=== PATIENT | female | born 1990 | race Caucasian/White ===

== ENCOUNTER 2023-06-02 19:05 | Emergency (ER) | payer OTHER, SELFPAY ==
[2023-06-02 19:12] VITALS: BP 122/80; PULSE 86; RESP 20; TEMP 36.7; O2SAT 100; BMI 21.4
[2023-06-02 19:18] VITALS: PULSE 88
--- NOTE | 2023-06-02 19:23 | ED.CHESTPAI1 ---
HPI - Chest Pain General Chief Complaint: Chest Pain Stated Complaint: Shortness of Breath, Chest Pain Time Seen by Provider: 06/02/23 19:16 Source: patient and family Mode of arrival: walk-in Limitations: no limitations History of Present Illness HPI narrative: history of asthma. 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 left chest pressure present all day and feels short of breath. transient episode of nausea without recurrence. No fever or abdominal pain MD complaint: Reports chest pain Related Data Home Medications Medication Instructions Recorded Confirmed albuterol sulfate 90 mcg/actuation inhalation 06/02/23 aerosol inhaler (Ventolin HFA) buspirone 15 mg tablet mg 06/02/23 escitalopram oxalate 5 mg tablet mg 06/02/23 hydroxyzine pamoate 50 mg capsule mg 06/02/23 valacyclovir 500 mg tablet mg 06/02/23 Allergies Allergy/AdvReac Type Severity Reaction Status Date / Time No Known Drug Allergies Allergy Verified 06/02/23 19:15 Review of Systems ROS Status of ROS 10 or more systems reviewed and unremarkable except as noted in history and below [facility] Social History Smoking status: Current every day smoker Exam Constitutional Vital Signs, click to edit/add: Last Vital Signs Temp 98.1 F 06/02/23 19:12 Pulse 71 06/02/23 19:41 Resp 22 06/02/23 19:41 BP 122/80 06/02/23 19:12 Pulse Ox 100 06/02/23 19:41 O2 Del Method Room Air 06/02/23 19:41 Common normals: no apparent distress, average body habitus, oriented x3, no limitations, healthy appearing, alert and well nourished Eye Common normals: PERRL and EOMs intact bilaterally Respiratory Common normals: normal respiratory effort, no retractions, no use of accessory muscles and clear to auscultation bilaterally Cardio Common normals: regular rate, regular rhythm, S1 normal heart sound and S2 normal heart sound GI Common normals: Normal to inspection, nondistended, normoactive bowel sounds present, soft to palpation and non-tender Extremity Common normals: normal to inspection Neuro Common normals: oriented x3, CN's II-XII intact bilaterally, moves all extremities and no focal motor deficits Psych Appearance: grossly normal Course Vital Signs Vital signs: Vital Signs Temperature 98.1 F 06/02/23 19:12 Pulse Rate 86 06/02/23 19:12 Respiratory Rate 20 06/02/23 19:12 Blood Pressure 122/80 06/02/23 19:12 Pulse Oximetry 100 06/02/23 19:12 Oxygen Delivery Method Room Air 06/02/23 19:12 Temperature 98.1 F 06/02/23 19:12 Pulse Rate 71 06/02/23 19:41 Respiratory Rate 22 06/02/23 19:41 Blood Pressure 122/80 06/02/23 19:12 Pulse Oximetry 100 06/02/23 19:41 Oxygen Delivery Method Room Air 06/02/23 19:41 MDM - Chest Pain MDM Narrative Medical decision making narrative: asthmatic. Seen at urgent care and swabs for COVID19 neg. complains of constant chest pressure left sided. no fever. exam neg. found to have low potassium ? etiology. cxray and cardiac enzymes neg. Patient chest tightness resolved after solumedrol and duoneb. Discharged home to followup with her doctor Lab Data Labs: Lab Results 06/02/23 Range/Units 19:26 WBC 7.3 (4.0-11.0) 10^3/uL RBC 4.47 (4.20-5.40) 10^6/uL Hgb 13.6 (12.0-16.0) g/dL Hct 39.8 (36.0-48.0) % MCV 89.0 (81.0-99.0) fL MCH 30.4 (26.7-34.0) pg MCHC 34.2 (29.9-35.2) g/dL RDW 12.7 (11.0-15.0) % Plt Count 325 (150-450) 10^3/uL MPV 11.0 (9.5-13.5) fL Neut % (Auto) 44.8 (43.0-75.0) % Lymph % (Auto) 43.1 (20.5-60.0) % [place] % (Auto) 6.3 (1.7-12.0) % Eos % (Auto) 3.6 (0.9-7.0) % Baso % (Auto) 1.1 (0.2-2.0) % Neut # (Auto) 3.3 (1.4-6.5) 10^3/uL Lymph # (Auto) 3.1 (1.2-3.8) 10^3/uL [place] # (Auto) 0.5 (0.3-0.8) 10^3/uL Eos # (Auto) 0.3 (0.0-0.7) 10^3/uL Baso # (Auto) 0.1 (0.0-0.1) 10^3/uL Abs Immat Gran (auto) 0.08 H (0.00-0.03) 10^3/uL Imm/Tot Granulo (auto) 1.1 H (0.0-0.5) % D-Dimer <0.19 (<=0.59) mg/L FEU Sodium 138 (136-145) mmol/L Potassium 2.8 L* (3.5-5.1) mmol/L Chloride 102 (98-107) mmol/L Carbon Dioxide 26.2 (21.0-32.0) mmol/L Anion Gap 12.6 BUN 6.0 L (7.0-18.0) mg/dL Creatinine 0.64 (0.55-1.02) mg/dL Est GFR ( Amer) >60 (>=60) Est GFR (Non-Af Amer) >60 (>=60) BUN/Creatinine Ratio 9.4 Glucose 90 (74-106) mg/dL Calcium 9.4 (8.5-10.1) mg/dL Troponin I High Sens <4.0 L (4.0-51.3) pg/mL Imaging Data Chest x-ray: Radiologist's impression: ITS Impressions Chest X-Ray 06/02/23 19:26 IMPRESSION: No acute cardiopulmonary process. Electronically authenticated by: LEO AGUILLON Date: 06/02/2023 20:29 Discharge Plan Discharge Chief Complaint: Chest Pain Clinical Impression: Atypical chest pain, Hypokalemia Prescriptions / Home Meds: No Action hydroxyzine pamoate 50 mg capsule valacyclovir 500 mg tablet albuterol sulfate [Ventolin HFA] 90 mcg/actuation HFA aerosol inhaler INHALATION buspirone 15 mg tablet escitalopram oxalate 5 mg tablet Instructions: Noncardiac Chest Pain (ED) Referrals: [facility] [Primary Care Provider] - 1 week
--- NOTE | 2023-06-02 19:26 | XR_ITS ---
[address] [address] Patient Name: DALIA AKHTAR MRN: [id number] date: 1990 Sex: F Assigned Patient Location: ER Current Patient Location: ER Accession/Order Number: [id number] Exam Date: 06/02/2023 19:44 Report Date: 06/02/2023 20:29 At the request of: DANIELLE SANCHEZ Procedure: XR chest 1V EXAM: XR chest 1V CLINICAL INDICATION: chest pain TECHNIQUE: Portable frontal semi-erect view of the chest. COMPARISON: None. FINDINGS: Lines and tubes: None. Lungs: No convincing focal infiltrates. No pleural effusion or pneumothorax. Heart: Cardiac and mediastinal contours are unremarkable. No overt pulmonary vascular congestion. Osseous structures: No acute abnormalities. XR/XR chest 1V IMPRESSION: No acute cardiopulmonary process. Electronically authenticated by: LEO AGUILLON Date: 06/02/2023 20:29
--- NOTE | 2023-06-02 19:26 | ECG_ITS ---
[facility] Test Date: 2023-06-02 Pat Name: DALIA AKHTAR Department: Room: - Gender: Female [employer]: : 1990 Requested By: [id number] Order Number: [id number] Reading MD: WILLOW CARO Measurements Intervals [place] Rate: 88 P: 74 MI: 130 QRS: 80 QRSD: 80 T: 75 QT: 368 QTc: 414 Interpretive Statements 1100 Sinus rhythm 1102 Sinus arrhythmia 9110 normal ECG No previous ECG available for comparison Electronically Signed On 06-03-2023 6:54:49 EST by WILLOW CARO
[2023-06-02] MEDS: METHYLPREDNISOLONE SOD SUCC PF 125 MG/2 ML VIAL IVP (19:38)
[2023-06-02 19:41] VITALS: PULSE 71; RESP 22; O2SAT 100
[2023-06-02] MEDS: IPRATROPIUM/ALBUTEROL SULFATE 3 ML AMPUL.NEB IH (19:41)
--- NOTE | 2023-06-02 19:44 | PC.NURSE ---
Feels like she cant get a full breath
[2023-06-02 20:08] LABS: Basophils Absolute Auto 0.1 10^3/uL (0.0-0.1); Basophils Percent Auto 1.1 % (0.2-2.0); Eosinophils Absolute Auto 0.3 10^3/uL (0.0-0.7); Eosinophils Percent Auto 3.6 % (0.9-7.0); Hematocrit 39.8 % (36.0-48.0); Hemoglobin 13.6 g/dL (12.0-16.0); Immature Granulocytes Abs Auto 0.08 10^3/uL (0.00-0.03); Immature Granulocytes Pct Auto 1.1 % (0.0-0.5); Lymphocytes Absolute Auto 3.1 10^3/uL (1.2-3.8); Lymphocytes Percent Auto 43.1 % (20.5-60.0); Mean Corpuscular HGB Conc 34.2 g/dL (29.9-35.2); Mean Corpuscular Hemoglobin 30.4 pg (26.7-34.0); Monocytes Absolute Auto 0.5 10^3/uL (0.3-0.8); Monocytes Percent Auto 6.3 % (1.7-12.0); Neutrophils Absolute Auto 3.3 10^3/uL (1.4-6.5); Neutrophils Percent Auto 44.8 % (43.0-75.0); Platelet Count 325 10^3/uL (150-450); Red Blood Count 4.47 10^6/uL (4.20-5.40); Red Cell Distribution Width 12.7 % (11.0-15.0); White Blood Count 7.3 10^3/uL (4.0-11.0)
[2023-06-02 20:17] LABS: D Dimer <0.19 mg/L FEU (<=0.59)
[2023-06-02 20:23] LABS: Anion Gap 12.6; BUN Creatinine Ratio 9.4; Calcium 9.4 mg/dL (8.5-10.1); Carbon Dioxide 26.2 mmol/L (21.0-32.0); Chloride 102 mmol/L (98-107); Estimated GFR (African America >60 (>=60); Estimated GFR (Non-African Ame >60 (>=60); Glucose 90 mg/dL (74-106); Sodium 138 mmol/L (136-145); Troponin I High Sensitivity <4.0 pg/mL (4.0-51.3)
[2023-06-02 20:25] LABS: Potassium 2.8 mmol/L (3.5-5.1)
[2023-06-02] MEDS: POTASSIUM CHLORIDE 10 MEQ ER TABLET 40 MEQ PO (20:49)
[2023-06-02 21:37] VITALS: BP 92/52; PULSE 74; RESP 20; O2SAT 99
== END 2023-06-02 21:39 | disposition home or self-care (01) ==
PROVIDERS: Emergency Provider Internal Medicine
DX: R07.89 Other chest pain (principal); E87.6 Hypokalemia; J45.909 Unspecified asthma, uncomplicated; Z79.899 Other long term (current) drug therapy; F17.210 Nicotine dependence, cigarettes, uncomplicated
CPT/HCPCS: 36415; 71045; 80048; 84484; 85025; 85378; 87804; 87811; 93005; 94640; 96374; 99285; J2930

== ENCOUNTER 2024-08-30 17:10 | Emergency (ER) | payer OTHER, SELFPAY ==
[2024-08-30] VITALS (15 sets, daily range): BP systolic 97–124; BP diastolic 59–71; PULSE 59–87; TEMP 37.1; O2SAT 96–100; BMI 19.8
--- OUTSIDE RECORDS SUMMARY | 2024-08-30 17:17 | XMS_ITS | CCD ---
Author Organization [facility] CliniSynv Care Team Providers Care Agricultural Aircraft Pilot Name Role Phone Ofelia Magana Unavailable Unavailable Primary Care Provider Unavailcarlyn MckoyMateo tran Unavailable China Truong Unavailable OFELIA MAGANA Primary Care Unavailable DANIELLE SANCHEZ Admitting Unavailable DANIELLE SANCHEZ Attending Unavailable DANIELLE SANCHEZ Consulting Unavailable RANDY CALVO Consulting Unavailable Natalie Prieto Unavailable Kristie Posada Unavailable QUIN RICE Referring Unavailable OFELIA MAGANA Primary Care Unavailable OFELIA MAGANA Referring Unavailable OFELIA MAGANA Primary Care Unavailable OFELIA MAGANA Referring Unavailable OFELIA MAGANA Primary Care Unavailable OFELIA MAGANA Referring Unavailable OFELIA MAGANA Primary Care Unavailable Estela NUCLEAR PHYSICIST-ANTHROPOLOGIST, Ofelia Primary Care Provide r Allergies Allergy Classification Reported Allergen(s) Allergy Type Date of Onset Reaction(s) Facility (5 sources) Shellfish; Translations: [SHELLFISH DERIVED] Propensity to adverse reactions to food (disorder) 1 Hives, Rash [facility] Repository Medications Current Medications Medication Drug Class(es) Dates Sig (Normalized) Sig (Original) [id number] 200 actuat albuterol 0.09 mg/actuat metered dose inhaler (20 sources) beta2-Adrenergic Agonist Start: 06-26-2024 take 1 puff(s) by inhalation every four to six hours as needed for wheezing Albuterol Sulfate 90 mcg/actuation HFA aerosol inhaler Active 2 PUFF INHALATION EVERY 4-6 HOURS as needed for shortness of breath or wheezing 8.5 June 26, 2024 12:00am Start: 03-14-2022 take 2 puff(s) by in halation every four hours as needed Albuterol Sulfate HFA 108 (90 Base) MCG/ACT 2 puffs as needed Inhalation every 4 hrs Mar, Active Start: 03-14-2022 take 2 puff(s) by in halation every four hours as needed Albuterol Sulfate HFA 108 (90 Base) MCG/ACT 2 puffs as needed Inhalation every 4 hrs for 30 days Mar, Not-Taking/PRN Start: 03-14-2022 take 2 puff(s) by in halation every four hours as needed Albuterol Sulfate HFA 108 (90 Base) MCG/ACT 2 puffs as needed Inhalation every 4 hrs for 30 days Mar, Not-Taking Start: 05-21-2021 take 2 puff(s) by in halation every four hours as needed Albuterol Sulfate HFA 108 (90 Base) MCG/ACT 2 puffs as needed Inhalation every 4 hrs May, Active Start: 05-21-2021 take 2 puff(s) by in halation every four hours as needed Albuterol Sulfate HFA 108 (90 Base) MCG/ACT 2 puffs as needed Inhalation every 4 hrs May, Active Start: 11-30-2020 take 1 puff(s) by in halation every four hours as needed ProAir HFA 108 (90 Base) MCG/ACT 1 puff as needed Inhalation every 4 hrs for 30 days Nov, Not-Taking Start: 10-18-2020 take 2 puff(s) by in halation every four hours as needed Albuterol Sulfate HFA 108 (90 Base) MCG/ACT 2 puffs as needed Inhalation every 4 hrs Nov, Active amoxicillin 875 mg / clavulanate 125 mg oral tablet (4 sources) Penicillin-class Antibacterial Start: 08-06-2021 take 1 tablet by mouth every twelve hours Amoxicillin-Pot Clavulanate 875-125 MG 1 tablet Orally every 12 hrs for 7 day(s) Jul, Active Start: 08-07-2020 take 1 tablet by shahbaz th every twelve hours Amoxicillin-Pot Clavulanate 875-125 MG 1 tablet Orally every 12 hrs for 7 days Jul, Not-Taking ARIPiprazole (3 sources) Atypical Antipsychotic Abilify Active azithromycin 250 mg oral tablet (3 sources) Macrolide Antimicrobial Start: 2021 Azithromycin 250 MG 2 tablets on the first day, then 1 tablet daily for 4 days Orally Once a day for 5 day(s) May, Active cariprazine 1.5 mg oral capsule (7 sources) Atypical Antipsychotic take 1 capsule by mouth every twenty-four hours Vraylar 1.5 MG 1 capsule Orally Once a day Active clotrimazole 0.01 mg/mg topical ointment (3 sources) Azole Antifungal Start: 2020 Alevazol 1 % 1 application Externally Twice a day for 28 day(s) Jan, Active 12 hr dextromethorphan hydrobromide 30 mg / guaiFENesin 600 mg extended release oral tablet (2 sources) Uncompetitive C-waogdp-A-aspartate Receptor Antagonist, Sigma-1 Agonist Start: 2021 take 1 tablet by mouth every twelve hours Mucinex DM 30-600 MG 1 tablet as needed Orally every 12 hrs May, Active doxycycline monohydrate 100 mg oral capsule (3 sources) Tetracycline-class Drug Start: 2020 take 1 capsule by mouth every twelve hours Doxycycline Monohydrate 100 MG 1 capsule Orally every 12 hrs for 7 days Jan, Active Fish Oils (7 sources) take 1 capsule by mouth once daily Fish Oil 1000 MG 1 capsule Orally Once a day Active fluconazole 150 mg oral tablet (2 sources) Azole Antifungal Start: 2021 Diflucan 150 MG 1 tablet Orally take 1 tablet now then 1 tablet in 7 days for 2 days May, Active methylPREDNISolone 4 mg oral tablet (14 sources) Corticosteroid Start: 2024 take 1 tablet by mouth once Methylprednisolone (Medrol (Chaka)) 4 mg tablets,dose pack Active 0 PO per package directions June 26, 2024 12:00am PO PER PKG DIR for 6 days Start: 03-14-2022 methylPREDNISo lone 4 MG as directed Orally Once a day for 6 days Mar, Not-Taking/PRN Start: 11-27-2021 methylPREDNISo lone 4 MG as directed Orally Once a day for 6 days Nov, Active Start: 05-21-2021 methylPREDNISo lone 4 MG as directed Orally Once a day for 6 days May, Active Start: 11-30-2020 Medrol (Chaka) 4 MG as directed Orally for daily dose take half with breakfast half with dinner for 6 days Nov, Not-Taking mupirocin 0.02 mg/mg topical ointment (4 sources) RNA Synthetase Inhibitor Antibacterial Start: 04-01-2021 Mupirocin 2 % 1 application to affected area Externally once per day for 7 days Mar, Active Start: 01-25-2021 Mupirocin 2 % 1 application with Qtip to affected area Externally 2 times a day for 7 days Jan, Active norethindrone 0.35 mg oral tablet (1 source) Start: 12-17-2023 take 1 tablet by mouth in the morning norethindrone (MICRONOR) 0.35 mg tablet Indications: Encounter for initial prescription of contraceptive pills Take 1 tablet (0.35 mg total) by mouth in the morning. 84 tablet 3 12/17/2023 Active omega 7-sgt-syl-fish oil (Fish OiL) 300-1,000 mg capsule (3 sources) omega 9-ctg-moj-fish oil (Fish OiL) 300-1,000 mg capsule Take by mouth. Active ondansetron 4 mg disintegrating oral tablet (9 sources) Serotonin-3 Receptor Antagonist Start: 08-04-2021 take 1 tablet by mouth every eight hours Ondansetron 4 MG 1 tablet on the tongue and allow to dissolve Orally tid for 5 day(s) Jul, Active Start: 04-01-2021 take 1 tablet by shahbaz th every eight hours as needed Zofran ODT 4 MG 1 tablet on the tongue and allow to dissolve Orally every 8 hrs as needed for 10 day(s) Mar, Active Start: 08-04-2020 take 1 tablet by shahbaz th every eight hours oseltamivir 75 mg oral capsule (1 source) Neuraminidase Inhibitor Start: 06-26-2024 take 1 capsule by mouth twice daily Oseltamivir 75 mg capsule Active 75 MG PO Twice daily 02 13June 26, 2024 12:00am Completed/Discontinued Medications Medication Drug Class(es) Dates Sig (Normalized) Sig (Original) amitriptyline hydrochloride 50 mg oral tablet (8 sources) Tricyclic Antidepressant Start: 02-02-2022 take 1 tablet by mouth every twenty-four hours Amitriptyline HCl 25 MG 1 tablet at bedtime Orally Once a day for 30 day(s) Jan, Active Start: 02-02-2022 take 1 tablet by shahbaz th every twenty-four hours Amitriptyline HCl 50 MG 1 tablet at bedtime Orally Once a day for 30 day(s) Jan, Not-Taking/PRN amoxicillin 500 mg oral capsule (7 sources) Penicillin-class Antibacterial Start: 09-30-2023 End: 06-26-2024 take 1 capsule by mouth every twelve hours Amoxicillin 500 mg capsule Discontinued 500 MG PO Every 12 hours 28 02September 29, 2023 11:00pm June 26, 2024 10:37am Start: 04-21-2023 take 1 tablet by shahbaz th every twelve hours Amoxicillin 500 MG 1 tablet Orally Twice a day for 10 Apr, Not-Taking/PRN Start: 02-13-2021 take 1 tablet by shahbaz th every eight hours Amoxicillin 875 MG 1 tablet Orally every 8 hrs for 10 day(s) Feb, Not-Taking benzonatate 100 mg oral capsule (3 sources) Non-narcotic Antitussive Start: 11-04-2019 take 1 capsule by mouth three times daily as needed Tessalon Perles 100 MG 1 capsule as needed Orally Three times a day for 5 days Oct, Not-Taking brompheniramine maleate 0.4 mg/ml / dextromethorphan hydrobromide 2 mg/ml / pseudoephedrine hydrochloride 6 mg/ml oral solution (5 sources) alpha-Adrenergic Agonist, Uncompetitive P-xnjeuh-O-asparta te Receptor Antagonist, Sigma-1 Agonist Start: 03-28-2022 take 10 mL by mouth every six hours as needed Pseudoeph-Bromp hen-DM 30-2-10 MG/5ML 10 mL Orally every 6 hours for 5 days Mar, Not-Taking/PRN 60 actuat budesonide 0.08 mg/actuat / formoterol fumarate 0.0045 mg/actuat metered dose inhaler (9 sources) Corticosteroid, beta2-Adrenergic Agonist Start: 12-04-2020 take 2 puff(s) by inhalation twice daily Symbicort 80-4.5 MCG/ACT 2 puffs Inhalation Twice a day for 30 day(s) Nov, Active Start: 12-04-2020 take 2 puff(s) by in halation twice daily as needed Symbicort 80-4.5 MCG/ACT 2 puffs Inhalation Twice a day for 30 day(s) Nov, Not-Taking/PRN busPIRone hydrochloride 15 m g oral tablet (18 sources) Start: 09-30-2023 End: 06-26-2024 Buspirone 15 mg tablet Discontinued MG PO September 29, 2023 11:00pm June 26, 2024 10:37am Start: 09-30-2023 Buspirone Acti ve MG PO September 30, 2023 12:00am take 1 tablet by shahbaz th in the morning busPIRone (BUSPAR) 5 mg tablet Take 1 tablet (5 mg total) by mouth in the morning. Active take 1 tablet by shahbaz th every twelve hours busPIRone HCl 15 MG 1 tablet Orally Twice a day Active BuSpar Active cetirizine hydrochloride 10 mg oral tablet (3 sources) Histamine-1 Receptor Antagonist Start: 11-04-2019 take 1 tablet by mouth every twenty-four hours Cetirizine HCl 10 MG 1 tablet Orally Once a day for 30 day(s) Oct, Not-Taking clindamycin 300 mg oral capsule (3 sources) Lincosamide Antibacterial Start: 12-04-2022 take 1 capsule by mouth every eight hours Clindamycin HCl 300 MG 1 cap(s) Orally tid for 10 days Nov, Not-Taking/PRN cyclobenzaprine hydrochloride 10 mg oral tablet (4 sources) Muscle Relaxant take 1 tablet by mouth every eight hours Cyclobenzaprine HCl 10 MG 1 tab(s) Orally 3 times a day Not-Taking/PRN dextromethorphan hydrobromide 1.5 mg/ml / pyrilamine maleate 1.5 mg/ml oral solution (10 sources) Uncompetitive V-oasesm-T-aspart ate Receptor Antagonist, Sigma-1 Agonist Start: 03-14-2022 [place] DM 7.5-7.5 MG/5ML 10 ml Orally every 6-8 hours as needed for 8 days Mar, Not-Taking/PRN Start: 11-30-2020 [place] DMT 30- 30 MG 1 tablet Orally every 6-8 hours for 7 days Nov, Not-Taking escitalopram 5 mg oral tablet (13 sources) Serotonin Reuptake Inhibitor Start: 09-30-2023 End: 06-26-2024 Escitalopram Oxalate 5 mg tablet Discontinued MG PO September 29, 2023 11:00pm June 26, 2024 10:37am Start: 09-30-2023 Escitalopram O xalate Active MG PO September 30, 2023 12:00am End: 10-01-2023 take 1 tablet by mouth once daily escitalopram (LEXAPRO) 20 mg tablet Take 20 mg by mouth daily. 10/01/2023 Discontinued (Therapy completed) Lexapro Active fluticasone propionate 0.05 mg/actuat metered dose nasal spray (11 sources) Corticosteroid Start: 03-28-2022 take 1 spray(s) nasal route once daily as needed Flonase Allergy Relief 50 MCG/ACT 1 spray in each nostril Nasally Once a day for 14 day(s) Mar, Not-Taking/PRN Start: 03-28-2022 take 1 spray(s) nasa l route once daily Flonase Allergy Relief 50 MCG/ACT 1 spray in each nostril Nasally Once a day for 14 day(s) Mar, Not-Taking Start: 11-04-2019 take 1 spray(s) nasa l route once daily Fluticasone Propionate 50 MCG/ACT 1 spray in each nostril Nasally Once a day for 14 day(s) Nov, Not-Taking hydrOXYzine pamoate 50 mg oral capsule (19 sources) Antihistamine Start: 09-30-2023 End: 06-26-2024 Hydroxyzine Pamoate 50 mg capsule Discontinued MG PO September 29, 2023 11:00pm June 26, 2024 10:37am Start: 09-30-2023 Hydroxyzine Pa moate Active MG PO September 30, 2023 12:00am take 1 tablet by shahbaz th in the morning, then take 1 tablet by mouth at bedtime hydrOXYzine (ATARAX) 10 mg tablet Take 1 tablet (10 mg total) by mouth in the morning and 1 tablet (10 mg total) before bedtime. Active take 1 tablet by shahbaz th every twenty-four hours hydrOXYzine HCl 50 MG 1 tablet at bedtime as needed Orally Once a day Active hydrOXYzine HCl Active ibuprofen 600 mg oral tablet (6 sources) Nonsteroidal Anti-inflammatory Drug Start: 12-04-2022 take 1 tablet by mouth three times daily at mealtime as needed Ibuprofen 600 MG 1 tablet with food or milk as needed Orally tid prn for 10 days Nov, Not-Taking/PRN Start: 02-13-2021 take 1 tablet by shahbaz th three times daily at mealtime as needed Ibuprofen 800 MG 1 tablet with food or milk as needed Orally Three times a day for 10 day(s) Feb, Active 1 ml medroxyPROGESTERone acetate 150 mg/ml injection (14 sources) Progestin Start: 10-01-2023 End: 10-01-2023 medroxyPROGESTERone (DEPO-PROVERA) injection 150 mg Start: 10-01-2023 End: 10-01-2023 inject 150 mg by intramuscular injection once 150 mg, intramuscular, Once, On Fri10/01/23 at 1200, For 1 dose, Look-alike/sound-alike medication - verify indication for use. Start: 11-27-2021 Depo-Provera 1 50 MG/ML 1 ml Intramuscular for 30 day(s) Nov, Active End: 12-17-2023 medroxyPROGESTERone (DEPO-UT OVERA) 150 mg/mL injection Inject 1 mL (150 mg total) into the appropriate muscle every 3 (three) months. 12/17/2023 Discontinued (Alternate therapy) metroNIDAZOLE 500 mg oral tablet (3 sources) Nitroimidazole Antimicrobial Start: 08-07-2020 take 1 tablet by mouth twice daily Flagyl 500 MG 1 tablet Orally twice daily for 7 days Jul, Not-Taking NON FORMULARY (1 source) End: 10-01-2023 OLANZapine (7 sources) Atypical Antipsychotic OLANZapine Not-Taking OLANZapine Activ e predniSONE 20 mg oral tablet (4 sources) Start: 06-24-2022 take 1 tablet by mouth every twelve hours predniSONE 20 MG 1 tablet Orally 2 times a day for 5 day(s) Jun, Not-Taking/PRN Sulfamethoxazole / Trimethoprim (3 sources) Dihydrofolate Reductase Inhibitor Antibacterial, Sulfonamide Antimicrobial Bactrim Not-Taking Bactrim Active Toradol 30 mg/ml (14 sources) Start: 06-24-2022 Toradol 30 mg/ ml Jun, 30 mg Start: 02-13-2021 Toradol 30 mg/ ml Feb, 60 mg triamcinolone acetonide 40 mg/ml injectable suspension (5 sources) Corticosteroid Start: 06-24-2022 Kenalog-40 Jun, 40 mg Start: 04-01-2021 Triamcinolone Acetonide 0.5 % 1 application to affected area Externally Twice a day for 7 days Mar, Active valACYclovir 500 mg oral tablet (2 sources) Herpesvirus Nucleoside Analog DNA Polymerase Inhibitor, Herpes Simplex Virus Nucleoside Analog DNA Polymerase Inhibitor, Herpes Zoster Virus Nucleoside Analog DNA Polymerase Inhibitor Start: 08-21-2022 End: 10-29-2023 take 1 tablet by mouth in the morning, then take 1 tablet by mouth at bedtime valACYclovir (VALTREX) 500 mg tablet Indications: Vulvar lesion Take 1 tablet (500 mg total) by mouth in the morning and 1 tablet (500 mg total) before bedtime. 10 tablet 08/21/2022 10/29/2023 Discontinued (Therapy completed) Problems Active Problems Problem Classification Problem Date Documented Da te Episodic/Chronic Abdominal pain (3 sources) Unspecified abdominal pain; Translations: [UNSPECIFIED ABDOMINAL PAIN] Onset: 06-28-2022 Episodic Anxiety disorders (15 sources) Generalized anxiety disorder; Translations: [Generalized anxiety disorder] 12-17-2023 Chronic Asthma (20 sources) Acute exacerbation of mild persistent asthma; Translations: [Mild persistent asthma with (acute) exacerbation] Onset: 11-27-2021 Resolved: 11-27-2021 Chronic Bacterial infection; unspecified site (1 source) Other specified bacterial agents as the cause of diseases classified elsewhere Episodic Contraceptive and procreative management (7 sources) Encounter for other general counseling and advice on contraception; Translations: [Contraception ] Onset: 11-27-2021 Resolved: 11-27-2021 Episodic Delirium, dementia, and amnestic and other cognitive disorders (9 sources) Postconcussion syndrome; Translations: [Postconcussional syndrome] Chronic Diabetes mellitus without complication (1 source) Other abnormal glucose Episodic Disorders of teeth and jaw (3 sources) Periapical abscess without sinus; Translations: [Dental caries, unspecified] Onset: 02-13-2021 Resolved: 02-13-2021 Episodic Headache; including migraine (3 sources) Migraine; Translations: [Migraine, unspecified, not intractable, without status migrainosus] Onset: 12-15-2018 12-15-2018 Chronic Immunizations and screening for infectious disease (4 sources) Contact with and (suspected) exposure to other viral communicable diseases; Translations: [Suspected clinical finding] Onset: 03-27-2021 Resolved: 03-27-2021 Episodic Influenza (2 sources) Influenza due to Influenza A virus; Translations: [Influenza due to other identified influenza virus with other respiratory manifestations] 06-26-2024 Episodic Intracranial injury (1 source) Concussion without loss of consciousness, subsequent encounter Episodic Mood disorders (1 source) Bipolar I disorder; Translations: [Bipolar disorder, unspecified] 12-17-2023 Chronic Other aftercare (1 source) Other fdc (current) drug therapy; Translations: [OTH MCC CURRENT DRUG THERAPY] Onset: 07-01-2022 Episodic Other female genital disorders (2 sources) Personal history of other diseases of the female genital tract; Translations: [Personal history of other diseases of the female genital tract] Onset: 10-29-2023 Episodic Other gastrointestinal disorders (1 source) Constipation, unspecified; Translations: [CONSTIPATION UNSPECIFIED] Onset: 07-01-2022 Episodic Other nervous system disorders (3 sources) Carpal tunnel syndrome of left wrist; Translations: [Carpal tunnel syndrome, left upper limb] Onset: 12-17-2023 09-30-2023 Chronic Other nervous system disorders (1 source) Carpal tunnel syndrome, left upper limb; Translations: [Carpal tunnel syndrome] 09-30-2023 Chronic Other upper respiratory disease (14 sources) Seasonal allergy; Translations: [Other seasonal allergic rhinitis] Chronic Other upper respiratory infections (7 sources) Acute pharyngitis, unspecified; Translations: [Acute upper respiratory infection, unspecified] Episodic Ovarian cyst (1 source) Unspecified ovarian cyst, right side; Translations: [UNSPECIFIED OVARIAN CYST RIGHT SIDE] Onset: 07-01-2022 Episodic Screening and history of mental health and substance abuse codes (2 sources) Encounter for screening for depression; Translations: [Standardized adult depression screening tool completed ] Onset: 10-29-2023 4 Episodic Sprains and strains (1 source) Strain of muscle, fascia and tendon at neck level, initial encounter Episodic Substance-related disorders (1 source) Nicotine dependence, cigarettes, uncomplicated; Translations: [NICOTINE DEPEND CIGARETTES UNCOMP] Onset: 07-01-2022 Chronic Unclassified (1 source) Gynecologic Exam Onset: 10-29-2023 Past or Other Problems Problem Classification Problem Date Documented Da te Episodic/Chronic Allergic reactions (1 source) Allergic contact dermatitis, unspecified cause Onset: 04-01-2021 Resolved: 04-01-2021 Episodic Mood disorders (2 sources) Mood disorders Onset: 10-29-2023 10-29-2023 Nausea and vomiting (1 source) Nausea Onset: 04-01-2021 Resolved: 04-01-2021 Episodic Other female genital disorders (1 source) History of abnormal cervical Papanicolaou smear ; Translations: [Personal history of other diseases of the female genital tract] 10-29-2023 Episodic Other nutritional; endocrine; and metabolic disorders (1 source) Abnormal weight loss Onset: 04-01-2021 Resolved: 04-01-2021 Episodic Pneumonia (except that caused by tuberculosis or sexually transmitted disease) (1 source) Pneumonia, unspecified organism Onset: 05-21-2021 Resolved: 05-21-2021 Episodic Residual codes; unclassified (1 source) Nicotine-filled electronic cigarette user; Translations: [Tobacco use] Onset: 12-17-2023 12-17-2023 Episodic Unclassified (1 source) Contact with and (suspected) exposure to covid-19 Z20.822 Results Test Name Value Interpretation Reference Range Facility CHLAMYDIA/GC PCR, FLon 10-28 CHLAMYDIA/GC PCR, FL SPECIMEN SOURCE ThinPrep CHLAMYDIA DNA(PCR) Negative (qualifier value) Chlamydia trachomatis not detected by nucleic acid amplification. This does not exclude the possibility of infection because results are dependent on adequate specimen collection. GONORRHOEAE DNA(PCR) Negative (qualifier value) Neisseria gonorrhoeae not detected by nucleic acid amplification. This does not exclude the possibility of infection because results are dependent on adequate specimen collection. Normal [facility] Comment on above: Performed By: #### C GT #### [facility] ([id number]) [address] [place] [address], [place] [id number] [facility] ([id number]) [address] [place] [address], [address] [place] [address] Cytologyon 10-29-2023 Cytology Abnormal [facility] Comment on above: Result Comment: [facility] [address] [place] [id number] Gynecologic Cytology Consultation Patient Name:NATALYA KINCAID:1990 (Age: 32)Gender:FTaken:4Reported:4Physician(s):Quin Rice APRN-CNPCopy To: Rec. #:[id number]: #[id number] Final Cytologic Interpretation ThinPrep Pap Test (Cervical): Satisfactory for evaluation. A transformation zone component is present. SQUAMOUS EPITHELIAL CELL ABNORMALITY Atypical squamous cells of undetermined significance (ASC-US). 11/10/2023 Interpretation performed at [facility], [address] [place] [id number], License number: [id number]. Electronically Signed Out By Tarun Hayes MD Date of Last Menstrual Period: (None Given) Other Clinical Conditions: Previous abnormal pap Z01.419 Drop Crew Laborer exam wo/abn findings Source of Specimen ThinPrep Pap Test (Cervical) Thin Prep Pap (FINANCIAL ADVISER) Fee Code(s): G0145, 79474 The Pap test is a screening test with an inherent, but low, probability of error. The Pap test is primarily effective for the diagnosis and prevention of squamous cell carcinoma. Regular screening is critical for prevention. ThinPrep liquid-based slides, which meet the Core Analysis Operator criteria for automated screening, have been screened by the ThinPrep Imaging System (as of 01/26/07) along with an additional manual rescreening by a chin strap maker and, if indicated, by a pathologist. HIGH RISK HPV W/GENOon 10-28 HPV 31+33+35+39+45+51+52+5 6+58+59+66+68 DNA ETHAN+probe Ql (Cvx) HPV SPECIMEN TYPE ThinPrep HPV 16 Negative (qualifier value) HPV 18 Negative (qualifier value) OTHER HIGH RISK HPV Negative (qualifier value) HPV types 31,33,35,39,45,52,56 ,58,59,66 and 68 DNA were undetectable. Normal [facility] Comment on above: Performed By: #### 7 1431-1 #### [facility] ([id number]) [address] [facility] [place] [address] [facility] ([id number]) [address] [place] [address], [address] [place] [address] POCT , urineon 09-10 Beta HCG ( test) Ql (U) Negative [facility] Interpretation and review of laboratory results Normal [facility] No Panel InformationOrdered By: Ashley Newsome on 09-30-2023 Quick Strep (POC) [facility] COVID + FLU Quick Testingon 06-02-2023 SARS-CoV-2 (COVID-19) RNA ETHAN+probe Ql (Unsp spec) Negative [email or web address] Other COVID + FLU Quick Testing Negative [email or web address] Other COVID + FLU Quick Testingon 04-21-2023 SARS-CoV-2 (COVID-19) RNA ETHAN+probe Ql (Unsp spec) Negative [email or web address] Other COVID + FLU Quick Testing negtive [employer] [facility] [employer] Other COVID + FLU Quick Testing Negative [email or web address] Other Quick Strepon 04-21-2023 S. pyogenes Org specific cx Ql (Throat) Negative [email or web address] Other Quick Strep [email or web address] Other AMYLASEon 06-29-2022 Amylase [Catalytic activity/Vol] 19 U/L Critically low 25-[address] [facility] Comment on above: Performed By: #### C KARUNA GARCIA AMY #### [facility] [address] [place] [address] Dr. Robson Marino CBC AUTO DIFFon 06-29-2022 BASO # 0.0 103/ul Normal 0.0-0.[address] [facility] Comment on above: Performed By: #### C BC #### [facility] [address] [address] [address] Robson Marino Basophils/100 WBC (Bld) 0.2 % Normal 0.2-2.[address] [facility] Comment on above: Performed By: #### C BC #### [facility] [address] [address] [address] Robson Marino EO # 0.1 103/ul Normal 0.0-0.7 [facility] Comment on above: Performed By: #### C BC #### [facility] [address] [place] [address] Dr. Robson Marino Eosinophils/100 WBC (Bld) 0.7 % Critically low 0.9-7.[address] [facility] Comment on above: Performed By: #### C BC #### [facility] [address] [place] [address] Dr. Robson Marino Erythrocyte distribution width (RBC) [Ratio] 13.2 % Normal 11.0-15.[address] [facility] Comment on above: Performed By: #### C BC #### [facility] [address] [place] [address] Dr. Robson Marino Hematocrit (Bld) [Volume fraction] 38.3 % Normal 36.0-48.[address] [facility] Comment on above: Performed By: #### C BC #### [facility] [address] [place] [address] Dr. Robson Marino Hemoglobin (Bld) [Mass/Vol] 13.0 g/dL Normal 12.0-16.0 [facility] Comment on above: Performed By: #### C BC #### [facility] [address] [place] [address] Dr. Robson Marino IG # 0.06 10e3/ul Critically high 0.00-0.03 [facility] Comment on above: Performed By: #### C BC #### [facility] [address] [place] [address] Dr. Robson Marino IG % 0.7 % Critically high 0.0-0.5 [facility] Comment on above: Performed By: #### C BC #### [facility] [address] [place] [address] Dr. Robson Marino LYMPH # 1.6 103/ul Normal 1.2-3.8 [facility] Comment on above: Performed By: #### C BC #### [facility] [address] [place] [address] Dr. Robson Marino Lymphocytes/100 WBC (Bld) 17.4 % Critically low 20.5-60.0 [facility] Comment on above: Performed By: #### C BC #### [facility] [address] [place] [address] Dr. Robson Marino MANUAL DIFF REQ NO Normal [facility] Comment on above: Performed By: #### C BC #### [facility] [address] [place] [address] Dr. Robson Marino MCH (RBC) [Entitic mass] 29.6 pg Normal 26.7-34.[address] [facility] Comment on above: Performed By: #### C BC #### [facility] [address] [place] [address] Dr. Robson Marino MCHC (RBC) [Mass/Vol] 33.9 g/dL Normal 29.9-35.2 [facility] Comment on above: Performed By: #### C BC #### [facility] [address] [place] [address] Dr. Robson Marino MCV (RBC) [Entitic vol] 87.2 fL Normal 81.0-99.0 [facility] Comment on above: Performed By: #### C BC #### [facility] [address] [place] [address] Dr. Robson Marino MONO # 0.5 103/ul Normal 0.3-0.8 [facility] Comment on above: Performed By: #### C BC #### [facility] [address] [place] [address] Dr. Robson Marino Monocytes/100 WBC (Bld) 5.1 % Normal 1.7-12.[address] [facility] Comment on above: Performed By: #### C BC #### [facility] [address] [place] [address] Dr. Robson Marino NEUT # 6.8 103/ul Critically high 1.4-6.5 [facility] Comment on above: Performed By: #### C BC #### [facility] [address] [place] [address] Dr. Robson Marino Neutrophils/100 WBC (Bld) 75.9 % Critically high 43.0-75.[address] [facility] Comment on above: Performed By: #### C BC #### [facility] [address] [place] [address] Dr. Robson Marino Platelet mean volume (Bld) [Entitic vol] 9.7 fL Normal 9.5-13.[address] [facility] Comment on above: Performed By: #### C BC #### [facility] [address] [place] [address] Dr. Robson Marino PLT 377 103/ul Normal 150-450 [facility] Comment on above: Performed By: #### C BC #### [facility] [address] [place] [address] Dr. Robson Marino RBC 4.39 106/ul Normal 4.20-5.40 [facility] Comment on above: Performed By: #### C BC #### [facility] [address] [place] [address] Dr. Robson Marino WBC 9.0 103/ul Normal 4.0-11.0 [facility] Comment on above: Performed By: #### C BC #### [facility] [address] [place] [address] ABD/PELV W CONon 06-29-19 CT ABD/PELV W CON EXAMINATION: CT ABD/PELV W CON HISTORY: GENERALIZED ABDOMINAL PAIN COMPARISON: CT abdomen and pelvis examination dated 11/21/2010. TECHNIQUE: Axial CT images through the abdomen and pelvis were obtained after the intravenous administration of 100 mL Omnipaque 300 contrast. Coronal and sagittal reformats were obtained. Dose reduction techniques were achieved by using automated exposure control and/or adjustment of mA and/or kV according to patient size and/or use of iterative reconstruction technique. FINDINGS: The visualized portions of the lung bases are clear. Abdomen: The liver and spleen enhance homogeneously without focal lesion. There is no intra or extrahepatic biliary duct dilatation. The gallbladder is unremarkable. There is a prominent amount of stool in the colon without evidence of bowel obstruction. Otherwise, the pancreas, adrenal glands, kidneys, and bowel loops, including the appendix, are unremarkable. There is no mesenteric or retroperitoneal lymphadenopathy. There is a tiny fat-containing umbilical hernia. Pelvis: The bladder demonstrates mild wall thickening. The rectum is unremarkable. There is no iliac or inguinal lymphadenopathy. The uterus is present. The left ovary appears within normal limits by CT. There is a right ovarian cyst measuring up to 2.1 x 2.1 cm (series 5, image 107). Bone windows show no aggressive osseous lesions. IMPRESSION: 1. Prominent amount of stool in the colon without evidence of bowel obstruction. 2. Normal appendix. 3. Suspected right ovarian follicle measuring up to 2.1 cm. 4. Mild urinary bladder wall thickening. Please correlate with urinalysis for infection. Electronically authenticated by: Scott CALVO Date: 2022-06-29 00:[address] [facility] ER URINE PROFILEon 3 Bilirubin Ql (U) Negative Normal NEGATIVE [facility] Comment on above: Performed By: #### E RUR #### [facility] [address] [place] [address] Dr. Robson Marino Clarity (U) CLEAR Normal CLEAR [facility] Comment on above: Performed By: #### E RUR #### [facility] [address] [place] [address] Dr. Robson Marino Color (U) YELLOW Normal YELLOW [facility] Comment on above: Performed By: #### E RUR #### [facility] [address] [place] [address] Dr. Robson Marino ERUAHD A micrscopic examination will be performed if indicated. Normal [facility] Comment on above: Performed By: #### E RUR #### [facility] [address] [address] [address] Robson Marino Glucose Ql (U) Negative Normal NEGATIVE [facility] Comment on above: Performed By: #### E RUR #### [facility] [address] [place] [address] Dr. Robson Marino Hemoglobin Ql (U) Negative Normal NEGATIVE [facility] Comment on above: Performed By: #### E RUR #### [facility] [address] [place] [address] Dr. Robson Marino Ketones Ql (U) Negative Normal NEGATIVE [facility] Comment on above: Performed By: #### E RUR #### [facility] [address] [place] [address] Dr. Robson Marino LEUKOCYTES Negative Normal NEGATIVE [facility] Comment on above: Performed By: #### E RUR #### [facility] [address] [place] [address] Dr. Robson Marino Nitrite Ql (U) Negative Normal NEGATIVE [facility] Comment on above: Performed By: #### E RUR #### [facility] [address] [place] [address] Dr. Robson Marino pH (U) 6.0 [pH] Normal 5-[address] [facility] Comment on above: Performed By: #### E RUR #### [facility] [address] [place] [address] Dr. Robson Marino SPEC GRAVITY 1.020 Normal 1.005-<=1.[address] [facility] Comment on above: Performed By: #### E RUR #### [facility] [address] [place] [address] Dr. Robson Marino UA PROTEIN Negative Normal NEGATIVE/ TRACE [facility] Comment on above: Performed By: #### E RUR #### [facility] [address] [place] [address] Dr. Robson Marino UR MICRO IND NOT INDICATED Normal [facility] Comment on above: Performed By: #### E RUR #### [facility] [address] [place] [address] Dr. Robson Marino Urobilinogen Qn (U) 0.2 {Skinny'U}/dL Normal 0.2 - 1. [address] [facility] Comment on above: Performed By: #### E RUR #### [facility] [address] [place] [address] Dr. Robson Marino LIPASEon 06-29-2022 Lipase [Catalytic activity/Vol] 68.0 U/L Critically low 73.0-393.[address] [facility] Comment on above: Performed By: #### C MP, LIPA, PIYUSH #### [facility] [address] [place] [address] Dr. Robson Marino URon 06-29-2022 , QUAL Negative Normal NEGATIVE [facility] Comment on above: Performed By: #### P REGU #### [facility] [address] [place] [address] Dr. Robson Marino PROF 14(COMP METB)on 023 Albumin [Mass/Vol] 3.5 g/dL Normal 3.4-5.0 [facility] Comment on above: Performed By: #### C MP, LIPA, PIYUSH #### [facility] [address] [place] [address] Dr. Robson Marino Albumin/Globulin [Mass ratio] 1.2 {ratio} Normal [facility] Comment on above: Performed By: #### C MP, LIPA, PIYUSH #### [facility] [address] [place] [address] Dr. Robson Marino ALP [Catalytic activity/Vol] 62 U/L Normal 46-[address] [facility] Comment on above: Performed By: #### C MP, LIPA, PIYUSH #### [facility] [address] [place] [address] Dr. Robson Marino ALT [Catalytic activity/Vol] 20 U/L Normal 14-[address] [facility] Comment on above: Performed By: #### C MP, LIPA, PIYUSH #### [facility] [address] [place] [address] Dr. Robson Marino Anion gap [Moles/Vol] 11.2 mmol/L Normal [facility] Comment on above: Performed By: #### C MP, LIPA, PIYUSH #### [facility] [address] [place] [address] Dr. Robson Marino AST [Catalytic activity/Vol] 10 U/L Critically low 15-[address] [facility] Comment on above: Performed By: #### C MP, LIPA, PIYUSH #### [facility] [address] [place] [address] Dr. Robson Marino Bilirubin [Mass/Vol] 0.3 mg/dL Normal 0.2-1.[address] [facility] Comment on above: Performed By: #### C MP, LIPA, PIYUSH #### [facility] [address] [place] [address] Dr. Robson Marino Calcium [Mass/Vol] 8.6 mg/dL Normal 8.5-10.1 [facility] Comment on above: Performed By: #### C MP, LIPA, PIYUSH #### [facility] [address] [place] [address] Dr. Robson Marino Chloride [Moles/Vol] 102 mmol/L Normal 98-107 [facility] Comment on above: Performed By: #### C MP, LIPA, PIYUSH #### [facility] [address] [place] [address] Dr. Robson Marino CO2 [Moles/Vol] 27.8 mmol/L Normal 21.0-32.0 [facility] Comment on above: Performed By: #### C MP, LIPA, PIYUSH #### [facility] [address] [place] [address] Dr. Robson Marino Creatinine [Mass/Vol] 0.61 mg/dL Normal 0.55-1.[address] [facility] Comment on above: Performed By: #### C MP, LIPA, PIYUSH #### [facility] [address] [place] [address] Dr. Robson Marino EGFR-AF CHILEAN >60 Normal >=60 [facility] Comment on above: Performed By: #### C MP, LIPA, PIYUSH #### [facility] [address] [place] [address] Dr. Robson Marino EGFR-NON AF CHILEAN >60 Normal >=[address] [facility] Comment on above: Performed By: #### C KARUNA GARCIA, PIYUSH #### [facility] [address] [place] [address] Dr. Robson Marino Globulin (S) [Mass/Vol] 3.0 g/dL Normal [facility] Comment on above: Performed By: #### C YOKASTA GARCIAA, PIYUSH #### [facility] [address] [place] [address] Dr. Robson Marino Glucose [Mass/Vol] 122 mg/dL Critically high 74-106 [facility] Comment on above: Performed By: #### C KARUNA GARCIA, PIYUSH #### [facility] [address] [place] [address] Dr. Robson Marino Potassium [Moles/Vol] 3.0 mmol/L Critically low 3.5-5.[address] [facility] Comment on above: Performed By: #### C KARUNA GARCIA, PIYUSH #### [facility] [address] [place] [address] Dr. Robson Marino Protein [Mass/Vol] 6.5 g/dL Normal 6.4-8.2 [facility] Comment on above: Performed By: #### C KARUNA AGRCIA, PIYUSH #### [facility] [address] [place] [address] Dr. Robson Marino Sodium [Moles/Vol] 138 mmol/L Normal 136-145 [facility] Comment on above: Performed By: #### C YOKASTA GARCIAA, PIYUSH #### [facility] [address] [place] [address] Dr. Robson Marino Urea nitrogen [Mass/Vol] 7.0 mg/dL Normal 7.0-18.[address] [facility] Comment on above: Performed By: #### C KARUNA GARCIA, PIYUSH #### [facility] [address] [place] [address] Dr. Robson Marino Urea nitrogen/Creatinine [Mass ratio] 11.5 mg/mg Normal [facility] Comment on above: Performed By: #### C YOKASTA GARCIAA, PIYUSH #### [facility] [address], [place] [address] Dr. Robson Marino COVID/FLU/RSV RT-PCRon 03-28 SARS-CoV-2 (COVID-19) RNA ETHAN+probe Ql (Unsp spec) Negative [email or web address] Other COVID/FLU/RSV RT-PCR Negative [employer] Other Quick Strepon 03-28-2022 S. pyogenes Org specific cx Ql (Throat) Negative [email or web address] Other Quick Strep [email or web address] Other A1C HEMOGLOBINon 03-14-2022 HbA1c (Bld) [Mass fraction] 5.5 % [email or web address] Other HbA1c (Bld) [Mass fraction]o n 03-14-2022 A1C HEMOGLOBIN [employer] Other Telephone Encounteron 2021 [employer] Operator Authentication Interface Message Text Unfortunately we do not have much before the end of the year. Urgent appointments are saved for walk-ins and cancer patient's only. I scheduled Ms. Medrano for March 14. Left voicemail asking her to call back should appointment date/time not work for her. Thank you. Normal [facility] [employer] [facility] Telephone Encounteron 2021 [employer] Operator Authentication Interface Message Text Patient called in stating she has been throwing up this morning and will be unable to make her appointment today. Patient informed we are currently booking consultations into April, but patient said she cannot wait that long for her consultation as she booked this appointment back in September. Please call patient o advise at [phone]. Thank you! Normal [facility] [employer] [facility] Urinalysis - AUTOMATEDon Appearance (U) clear [employer] Other Bilirubin Ql (U) Negative [employer] Other Color (U) yellow [email or web address] Other Glucose Ql (U) Negative [employer] Other Hemoglobin Ql (U) Negative [employer] Other Ketones Ql (U) Negative [employer] Other Leukocyte esterase Test strip Ql (U) Negative [email or web address] Other Nitrite Ql (U) Negative [employer] Other pH (U) 6.5 [pH] [email or web address] Other Protein Ql (U) Negative [employer] Other Specific gravity (U) [Rel density] 1.015 [email or web address] Other Urobilinogen (U) [Mass/Vol] 0.2 mg/dL [email or web address] Other Urinalysis - AUTOMATED No rt [employer] films Other Chlamydia/GC/Trich NAAon Chlamydia Trachomotis, ETHAN Negative Normal Negative [facility] Comment on above: Order Comment: Reaso n for Exam High risk heterosexual behavior Performed By: #### G CCHLAMTRI #### [facility] , Neisseria Gonorrhoeae, ETHAN Negative Normal Negative [facility] Comment on above: Order Comment: Reaso n for Exam High risk heterosexual behavior Performed By: #### G CCHLAMTRI #### [facility] , Trichomonas ETHAN Negative Normal Negative [facility] Comment on above: Order Comment: Reaso n for Exam High risk heterosexual behavior Result Comment: Perf ormed at: =G - [facility] [place] [address] [place], [place] [id number] Waterproof[employer] Supervisor: Chel Gil MD, Phone: [phone] PERFORMED BY: [facility] [address] [place] [address] PATHOLOGIST AMUSEMENT RIDE OPERATOR KUNAL ALONSO M.D. Performed By: #### G CCHLAMTRI #### [facility] , XR chest 2V*on 12-04-2020 XR chest 2V* [facility] [place] [address] [place] [address] XRay Report Signed Patient: Natalya Medrano MR#: [id number] 5 : 1990 Acct:[id number] Age/Sex: 29 / F ADM Date: 12/04/20 Loc: [facility] Room: Type: [facility] Attending Dr: Ofelia GARLAND Ordering Provider: OFELIA MAGANA Date of Service: 12/04/20 XR/XR chest 2V*: SOB (shortness of breath) Copies to: OFELIA MAGANA Chest 12/04/2020. CLINICAL DATA: Shortness of breath with cough and congestion. FINDINGS: 2 views of the chest were obtained. No prior study is available for comparison. The cardiac silhouette is normal in size. The pulmonary vasculature is within normal limits. The lungs demonstrate mild diffuse interstitial changes. No pulmonary consolidation or collapse is identified. No pneumothorax or pleural effusion is seen. XR/XR chest 2V* IMPRESSION: Mild nonspecific pulmonary interstitial changes. Impression dictated by: Freddy Childs Jr., M.D.12/04/2020 5:50 PM Dictation Location: [address] [address] Transcribed By: [facility] 12/04/20 175 Dictated By: Freddy Childs Jr, MD 12/04/20 174 Signed By: 12/04/20 175 Normal [facility] Vital Signs Date Time Vital Sign Value Performing Clinician Facility 06-26-2024 10:33-0500 Body height 160.02 cm [facility] 06-26-2024 10:33-0500 Body mass index (BMI) [Ratio] 20.7 kg/m2 [facility] 06-26-2024 10:33-0500 Body temperature 97.5 [degF] [facility] 06-26-2024 10:33-0500 Body weight 53.18 kg [facility] 06-26-2024 10:33-0500 Diastolic blood pressure 72 mm[Hg] [facility] 06-26-2024 10:33-0500 Heart rate 95 /min [facility] 06-26-2024 10:33-0500 SaO2% (BldA) [Mass fraction] 96 % [facility] 06-26-2024 10:33-0500 Systolic blood pressure 110 mm[Hg] [facility] 12-17-2023 13:09-0400 Body height 160 cm [facility] 12-17-2023 13:09-0400 Body mass index (BMI) [Ratio] 21.61 kg/m2 [facility] 12-17-2023 13:09-0400 Body weight 55.34 kg [facility] 12-17-2023 13:09-0400 Diastolic blood pressure 62 mm[Hg] [facility] 12-17-2023 13:09-0400 Systolic blood pressure 102 mm[Hg] [facility] 10-29-2023 13:04-0400 Body height 160 cm [facility] 10-29-2023 13:04-0400 Body mass index (BMI) [Ratio] 21.29 kg/m2 [facility] 10-29-2023 13:04-0400 Body weight 54.52 kg [facility] 10-29-2023 13:04-0400 Diastolic blood pressure 64 mm[Hg] [facility] 10-29-2023 13:04-0400 Systolic blood pressure 100 mm[Hg] [facility] 10-01-2023 11:15-0400 Body height 160 cm [facility] 10-01-2023 11:15-0400 Body mass index (BMI) [Ratio] 21.36 kg/m2 [facility] 10-01-2023 11:15-0400 Body weight 54.7 kg [facility] 10-01-2023 11:15-0400 Diastolic blood pressure 60 mm[Hg] [facility] 10-01-2023 11:15-0400 Systolic blood pressure 94 mm[Hg] [facility] 09-30-2023 17:36-0400 Body height 160.02 cm [facility] 09-30-2023 17:36-0400 Body mass index (BMI) [Ratio] 21.7 kg/m2 [facility] 09-30-2023 17:36-0400 Body temperature 98.7 [degF] [facility] 09-30-2023 17:36-0400 Body weight 55.56 kg [facility] 09-30-2023 17:36-0400 Diastolic blood pressure 80 mm[Hg] [facility] 09-30-2023 17:36-0400 Heart rate 88 /min [facility] 09-30-2023 17:36-0400 Respiratory rate 18 /min [facility] 09-30-2023 17:36-0400 SaO2% (BldA) [Mass fraction] 96 % [facility] 09-30-2023 17:36-0400 Systolic blood pressure 124 mm[Hg] [facility] 06-02-2023 17:30-0500 Body height 161.93 cm Kristie Swetha Other [email or web address] Other 06-02-2023 17:30-0500 Body mass index (BMI) [Ratio] 20.76 kg/m2 Kristie Swetha Other [email or web address] Other 06-02-2023 17:30-0500 Body temperature 97.9 [degF] Kristie Swetha Other [email or web address] Other 06-02-2023 17:30-0500 Body weight 54.43 kg Kristie Swetha Other [email or web address] Other 06-02-2023 17:30-0500 Respiratory rate 16 /min Kristie Swetha Other [email or web address] Other 06-02-2023 17:30-0500 SaO2% (BldA) [Mass fraction] 97 % Kristie Swetha Other [email or web address] Other 04-21-2023 17:15-0500 Body height 161.93 cm Kristie Swetha Other [email or web address] Other 04-21-2023 17:15-0500 Body mass index (BMI) [Ratio] 20.41 kg/m2 Kristie Swetha Other [email or web address] Other 04-21-2023 17:15-0500 Body temperature 98.4 [degF] Kristie Swetha Other [email or web address] Other 04-21-2023 17:15-0500 Body weight 53.52 kg Kristie Swetha Other [email or web address] Other 04-21-2023 17:15-0500 Diastolic blood pressure 72 mm[Hg] Kristie Swetha Other [email or web address] Other 04-21-2023 17:15-0500 Respiratory rate 18 /min Kristie Swetha Other [email or web address] Other 04-21-2023 17:15-0500 SaO2% (BldA) [Mass fraction] 99 % Kristie Swetha Other [email or web address] Other 04-21-2023 17:15-0500 Systolic blood pressure 114 mm[Hg] Kristie Swetha Other [email or web address] Other 12-04-2022 12:40-0400 Body height 161.93 cm Natalie Prieto Other [email or web address] Other 12-04-2022 12:40-0400 Body mass index (BMI) [Ratio] 21 kg/m2 Natalie Prieto Other [email or web address] Other 12-04-2022 12:40-0400 Body temperature 98.2 [degF] Natalie Mercedesmond Other [email or web address] Other 12-04-2022 12:40-0400 Body weight 55.07 kg Natalie Prieto Other [email or web address] Other 12-04-2022 12:40-0400 Diastolic blood pressure 66 mm[Hg] Natalie Mercedesmond Other [email or web address] Other 12-04-2022 12:40-0400 Respiratory rate 18 /min Natalie Prieto Other [email or web address] Other 12-04-2022 12:40-0400 SaO2% (BldA) [Mass fraction] 100 % Natalie Prieto Other [email or web address] Other 12-04-2022 12:40-0400 Systolic blood pressure 113 mm[Hg] Natalie Prieto Other [email or web address] Other 03-28-2022 16:05-0500 Body height 161.93 cm China Truong Other [email or web address] Other 03-28-2022 16:05-0500 Body mass index (BMI) [Ratio] 24.56 kg/m2 China Truong Other [email or web address] Other 03-28-2022 16:05-0500 Body temperature 97.8 [degF] China Truong Other [email or web address] Other 03-28-2022 16:05-0500 Body weight 64.41 kg China Truong Other [email or web address] Other 03-28-2022 16:05-0500 Respiratory rate 18 /min China Truong Other [email or web address] Other 03-28-2022 16:05-0500 SaO2% (BldA) [Mass fraction] 98 % China Truong Other [email or web address] Other 03-14-2022 15:30-0400 Body height 161.93 cm Ofelia Ruedaault Other [email or web address] Other 03-14-2022 15:30-0400 Body mass index (BMI) [Ratio] 24.22 kg/m2 Ofelia Estela Other [email or web address] Other 03-14-2022 15:30-0400 Body temperature 98.2 [degF] Ofelia Estela Other [email or web address] Other 03-14-2022 15:30-0400 Body weight 63.5 kg Ofelia Estela Other [email or web address] Other 03-14-2022 15:30-0400 Diastolic blood pressure 76 mm[Hg] Ofelia Estela Other [email or web address] Other 03-14-2022 15:30-0400 Respiratory rate 18 /min Ofelia Estela Other [email or web address] Other 03-14-2022 15:30-0400 SaO2% (BldA) [Mass fraction] 98 % Ofelia Magana Other [email or web address] Other 03-14-2022 15:30-0400 Systolic blood pressure 121 mm[Hg] Ofelia Estela Other [email or web address] Other 03-14-2022 11:45-0400 Body height 161.93 cm Mateo Amaya Other [email or web address] Other 03-14-2022 11:45-0400 Body mass index (BMI) [Ratio] 24.3 kg/m2 Mateo Amaya Other [email or web address] Other 03-14-2022 11:45-0400 Body weight 63.73 kg Mateo Amaya Other [email or web address] Other 03-14-2022 11:45-0400 Diastolic blood pressure 62 mm[Hg] Mateo Amaya Other [email or web address] Other 03-14-2022 11:45-0400 Respiratory rate 18 /min Mateo Amaya Other [email or web address] Other 03-14-2022 11:45-0400 SaO2% (BldA) [Mass fraction] 97 % Mateo Amaya Other [email or web address] Other 03-14-2022 11:45-0400 Systolic blood pressure 112 mm[Hg] Mateo Amaya Other [email or web address] Other 02-02-2022 11:00-0400 Body height 161.93 cm Ofelia Estela Other [email or web address] Other 02-02-2022 11:00-0400 Body mass index (BMI) [Ratio] 22.49 kg/m2 Ofelia Magana Other [email or web address] Other 02-02-2022 11:00-0400 Body temperature 98.2 [degF] Ofelia Magana Other [email or web address] Other 02-02-2022 11:00-0400 Body weight 58.97 kg Ofelia Magana Other [email or web address] Other 02-02-2022 11:00-0400 Diastolic blood pressure 64 mm[Hg] Ofelia Magana Other [email or web address] Other 02-02-2022 11:00-0400 Respiratory rate 18 /min Ofelia Magana Other [email or web address] Other 02-02-2022 11:00-0400 SaO2% (BldA) [Mass fraction] 100 % Ofelia Magana Other [email or web address] Other 02-02-2022 11:00-0400 Systolic blood pressure 107 mm[Hg] Ofelia Magana Other [email or web address] Other 11-27-2021 18:45-0400 Body height 161.93 cm Ofelia Magana Other [email or web address] Other 11-27-2021 18:45-0400 Body mass index (BMI) [Ratio] 22.83 kg/m2 Ofelia Magana Other [email or web address] Other 11-27-2021 18:45-0400 Body temperature 98.1 [degF] Ofelia Magana Other [email or web address] Other 11-27-2021 18:45-0400 Body weight 59.88 kg Ofelia Magana Other [email or web address] Other 11-27-2021 18:45-0400 Diastolic blood pressure 64 mm[Hg] Ofelia Magana Other [email or web address] Other 11-27-2021 18:45-0400 Respiratory rate 18 /min Ofelia Magana Other [email or web address] Other 11-27-2021 18:45-0400 SaO2% (BldA) [Mass fraction] 99 % Ofelia Magana Other [email or web address] Other 11-27-2021 18:45-0400 Systolic blood pressure 106 mm[Hg] Ofelia Magana Other [email or web address] Other 05-21-2021 11:00-0500 Body height 161.93 cm Ofelia Magana Other [email or web address] Other 05-21-2021 11:00-0500 Body mass index (BMI) [Ratio] 22.83 kg/m2 Ofelia Magana Other [email or web address] Other 05-21-2021 11:00-0500 Body temperature 98.3 [degF] Ofelia Magana Other [email or web address] Other 05-21-2021 11:00-0500 Body weight 59.88 kg Ofelia Magana Other [email or web address] Other 05-21-2021 11:00-0500 Diastolic blood pressure 60 mm[Hg] Ofelia Ruedaault Other [email or web address] Other 05-21-2021 11:00-0500 Respiratory rate 18 /min Ofelia Magana Other [email or web address] Other 05-21-2021 11:00-0500 SaO2% (BldA) [Mass fraction] 97 % Ofelia Magana Other [email or web address] Other 05-21-2021 11:00-0500 Systolic blood pressure 109 mm[Hg] Ofelia Magana Other [email or web address] Other 04-01-2021 10:30-0500 Body height 161.93 cm Ofelia Magana Other [email or web address] Other 04-01-2021 10:30-0500 Body mass index (BMI) [Ratio] 23.87 kg/m2 Ofelia Magnaa Other [email or web address] Other 04-01-2021 10:30-0500 Body temperature 99.2 [degF] Ofelia Magana Other [email or web address] Other 04-01-2021 10:30-0500 Body weight 62.6 kg Ofelia Magana Other [email or web address] Other 04-01-2021 10:30-0500 Diastolic blood pressure 63 mm[Hg] Ofelia Magana Other [email or web address] Other 04-01-2021 10:30-0500 Respiratory rate 18 /min Ofelia Magana Other [email or web address] Other 04-01-2021 10:30-0500 SaO2% (BldA) [Mass fraction] 100 % Ofelia Magana Other [email or web address] Other 04-01-2021 10:30-0500 Systolic blood pressure 128 mm[Hg] Ofelia Magana Other [email or web address] Other 02-13-2021 14:40-0400 Body height 161.93 cm Ofelia Magana Other [email or web address] Other 02-13-2021 14:40-0400 Body mass index (BMI) [Ratio] 25.77 kg/m2 Ofelia Magana Other [email or web address] Other 02-13-2021 14:40-0400 Body temperature 98.2 [degF] Ofelia Magana Other [email or web address] Other 02-13-2021 14:40-0400 Body weight 67.59 kg Ofelia Magana Other [email or web address] Other 02-13-2021 14:40-0400 Diastolic blood pressure 75 mm[Hg] Ofelia Magana Other [email or web address] Other 02-13-2021 14:40-0400 Respiratory rate 18 /min Ofelia Magana Other [email or web address] Other 02-13-2021 14:40-0400 SaO2% (BldA) [Mass fraction] 99 % Ofelia Magana Other [email or web address] Other 02-13-2021 14:40-0400 Systolic blood pressure 129 mm[Hg] Ofelia Ruedaault Other [email or web address] Other Encounters Encounter Date Encounter Type Care Provider Facility Start: 06-26-2024 End: 06-26-2024 ambulatory [facility] Work Phone: Start: 06-26-2024 End: 06-26-2024 Patient encounter procedure [facility] Work Phone: Start: 12-17-2023 End: 12-17-2023 Office outpatient visit 15 minutes [facility] 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[facility] [place] Comment on above: General counselling and advice on contraception (Primary Dx); Anxiety and depression; Bipolar 1 disorder ([facility]-HCC); Encounter for initial prescription of contraceptive pills Start: 12-17-2023 End: 12-17-2023 ambulatory [facility] Start: 10-29-2023 End: 10-29-2023 Patient encounter procedure [facility] Start: 10-29-2023 End: 10-29-2023 Periodic preventive med est patient 18-39 yrs [facility] 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[facility] [place] Comment on above: Well woman exam with routine gynecological exam (Primary Dx); Pap smear, as part of routine gynecological examination; Standardized adult depression screening tool completed; History of abnormal cervical Pap smear Start: 10-29-2023 End: 10-29-2023 [facility] Start: 10-29-2023 End: 10-29-2023 Encounter for gynecological examination (general) (routine) without abnormal findings [facility] Work Phone: Start: 10-01-2023 End: 10-01-2023 Office outpatient visit 15 minutes [facility] 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[facility] [place] Comment on above: Encounter for initia l prescription of injectable contraceptive (Primary Dx); General counseling and advice for contraceptive management Start: 10-01-2023 End: 10-01-2023 [facility] Start: 09-30-2023 End: 09-30-2023 ambulatory [facility] Work Phone: Start: 09-30-2023 End: 09-30-2023 Patient encounter procedure [facility] Work Phone: Start: 06-02-2023 End: 06-02-2023 ambulatory Kristie Swetha Other [email or web address] Other Start: 06-02-2023 Patient encounter procedure Kristie Swetha [facility] Start: 04-21-2023 End: 04-21-2023 ambulatory Kristie Swetha Other [email or web address] Other Start: 04-21-2023 Office outpatient vi sit 15 minutes Kristie Swetha [facility] Start: 12-04-2022 End: 12-04-2022 ambulatory Natalie Ida Other [email or web address] Other Start: 12-04-2022 Office outpatient vi sit 15 minutes Natalie Ida [facility] Start: 06-28-2022 End: 06-29-2022 ambulatory OFELIAALYSSA MAGANA Facility: Start: 06-24-2022 End: 06-24-2022 ambulatory Ofelia Estela Other [email or web address] Other Start: 06-24-2022 Telephone encounter Ofelia watt [facility] Start: 03-28-2022 End: 03-28-2022 ambulatory China Truong Other [email or web address] Other Start: 03-28-2022 Office outpatient vi sit 25 minutes China Truong [facility] Start: 03-14-2022 End: 03-14-2022 ambulatory Mateo Amaya Other [email or web address] Other Start: 03-14-2022 Office outpatient vi sit 15 minutes Mateo Amaya [facility] Start: 02-02-2022 End: 02-02-2022 ambulatory Ofelia Estela Other [email or web address] Other Start: 02-02-2022 Office outpatient vi sit 15 minutes Ofelia Estela [facility] Start: 01-24-2022 [facility] Start: 11-27-2021 End: 11-27-2021 ambulatory Ofelia Estela Other [email or web address] Other Start: 11-27-2021 Office outpatient vi sit 15 minutes Ofelia Estela [facility] Start: 08-03-2021 End: 08-03-2021 ambulatory Ofelia Estela Other [email or web address] Other Start: 08-03-2021 Telephone encounter Ofelia Breaul t [facility] Start: 05-21-2021 End: 05-21-2021 ambulatory Ofelia Estela Other [email or web address] Other Start: 05-21-2021 Office outpatient vi sit 25 minutes Ofelia Estela [facility] Start: 04-01-2021 End: 04-01-2021 ambulatory Ofelia Estela Other [email or web address] Other Start: 04-01-2021 Office outpatient vi sit 15 minutes Ofelia Estela [facility] Start: 03-27-2021 End: 03-27-2021 ambulatory Ofelia Estela Other [email or web address] Other Start: 03-27-2021 Telephone encounter Ofelia Breaul t [facility] Start: 02-13-2021 Office outpatient vi sit 15 minutes Ofelia Estela [facility] Procedures Date Procedure Procedure Detail Performing Clinician Start: 10-29-2023 Adult depression scr eening assessment [facility] 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 Professor Of 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 Start: 10-29-2023 Microscopic observat ion [Identifier] in Cervix by Cyto stain [facility] 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 Professor Of 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 Start: 10-01-2023 Urine test visual color cmprsn jasbirs Quin Gallo [facility] 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 Phone: Start: 09-30-2023 Quick Strep (POC) Start: 08-21-2022 Microscopic observat ion [Identifier] in Cervix by Cyto stain [facility] Assistant Professor Of Radiology Plan of Treatment Date Care Activity Detail Author Start: 2040 Shingles (RZV) Vacci ne (1 of 2) Shingles (RZV) Vaccine (1 of 2) [facility] Start: 10-28-2026 Screening for malign ant neoplasm of cervix Pap Smear [facility] Start: 08-21-2025 Screening for malign ant neoplasm of cervix Pap Smear [facility] Start: 12-16-2024 Adult BMI Screening Adult BMI Screen ing [facility] Start: 10-28-2024 Adult BMI Screening Adult BMI Screen ing [facility] Start: 10-28-2024 Depression Screening Depression Scre ening [facility] Start: 10-28-2024 Tobacco Screening Tobacco Screening [facility] Start: 09-30-2024 Adult BMI Screening Adult BMI Screen ing [facility] Start: 09-30-2024 Tobacco Screening Tobacco Screening [facility] Start: 01-11-2024 Influenza vaccination Influenza Vacc ine [facility] Start: 12-17-2023 End: 12-17-2023 ambulatory 12/17/2023 1:00 PM EDT Nurse Injection [facility] [place] [address] [place] [address] [facility] [place] Start: 10-21-2023 End: 10-21-2023 Patient encounter procedure 10/21/2023 11:30 AM EDT Office Visit [facility] [place] [address] [place] [address] [facility] [place] Start: 03-14-2022 End: 03-14-2022 Patient encounter procedure 03/14/2022 Office Visit Oral Surgery Tracy Cruz DMD, MD [address] [place] [id number] [facility] Start: 02-09-2022 Influenza vaccination Influenza Vacc ine (#1) [facility] Start: 12-14-2011 Screening for malign ant neoplasm of cervix Pap Smear [facility] Start: 2009 DTaP,Tdap and Td Vaccines (1 - Tdap) DTaP,Tdap and Td Vaccines (1 - Tdap) [facility] Start: 2009 Tetanus vaccination Tetanus (T d or Tdap) Booster [facility] Start: 2008 Hepatitis C screening Hepatitis C An tibody [facility] Start: 2008 Tetanus + diphtheria + acellular pertussis vaccine (product) Tdap Booster [facility] Start: 2005 HIV screening HIV Test [facility] Start: 2002 Depression Screening Depression Scre ening [facility] Start: 06-15-1991 COVID-19 Vaccine (#1) COVID-19 Vacci ne (#1) [facility] End: 10-28-2024 Chlamydia/GC by PCR ThinPrep fluid Chlamydia/GC by PCR ThinPrep fluid Microbiology Routine Pap smear, as part of routine gynecological examination 1 Occurrences starting 10/29/2023 until 10/28/2024 [facility] Comment on above: 1 Occurrences starti ng 10/29/2023 until 10/28/2024 End: 10-28-2024 Cytopathology procedure, preparation of smear, genital source Pap Smear Pathology and Cytology Routine Pap smear, as part of routine gynecological examination History of abnormal cervical Pap smear 1 Occurrences starting 10/29/2023 until 10/28/2024 [facility] Work Phone: Comment on above: 1 Occurrences starti ng 10/29/2023 until 10/28/2024 End: 10-28-2024 High risk HPV w/carmita High risk HPV w/carmita Lab Routine Pap smear, as part of routine gynecological examination History of abnormal cervical Pap smear 1 Occurrences starting 10/29/2023 until 10/28/2024 [facility] Comment on above: 1 Occurrences starti ng 10/29/2023 until 10/28/2024 Immunizations Immunization Date Immunization Notes Care Provider Fa cility 02-13-2021 Toradol 30 mg/ml Ofelia camilo Other [email or web address] Other Payers Date Payer Category Payer Private Health Insurance [facility] [id number] 2022-Present [phone] [address] [place] [address] [id number] 2021 Medicaid [id number] 2016 Unknown [id number] 1990 Unknown [id number] 1990 Unknown [id number] 1990 Unknown [id number] 1990 Unknown [id number] 1990 Unknown [id number] 1959 Unknown [id number] Medicaid [place] Advantage [id number] 201 [id number] Self-pay Self Pay [id number] Unknown O [id number] Social History Date Type Detail Facility Unknown if ever smoked [email or web address] Other Start: 06-14-2020 End: 10-01-2023 Sex Assigned At [employer] Other Tobacco smoking stat us [facility] Tobacco smoking consumption unknown [facility] Start: 1990 Sex Assigned At Not on file [facility] Start: 05-12-2011 End: 06-26-2024 Tobacco smoking status NHIS Smoker (finding) [facility] Start: 1990 Sex Assigned At Female [facility] Start: 10-01-2023 Tobacco smoking status PRIS Ex-smoker [facility] Start: 05-12-2011 End: 05-12-2021 History of tobacco use Cigarette Smoker [facility] History of tobacco use Tobacco U se Types Packs/Day Years Used Date Smoking Tobacco: Former Cigarettes 0.3 10 2011 Vaping/E-cigarettes Smokeless Tobacco: Never [facility] Start: 06-14-2020 End: 10-01-2023 Cigarettes smoked current (pack per day) - Reported 0.3 [facility] Start: 10-01-2023 Tobacco use and exposure Smokeless tobacco non-user [facility] Start: 10-01-2023 End: 12-17-2023 Alcoholic beverage intake Current non-drinker of alcohol (finding) [facility] Childcare Unknown [facility] Start: 06-26-2024 Sex Female (finding) [facility] Clinical Notes 02-13-2021 to 12-17-2023 LUIS Valentin - 12/17/2023 1:00 PM LUIS Head - 10/29/2023 1:00 [facility] 11[facility]00 AM EDT Note Date & Type Note Facility 12-17-2023 History of Present illness Narrative Natalya Kincaid is a 33 y.o.female. No LMP recorded. Patient has had an injection.. She presents for depo provera injection but desires to switch to pills today. She is sexually active with one male partner. Patient currrently vapes a lot due to increased stress at work and at home. Patient reports she was dismissed from [facility] behavioral health d/t missing an appointment. Her phych meds have been making her sick so she stopped them and states that makes her even more stressed. Current contraception:Depo-Provera OB History 4 Para 3 Term 3 AB 1 Living 3 SAB IAB Ectopic Multiple 0 Live Births 3 MEDICAL HX Past Medical History: Diagnosis Date Anemia Anxiety Bipolar 1 disorder (CMS-HCC) Concussion jan 2022 Cystic fibrosis carrier Depression Herpes SURGICAL HX History reviewed. No pertinent surgical history. FAMILY HX Family History Problem Relation Age of Onset Heart disease Paternal Grandfather Blood Clots Maternal Grandfather Cancer Maternal Grandfather skin No Known Problems Father No Known Problems Mother Ovarian cancer Cousin Stroke Neg Hx Hypertension Neg Hx Diabetes Neg Hx Colon cancer Neg Hx Breast cancer Neg Hx MEDS Current Outpatient Medications Medication Sig Dispense Refill busPIRone (BUSPAR) 5 mg tablet Take 1 tablet (5 mg total) by mouth in the morning. (Patient not taking: Reported on 12/17/2023) hydrOXYzine (ATARAX) 10 mg tablet Take 1 tablet (10 mg total) by mouth in the morning and 1 tablet (10 mg total) before bedtime. (Patient not taking: Reported on 12/17/2023) norethindrone (MICRONOR) 0.35 mg tablet Take 1 tablet (0.35 mg total) by mouth in the morning. 84 tablet 3 omega 2-uyl-tjb-fish oil (Fish OiL) 300-1,000 mg capsule Take by mouth. (Patient not taking: Reported on 12/17/2023) No current facility-administered medications for this visit. ALLERGIES Allergies Allergen Reactions Shellfish Derived Hives and Rash Review of Systems Constitutional: Negative. Respiratory: Negative. Negative for chest tightness and shortness of breath. Cardiovascular: Positive for chest pain. Patient reports occasional chest pain. She was seen at [place] [facility] and they didn't find anything so they sent her home. Genitourinary: Negative. Negative for dyspareunia, menstrual problem and pelvic pain. Neurological: Negative. Psychiatric/Behavioral: Negative. Objective BP 102/62 Ht 160 cm (5' 3 ) Wt 55.3 kg (122 lb) BMI 21.61 kg/m Physical Exam Vitals and nursing note reviewed. Constitutional: Appearance: Normal appearance. Cardiovascular: Rate and Rhythm: Normal rate and regular rhythm. Pulses: Normal pulses. Heart sounds: Normal heart sounds. Pulmonary: Effort: Pulmonary effort is normal. Breath sounds: Normal breath sounds. Musculoskeletal: General: Normal range of motion. Skin: General: Skin is warm and dry. Neurological: Mental Status: She is alert and oriented to person, place, and time. Psychiatric: Mood and Affect: Mood normal. Affect is tearful. Speech: Speech normal. Behavior: Behavior normal. Thought Content: Thought content normal. Judgment: Judgment normal. Assessment/Plan: Natalya was seen today for contraception. Diagnoses and all orders for this visit: General counselling and advice on contraception Anxiety and depression - [place], [place]; Future Bipolar 1 disorder ([facility]-HCC) - [place], [place]; Future Encounter for initial prescription of contraceptive pills - norethindrone (MICRONOR) 0.35 mg tablet; Take 1 tablet (0.35 mg total) by mouth in the morning. Discussed OCPs vs POPs. Patient will begin POPs and let us know if / when she stops vaping and we can switch to OCPs. Encouraged consistent condom use. List of area behavioral health providers given. All questions answered. Educational material provided through [employer]. RTO for annual (due October 2024) or sooner as needed. JERO Bobby APRN-CNP Lisa M Franco, APRN-CNP 12/17/23 1331 documented in this encounter [facility] 10-29-2023 History of Present illness Narrative Annual Well Woman Visit 10/29/2023 Subjective Natalya Kincaid is a 32 y.o. 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 Periods are rare, due to Depo Provera. Dysmenorrhea:none. Cyclic symptoms include anxiety. Denies intermenstrual bleeding, spotting, or abnormal discharge. Denies pelvic pain. Patient desires STD testing today. Complaints today: none Relationship status: in a relationship The patient reports that there is not domestic violence in her life. 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 to quit YES Children YES How many three vaginal deliveries Current contraception: Depo-Provera injections History of abnormal Pap smear: yes - ASC-H, positive other HR HPV Last pap: 08/21/2022 Regular self breast exam: no Last mammogram: n/a Family history of breast cancer: yes - maternal great aunt Family history of uterine or ovarian cancer: no Family history of pancreatic or prostate cancer: yes - maternal great grandpa Family history of colon cancer: no HPV vaccinated: no PHQ9 depression screenin OB History 4 Para 3 Term 3 AB 1 Living 3 SAB IAB Ectopic Multiple 0 Live Births 3 The following portions of the patient's history were reviewed and updated as appropriate: allergies, current medications, past family history, past medical history, past social history, past surgical history and problem list. MEDICAL HX Past Medical History: Diagnosis Date Anemia Anxiety Bipolar 1 disorder (CMS-HCC) Concussion jan 2022 Cystic fibrosis carrier Depression Herpes SURGICAL HX History reviewed. No pertinent surgical history. FAMILY HX Family History Problem Relation Age of Onset Heart disease Paternal Grandfather Blood Clots Maternal Grandfather Cancer Maternal Grandfather skin No Known Problems Father No Known Problems Mother Ovarian cancer Cousin Stroke Neg Hx Hypertension Neg Hx Diabetes Neg Hx Colon cancer Neg Hx Breast cancer Neg Hx MEDS Current Outpatient Medications Medication Sig Dispense Refill busPIRone (BUSPAR) 5 mg tablet Take 1 tablet (5 mg total) by mouth in the morning. hydrOXYzine (ATARAX) 10 mg tablet Take 1 tablet (10 mg total) by mouth in the morning and 1 tablet (10 mg total) before bedtime. medroxyPROGESTERone (DEPO-PROVERA) 150 mg/mL injection Inject 1 mL (150 mg total) into the appropriate muscle every 3 (three) months. omega 8-fwh-sax-fish oil (Fish OiL) 300-1,000 mg capsule Take by mouth. No current facility-administered medications for this visit. ALLERGIES Allergies Allergen Reactions Shellfish Derived Hives and Rash Review of Systems Constitutional: Negative. Respiratory: Negative. Negative for chest tightness and shortness of breath. Cardiovascular: Negative. Negative for chest pain and palpitations. Gastrointestinal: Positive for diarrhea. Negative for constipation, nausea and vomiting. Endocrine: Negative. Genitourinary: Negative. Negative for dyspareunia, menstrual problem and pelvic pain. Musculoskeletal: Negative. Skin: Negative. Allergic/Immunologic: Negative. Neurological: Negative. Hematological: Negative. Psychiatric/Behavioral: Negative. Objective BP 100/64 Ht 160 cm (5' 3 ) Wt 54.5 kg (120 lb 3.2 oz) LMP (LMP Unknown) BMI 21.29 kg/m Physical Exam Vitals and nursing note reviewed. Constitutional: Appearance: Normal appearance. HENT: Head: Normocephalic and atraumatic. Cardiovascular: Rate and Rhythm: Normal rate and regular rhythm. Pulses: Normal pulses. Heart sounds: Normal heart sounds. Pulmonary: Effort: Pulmonary effort is normal. Breath sounds: Normal breath sounds. Chest: Breasts: Breasts are symmetrical. Right: Normal. No mass, skin change or tenderness. Left: Normal. No mass, skin change or tenderness. Abdominal: General: Bowel sounds are normal. Palpations: Abdomen is soft. Genitourinary: General: Normal vulva. Labia: Right: No rash or lesion. Left: No rash or lesion. Vagina: Normal. Cervix: Normal. Uterus: Normal. Not enlarged and not tender. Adnexa: Right adnexa normal and left adnexa normal. Right: No mass, tenderness or fullness. Left: No mass, tenderness or fullness. Musculoskeletal: General: Normal range of motion. Cervical back: Normal range of motion and neck supple. Skin: General: Skin is warm and dry. Neurological: Mental Status: She is alert and oriented to person, place, and time. Psychiatric: Mood and Affect: Mood normal. Speech: Speech normal. Behavior: Behavior normal. Thought Content: Thought content normal. Judgment: Judgment normal. Assessment/Plan: Diagnoses and all orders for this visit: Well woman exam with routine gynecological exam Pap smear, as part of routine gynecological examination - Pap Smear; Future - Chlamydia/GC by PCR ThinPrep fluid; Future - High risk HPV w/carmita; Future Standardized adult depression screening tool completed History of abnormal cervical Pap smear - Pap Smear; Future - High risk HPV w/carmita; Future BMI is in the acceptable range. Breast self exam technique reviewed and patient encouraged to perform self-exam monthly. Discussed healthy lifestyle modifications. Educational material distributed. Encouraged cessation from vaping. Follow up in 1 year for annual hedge fund principal exam. Follow up as needed. Await pap. Discussed ASCCP screening guidelines. Discussed taking a multivitamin. Discussed Calcium and Vitamin D for prevention of osteoporosis. Discussed recommendations for HPV vaccine between 9-45 yo. Can be received at [facility] or the health department. Discussed need for yearly mammogram after 40 yo. Discussed colon cancer screening recommendations to begin at 45 yo, patient to discuss with PCP. All questions answered. TIESHA Brenner APRN-CNP Lisa M Franco, APRN-CNP 10/29/23 1336 documented in this encounter [facility] 10-01-2023 History of Present illness Narrative HPI Subjective Natalya Kincaid is a 32 y.o. female who presents for contraception counseling. Current contraception: abstinence. Periods are rare, due to previous use of Depo Provera. Dysmenorrhea: none. Cyclic symptoms include none. No intermenstrual bleeding, spotting, or discharge. The patient has no complaints today. 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 IF Yes , motivated to quit YES Pertinent past medical history: [employer] HPV vaccinated: no Menstrual History: No LMP recorded (lmp unknown). Patient has had an injection. The following portions of the patient's history were reviewed and updated as appropriate: allergies, current medications, past family history, past medical history, past social history, past surgical history, problem list, and medication reconciliation was completed including current medication and post discharge medication. Review of Systems Constitutional: Negative. Respiratory: Negative. Negative for chest tightness and shortness of breath. Cardiovascular: Negative. Negative for chest pain and palpitations. Gastrointestinal: Positive for diarrhea. Negative for constipation, nausea and vomiting. Genitourinary: Negative. Negative for menstrual problem and pelvic pain. Neurological: Negative. Psychiatric/Behavioral: Negative. Objective BP 94/60 Ht 160 cm (5' 3 ) Wt 54.7 kg (120 lb 9.6 oz) LMP (LMP Unknown) No BMI 21.36 kg/m Physical Exam Vitals and nursing note reviewed. Constitutional: Appearance: Normal appearance. Cardiovascular: Rate and Rhythm: Normal rate and regular rhythm. Pulses: Normal pulses. Heart sounds: Normal heart sounds. Pulmonary: Effort: Pulmonary effort is normal. Breath sounds: Normal breath sounds. Musculoskeletal: General: Normal range of motion. Skin: General: Skin is warm and dry. Neurological: Mental Status: She is alert and oriented to person, place, and time. Psychiatric: Mood and Affect: Mood normal. Speech: Speech normal. Behavior: Behavior normal. Thought Content: Thought content normal. Judgment: Judgment normal. Lab Review Urine test negative today Assessment / Plan Diagnoses and all orders for this visit: Encounter for initial prescription of injectable contraceptive - POCT , urine - medroxyPROGESTERone (DEPO-PROVERA) injection 150 mg General counseling and advice for contraceptive management 32 y.o. restarting Depo-Provera injections, no contraindications. Educational information provided. All questions answered. HPV vaccine is recommended between 9-45 yo. Can be received at [facility] or the health department. RTO for annual / pap (due now) or sooner as needed. TIESHA Brenner APRN-CNP Lisa M Franco, APRN-CNP 10/01/23 1220 [facility] Evaluation note Encounter Date Diagnosis Assessment Notes May, Contact with and (suspected) exposure to other viral communicable diseases (ICD-10 - Z20.828) May, Other Patient is a 32 yo female who present dot urgent care with complaints of cough, shortness of breath and wheezing for the past 3 days. Denies runny nose, congestion, sore throat, fevers, or chills. During assessment patient stated she was experiencing left chest pressure that was coming and going and made her feel short of breath and feel like her heart was racing. Patient stated she thought it was just asthma originally but came because of the chest pressure. Patient was referred to the ER for her chest pain. [email or web address] Other 12-11-2023 Evaluation note* Encounter Date Diagnosis Assessment Notes Treatment Notes Treatment Clinical Notes Apr, Sore throat (ICD-10 - J02.9) Apr, Acute pharyngitis due to other specified organisms (ICD-10 - J02.8) You were seen here today for your sore throat, swollen neck glands, pain with swallowing, fever, chills, abdominal pain and headache . You were tested for covid/flu/strep. You tested negative. Based on your symptoms and exam I am diagnosing you with acute bacterial pharyngitis I believe may be strep. You are being treated with amoxicillin- take the antibiotic as directed. Do not stop the medicaiton early. Rest. Take tylenol or motrin fo rfever or discomfort. Follow up with your primary care doctor if symptoms persist. Go to the ER if you develop chest pain, shortness of breath. Apr, Contact with and (suspected) exposure to covid-19 (ICD-10 - Z20.822) Apr, Other specified bacterial agents as the cause of diseases classified elsewhere (ICD-10 - B96.89) [email or web address] Other 07-26-2023 Evaluation note* Encounter Date Diagnosis Assessment Notes Treatment Notes Treatment Clinical Notes Nov, Dental decay (ICD-10 - K02.9) Dental pain home care material was printed Drink plenty fluids, get plenty of rest. Take the clindamycin as prescribed until gone. Take the ibuprofen as prescribed as needed for mild to moderate pain. For severe pain add 2 extra strength Tylenol to your ibuprofen dose. Follow-up with your dentist as soon as possible. Nov, Dentalgia (ICD-10 - K08.89) [email or web address] Other 02-13-2023 Evaluation note* Encounter Date Diagnosis Assessment Notes Treatment Notes Treatment Clinical Notes Jun, Mild intermittent asthma with exacerbation (ICD-10 - J45.21) Jun, Mild persistent asthma with acute exacerbation (ICD-10 - J45.31) [email or web address] Other 11-17-2022 Evaluation note* Encounter Date Diagnosis Assessment Notes Treatment Notes Treatment Clinical Notes Mar, Sore throat (ICD-10 - J02.9) Mar, Viral URI (ICD-10 - J06.9) Advised patient that COVID/Influenza A/B test and rapid Strep test was negative today. Advised patient that will treat as viral URI. Supportive care as directed, increase fluids and rest, Tylenol/Motrin as directed, rx of Bromfed and Flonase as directed, cool mist humidifier, throat lozenges. Discussed infection control practices such as good hand washing and mask wearing. Patient to follow up with PCP if symptoms persist or worsen despite treatment. Immediate eval for SOB, difficulty, chest pain, fevers that do not break with antipyretic or any other concerning symptoms as reviewed on patient education handout. Patient verbalizes understanding and is agreeable to treatment plan. Patient left in stable condition Mar, Contact with and (suspected) exposure to other viral communicable diseases (ICD-10 - Z20.828) [email or web address] Other 11-03-2022 Evaluation note* Encounter Date Diagnosis Assessment Notes Treatment Notes Treatment Clinical Notes Mar, Strain of neck muscle, initial encounter (ICD-10 - S16.1XXA) Mar, Concussion without loss of consciousness, subsequent encounter (ICD-10 - S06.0X0D) 31 y.o. female seen today for a 2 wek follow up for concussion. She was increased on her Amitriptyline to 50mg at her last appointment. Her current SCAT score symptoms 22 and symptom severity is 89. Some of the severity and symptoms are being worsened due to her stress at job situation and mental health issues. She is going to follow up with psychiatry which will help if they can get this under control. He concussion symptoms on exam today is much improved. She will start PT and F/U as needed after PT if not resolved. [email or web address] Other 11-03-2022 Evaluation note* Encounter Date Diagnosis Assessment Notes Treatment Notes Treatment Clinical Notes Mar, Elevated random blood glucose level (ICD-10 - R73.09) Patient A1C is WNL Mar, Mild intermittent asthma with exacerbation (ICD-10 - J45.21) Take medications as directed with food. Complete all doses of steroids. Use inhaler or nebulizer at least 2-3 times per day for next 48 hours. Increase fluid intake. Follow up with primary care provider is recommended to discuss treatment plan changes to asthma. Seek emergency help if difficulty breathing develops [email or web address] Other 09-24-2022 Evaluation note* Encounter Date Diagnosis Assessment Notes Treatment Notes Treatment Clinical Notes Jan, Post concussion syndrome (ICD-10 - F07.81) Patient appears to have symptoms of post concussion symptoms - referral made to Dr. Marino Amaya. Start Portia 3 supplement as discussed. [email or web address] Other [id number] Telephone encounter Note* Telephone Encounter - Betsy Alejandra - 01/25/2022 11:33 AM EDT Unfortunately we do not have much before the end of the year. Urgent appointments are saved for walk-ins and cancer patient's only. I scheduled Ms. Medrano for March 14. Left voicemail asking her tocall back should appointment date/time not work for her. Thank you. [id number] Miscellaneous Notes* Telephone Encounter - Betsy Alejandra - 01/25/2022 11:33 AM EDT Unfortunately we do not have much before the end of the year. Urgent appointments are saved for walk-ins and cancer patient's only. I scheduled Ms. Medrano for March 14. Left voicemail asking her tocall back should appointment date/time not work for her. Thank you. * Telephone Encounter - Vernell Rodriguez - 01/24/2022 9:07 AM EDT Patient called in stating she has been throwing up this morning and will be unable to make her appointment today. Patient informed we are currently booking consultations into April, but patient said she cannot wait that long for her consultation as she booked this appointment back in September. Pleasecall patient o advise at [phone]. Thank you! documented in this [id number] Telephone encounter Note* Telephone Encounter - Vernell Rodriguez - 01/24/2022 9:07 AM EDT Patient called in stating she has been throwing up this morning and will be unable to make her appointment today. Patient informed we are currently booking consultations into April, but patient said she cannot wait that long for her consultation as she booked this appointment back in September. Pleasecall patient o advise at [phone]. Thank you! [id number] Evaluation note* Encounter Date Diagnosis Assessment Notes Treatment Notes Treatment Clinical Notes Nov, control counseling (ICD-10 - Z30.09) Discussed options and patient is agreeable with restarting Depo shot. test is negative. Nov, Mild persistent asthma with acute exacerbation (ICD-10 - J45.31) Take medications as directed with food. Complete all doses of steroids. Use inhaler or nebulizer at least 2-3 times per day for next 48 hours. Increase fluid intake. Follow up if symptoms persist. Seek emergency help if difficulty breathing develops [email or web address] Other 01-10-2022 Evaluation note* Encounter Date Diagnosis Assessment Notes Treatment Notes Treatment Clinical Notes May, Walking pneumonia (ICD-10 - J18.9) Take medications as directed. Rest and increase fluid intake. Take meds with food to prevent stomach upset. Use inhaler as needed for SOB. Follow up with primary care provider if symptoms do not improve with treatment plan, although it may take a few weeks for the cough to go away. Smoking increases risk of developing bronchitis. Smoking while sick will cause symptoms to worsen and it will take longer to get better [email or web address] Other 11-21-2021 Evaluation note* Encounter Date Diagnosis Assessment Notes Treatment Notes Treatment Clinical Notes Mar, Allergic contact dermatitis, unspecified trigger (ICD-10 - L23.9) Mar, Weight loss of more than 10% body weight (ICD-10 - R63.4) We will start with this bloodwotk and go from there. Mar, Nausea (ICD-10 - R11.0) [email or web address] Other 11-16-2021 Evaluation note* Encounter Date Diagnosis Assessment Notes Treatment Notes Treatment Clinical Notes Mar, Herpes exposure (ICD-10 - Z20.828) [facility] [employer] Other 10-05-2021 Evaluation note* Encounter Date Diagnosis Assessment Notes Treatment Notes Treatment Clinical Notes Feb, Infected tooth (ICD-10 - K04.7) Take medications as directed.Highly encourage patient to contact dentist JOSI for further treatment of infection. Do not take OTC medications like ibuprofen with prescriptions [email or web address] Other Evaluation noteNo InformationNort 3225 films Other Evaluation note* Diagnosis Onset Date Resolution Status Carpal tunnel syndrome of left wrist acute Strep pharyngitis acute [facility] Work Phone: Evojdation note* Diagnosis Encounter for initial prescription of injectable contraceptive- Primary General counseling and advice for contraceptive management [facility] Diagnosis Well woman exam with routine gynecological exam- Primary Routine gynecological examination Pap smear, as part of routine gynecological examination Screening for malignant neoplasm of the cervix Standardized adult depression screening tool completed History of abnormal cervical Pap smear documented [facility]* Diagnosis Onset Date Resolution Status Admit Date Influenza A acute June 10:32am [facility] Work Phone: Evaluation note* Diagnosis General counselling and advice on contraception- Primary Anxiety and depression Bipolar 1 disorder ([facility]) Encounter for initial prescription of contraceptive pills [facility] N[facility]ative - Reported* Type Description Date Medical History Depression Medical History Gestational diabetes Medical History Anxiety Hospitalization History child x2 [email or web address] Other Instructions* Attachments The following attachments cannot be sent through Care Everywhere. * Medroxyprogesterone, ADULT (Irish) [facility] Attachments The following attachments cannot be sent through Care Everywhere. * Control Options (Irish) * Vaping (Irish) [facility]* Attachments The following attachments cannot be sent through Care Everywhere. * Norethindrone, ADULT (Irish) * Stress (Irish) [facility] HospitalReason for referral (narrative)* Consultation (Urgent) - Pending Review Specialty Diagnoses / Procedures Referred By Trenton watt Referred To Contact Behavioral Health Diagnoses Anxiety and depression Bipolar 1 disorder ([facility]) Quin Rice, [address] [place] [address] [facility] [address] [place] [address] Referral ID Status Reason Start Date Expiration Date Visits Requested Visits Authorized Pending Review Specialty Services Required 12/17/2023 12/16/2024 1 1 [facility] Summary Purpose Family History No Family History Records FoundNo Family History Records FoundNo Family History Records FoundNo Family History Records FoundNo Family History Records Found Advance Directives Advance Directive Response Recorded Date/ Time Advance Directives No September 29 4 5:25pm Advance Directive Response Recorded Date/ Time Advance Directives No September 29 4:25pm Chief Complaint and Reason for Visit Chief Complaint Sore throat, bodyach es Reason for Visit Carpal tunnel syndro me of left wrist Strep pharyngitis Chief Complaint Admit Date cough, congestion, exposure to flu Febru eddie 2024 10:32am Reason for Visit Admit Date Influenza A June 26, 2024 10:32am Additional Source Comments INFORMATION SOURCE (unrecogn ized section and content) DATE CREATED AUTHOR 06/03/2021 [facility] DATE CREATED AUTHOR AUTHOR'S ORGANIZ ATION 02/08/2022 [facility] [employer] [facility] [employer] [facility] DATE CREATED AUTHOR AUTHOR'S ORGANIZ ATION 07/04/2022 [facility] DATE CREATED AUTHOR AUTHOR'S ORGANIZ ATION 11/11/2023 [facility] DATE CREATED AUTHOR AUTHOR'S ORGANIZ ATION 12/19/2023 [facility] REASON FOR VISIT (unrecogniz ed section and content) Reason Comments Gynecologic Exam Reason Comments Contraception Pt desires to switch to pill from Depo Care Teams (unrecognized sec tion and content) Team Status: Active Member Role Status Dates PHYSICIAN NO FAMILY Primary Care Provider Active Team Status: Inactive Member Role Status Dates PHYSICIAN NO FAMILY Primary Care Provider Active Start: September 30, 2023 End: September 30, 2023 Ashley Newsome APRN Attending Provider Active Start: September 30, 2023 End: September 30, 2023 Agricultural Aircraft [employer] Relationship Specialty Start Date End Date Ofelia Magana APRN-FNP [address] [place] [address] PCP - General Family Medicine 01/18/21 Team Status: Inactive Member Role Status Dates PHYSICIAN NO FAMILY Primary Care Provider Active Start: June 26, 2024 End: June 26, 2024 Ashley Newsome APRN Attending Provider Active Start: June 26, 2024 End: June 26, 2024 Agricultural Aircraft [employer] Relationship Specialty Start Date End Date Ofelia Magana APRN-FNP [address] [place] [address] PCP - General Family Medicine 01/18/21 Goals (unrecognized section and content) Goals may be documented in a n alternate section FOR RECORDS PERTAINING TO PATIENTS WHO ARE OR HAVE BEEN ENROLLED IN A CHEMICAL DEPENDENCY/SUBSTANCEABUSE PROGRAM, SOME INFORMATION MAY BE OMITTED. This clinical summary was aggregated from multiple sources. Caution should be exercised in using it in the provision of clinical care. This summary normalizes information from multiple sources, and as a consequence, information in this document may materially change the coding, format and clinical context of patient data. In addition, data may be omitted in some cases. CLINICAL DECISIONS SHOULD BE BASED ON THE PRIMARY CLINICAL RECORDS. [facility] [employer] provides no warranty or guarantee of the accuracy or completeness of information in this document.
--- NOTE | 2024-08-30 17:29 | ECG_ITS ---
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 Measurements Intervals [place] Rate: 76 P: 76 MO: 144 QRS: 75 QRSD: 82 T: 69 QT: 376 QTc: 406 Interpretive Statements 1100 Sinus rhythm 2420 RSR (QR) in lead V1/V2, consistent with right ventricular conduction delay 9130 borderline ECG Compared to ECG 06/02/2023 19:18:46 Sinus arrhythmia no longer present Electronically Signed On 08-30-2024 21:49:07 EDT by CECELIA LOPEZ M.D.
--- NOTE | 2024-08-30 17:31 | ED_ITS ---
HPI HPI - General Adult General Chief complaint: Arrhythmia/Palpitations Stated complaint: Arrhythmia/Palpitations Time Seen by Provider: 08/30/24 17:15 Source: patient Mode of arrival: walk-in History of Present Illness HPI narrative: Patient is a 33-year-old female presents to the ER with concerns of palpitations. Patient states for the past 2 months she has had a pounding sensation in her chest that comes and goes like someone beating a drum. She occasionally will get discomfort with it and then some shortness of breath before it goes away. It has lasted several minutes to several hours but typically fully resolves. She has a known history of anxiety and had a disagreement about medication treatment through the [facility]. Patient states since that time she has had diarrhea and abdominal discomfort at times. Patient states anytime she eats she has a loose watery stool. 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 Patient states she cut back on caffeine consumption and her vaping. She denies any drug use. 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 She denies being sexually active is coming off the Depo shot. She denies any recent surgeries or procedures she has no personal or family history of PE or DVT. Patient cooperative at bedside. Patient states she has not had any labs done since her last ER visit in May with similar symptoms. Location: Reports chest and abdomen Radiation: Reports non-radiation Severity: moderate Pain Consistency: Reports intermittent Relieving factors: Reports none Exacerbating factors: Reports none Associated symptoms: Reports denies other symptoms; Denies fever/chills Treatments prior to arrival: Reports none Related Data Home Medications ?Medication ?Instructions ?Recorded ?Confirmed albuterol sulfate 90 mcg/actuation 2 puff inhalation Q4H PRN 06/02/23 08/30/24 aerosol inhaler (Ventolin HFA) shortness of breath or wheezing hydroxyzine pamoate 50 mg capsule 50 mg PO Q6H PRN anxiety 06/02/23 08/30/24 Allergies Allergy/AdvReac Type Severity Reaction Status Date / Time No Known Drug Allergies Allergy Verified 06/02/23 19:15 Opioid HPI Opioid Management Most Recent Opioid Data: No Data to Display Review of Systems ROS Constitutional Denies: fever or chills Eyes Denies: change in vision or blurry vision Ears, nose, mouth, and throat Denies: throat pain or neck pain Cardiovascular Reports: chest pain and palpitations; Denies: edema, swelling of feet/ankles, lightheadedness, shortness of breath with exertion, shortness of breath when lying down or leg pain with exertion Respiratory Reports: shortness of breath (only with episodes of palpations. ); Denies: cough or wheezing Gastrointestinal Reports: abdominal pain and diarrhea; Denies: nausea Genitourinary Denies: painful urination or painful menstruation Musculoskeletal Denies: back pain or neck pain Integumentary/Breast Denies: rash, itching or changes in skin color Neurological Denies: headache Psychiatric Reports: anxiety Endocrine Denies: excessive urination Hematologic/Lymphatic Denies: easy bruising Allergic/Immunologic Denies: hives PFSH PFSH Social History Smoking status: Current every day smoker Little interest or pleasure in doing things: not at all Feeling down, depressed, or hopeless: not at all Exam Narrative Exam Narrative: Nurses notes and vital signs reviewed and patient is not hypoxic. General: The patient appears well and in no apparent distress. Patient is resting comfortably on cart. Skin: Warm, dry, no pallor noted. Head: Normocephalic, atraumatic Neck: Supple, trachea mid-line, no tenderness, no lymphadenopathy Eye: Pupils are equal, round and reactive to light, EOMI Ears, Nose, Mouth, and Throat: TM are clear, normal light reflex, oral mucosa i s moist, no posterior oropharynx erythema or hypertrophy, uvula is mid-line Cardiovascular: Regular Rate and Rhythm, no appreciable murmur supine or seated Respiratory: Patient is in no distress, no accessory muscle use, lungs are clear to auscultation, no wheezing, rales or rhonchi. Chest Wall: no tenderness Back: non-tender, no CVA tenderness Musculoskeletal: normal ROM, no tenderness, no swelling GI: Normal bowel sounds, mild tenderness right upper quadrant on deep palpation. No masses appreciated. No rebound, guarding, or rigidity noted. Neurological: A&O x4 Psychiatric: Cooperative Constitutional Vital Signs, click to edit/add: Last Vital Signs Temp 98.8 F 08/30/24 17:14 Pulse 87 08/30/24 17:14 Resp 22 H 08/30/24 17:14 BP 124/71 08/30/24 17:14 Pulse Ox 100 08/30/24 17:14 O2 Del Method Room Air 08/30/24 17:14 Course Vital Signs Vital signs: Vital Signs Temperature 98.8 F 08/30/24 17:14 Pulse Rate 87 08/30/24 17:14 Respiratory Rate 22 H 08/30/24 17:14 Blood Pressure 124/71 08/30/24 17:14 Pulse Oximetry 100 08/30/24 17:14 Oxygen Delivery Method Room Air 08/30/24 17:14 Temperature 98.8 F 08/30/24 17:14 Pulse Rate 87 08/30/24 17:14 Respiratory Rate 22 H 08/30/24 17:14 Blood Pressure 124/71 08/30/24 17:14 Pulse Oximetry 100 08/30/24 17:14 Oxygen Delivery Method Room Air 08/30/24 17:14 Medical Decision Making MDM Narrative Medical decision making narrative: Reviewed prior ER note patient noted to be hypokalemic. She has not had this rechecked since her prior ER visit. Patient admits to diarrhea daily and attributed it to taking a medication for her anxiety previously. She currently takes Vistaril as needed at bedtime., She notes even with this medication the symptoms can still occur. She denies any long travels flights or surgeries. Pt notes she is coming of Depo use, Periods are irregular. Wells PE criteria is negative. Vitals are stable. Reviewed patient's chest x-ray and labs with the patient at bedside. She is afebrile nontoxic and nonhypoxic. We discussed her need for outpatient follow- up as she had a very similar visit here in May with continued symptoms. We discussed outpatient testing that may be of value and she may practice a gluten- free diet to see if this helps with her diarrhea and stomach symptoms in the interim. Patient verbalized understanding was thankful and no further concerns or questions The patient is to followup with primary care physician in next 2-3 days or to return to the emergency department should any of the signs or symptoms worsen or new symptoms develop. Patient had questions answered. The patient agrees with the following Diagnosis and Treatment plan and the patient will be discharged home. Lab Data Lab results reviewed: Yes I reviewed the patient's lab results Labs: Lab Results 08/30/24 08/30/24 Range/Units 17:36 17:46 WBC 5.0 (4.0-11.0) 10^3/uL RBC 4.21 (4.20-5.40) 10^6/uL Hgb 13.0 (12.0-16.0) g/dL Hct 38.1 (36.0-48.0) % MCV 90.5 (81.0-99.0) fL MCH 30.9 (26.7-34.0) pg MCHC 34.1 (29.9-35.2) g/dL RDW 12.4 (11.0-15.0) % Plt Count 273 (150-450) 10^3/uL MPV 11.4 (9.5-13.5) fL Neut % (Auto) 50.5 (43.0-75.0) % Lymph % (Auto) 31.7 (20.5-60.0) % [place] % (Auto) 12.4 H (1.7-12.0) % Eos % (Auto) 4.6 (0.9-7.0) % Baso % (Auto) 0.6 (0.2-2.0) % Neut # (Auto) 2.5 (1.4-6.5) 10^3/uL Lymph # (Auto) 1.6 (1.2-3.8) 10^3/uL [place] # (Auto) 0.6 (0.3-0.8) 10^3/uL Eos # (Auto) 0.2 (0.0-0.7) 10^3/uL Baso # (Auto) 0.0 (0.0-0.1) 10^3/uL Abs Immat Gran (auto) 0.01 (0.00-0.03) 10^3/uL Imm/Tot Granulo (auto) 0.2 (0.0-0.5) % Sodium 138 (136-145) mmol/L Potassium 3.4 L (3.5-5.1) mmol/L Chloride 102 (98-107) mmol/L Carbon Dioxide 28.2 (21.0-32.0) mmol/L Anion Gap 11.2 BUN 3.0 L (7.0-18.0) mg/dL Creatinine 0.62 (0.55-1.02) mg/dL Est GFR ( Amer) >60 (>=60 mL/min/1.73m^2) Est GFR (Non-Af Amer) >60 (>=60 mL/min/1.73m^2) BUN/Creatinine Ratio 4.8 Glucose 119 H (74-106) mg/dL Calcium 8.6 (8.5-10.1) mg/dL Total Bilirubin 0.3 (0.2-1.0) mg/dL AST 14 L (15-37) U/L ALT 12 L (14-59) U/L Alkaline Phosphatase 59 (46-116) U/L Troponin I High Sens <4.0 L (4.0-51.3) pg/mL Total Protein 6.7 (6.4-8.2) g/dL Albumin 3.8 (3.4-5.0) g/dL Globulin 2.9 g/dL Albumin/Globulin Ratio 1.3 Lipase 24.0 (16.0-77.0) U/L TSH & Free T4 Interp 1.532 (0.358-3.740) uIU/mL Serum HCG, Qual Negative (NEGATIVE) Urine Color Lt. yellow (YELLOW) Urine Clarity Clear (CLEAR) Urine pH 6.0 (5.0-9.0) Ur Specific [place] 1.010 (1.005-1.025) Urine Protein Negative (NEG/TRACE) mg/dL Urine Glucose (UA) Negative (NEGATIVE) mg/dL Urine Ketones Negative (NEGATIVE) mg/dL Urine Occult Blood Negative (NEGATIVE) Urine Nitrite Negative (NEGATIVE) Urine Bilirubin Negative (NEGATIVE) Urine Urobilinogen 0.2 (0.2-1.0) EU/dL Ur Leukocyte Esterase Negative (NEGATIVE) Urine RBC None seen (0-2) #/HPF Urine WBC None seen (NONE SEEN) #/HPF Ur Squamous Epith Cells Moderate A (NONE/RARE) #/LPF Urine Crystals None seen (None Seen) #/HPF Urine Bacteria Small A (NONE SEEN) #/HPF Urine Casts None seen (NONE SEEN) #/LPF Urine Mucus Trace A (NONE SEEN) Ur Culture Indicated? Yes-[facility] Imaging Data Chest x-ray: Attestation: I have reviewed the pertinent imaging results. Radiologist's impression: One-view portable chest x-ray no consolidation no pulmonary edema pleural effusion or pneumothorax : impression: no acute process ECG Data Attestation: I personally reviewed and interpreted this ECG as follows: Interpretation: EKG interpretation: Emergency Department physician interpretation, normal sinus rhythm 76 BPM, no ectopy, no ST segment elevation, normal axis. Discharge Plan Discharge Chief Complaint: Arrhythmia/Palpitations Clinical Impression: Hypokalemia, Palpitations, Diarrhea Patient Disposition: Home, Self-Care Time of Disposition Decision: 18:56 Condition: Good Prescriptions / Home Meds: No Action hydroxyzine pamoate 50 mg capsule 50 mg PO Q6H PRN (Reason: anxiety) albuterol sulfate [Ventolin HFA] 90 mcg/actuation HFA aerosol inhaler 2 puff INHALATION Q4H PRN (Reason: shortness of breath or wheezing) Print Language: French Instructions: Heart Palpitations (ED), Gluten-Free Diet (ED), Potassium Content of Foods List (ED) Referrals: [facility] [Primary Care Provider] - 1 week Kye Martinez MD [Physician] - As soon as possible
[2024-08-30] MEDS: 0.9 % SODIUM CHLORIDE 1,000 ML 999 ML IV (17:50)
[2024-08-30 18:10] LABS: Basophils Percent Auto 0.6 % (0.2-2.0); Eosinophils Absolute Auto 0.2 10^3/uL (0.0-0.7); Eosinophils Percent Auto 4.6 % (0.9-7.0); Hematocrit 38.1 % (36.0-48.0); Immature Granulocytes Abs Auto 0.01 10^3/uL (0.00-0.03); Immature Granulocytes Pct Auto 0.2 % (0.0-0.5); Lymphocytes Absolute Auto 1.6 10^3/uL (1.2-3.8); Lymphocytes Percent Auto 31.7 % (20.5-60.0); Mean Corpuscular HGB Conc 34.1 g/dL (29.9-35.2); Mean Corpuscular Hemoglobin 30.9 pg (26.7-34.0); Mean Corpuscular Volume 90.5 fL (81.0-99.0); Mean Platelet Volume 11.4 fL (9.5-13.5); Monocytes Absolute Auto 0.6 10^3/uL (0.3-0.8); Monocytes Percent Auto 12.4 % (1.7-12.0); Neutrophils Absolute Auto 2.5 10^3/uL (1.4-6.5); Neutrophils Percent Auto 50.5 % (43.0-75.0); Platelet Count 273 10^3/uL (150-450); Red Blood Count 4.21 10^6/uL (4.20-5.40); Red Cell Distribution Width 12.4 % (11.0-15.0)
[2024-08-30 18:11] LABS: Bilirubin Urine NEGATIVE (NEGATIVE); Blood Urine NEGATIVE (NEGATIVE); Clarity Urine CLEAR (CLEAR); Color Urine LT. YELLOW (YELLOW); Glucose Urine UA NEGATIVE (NEGATIVE); Ketones Urine NEGATIVE (NEGATIVE); Leukocyte Esterase Urine NEGATIVE (NEGATIVE); Nitrite Urine NEGATIVE (NEGATIVE); Protein Urine NEGATIVE (NEG/TRACE); Urobilinogen Urine 0.2 EU/dL (0.2-1.0)
[2024-08-30 18:18] LABS: Bacteria Urine SMALL #/HPF (NONE SEEN); Mucus Urine TRACE (NONE SEEN); RBC Urine NONE SEEN #/HPF (0-2); WBC Urine NONE SEEN #/HPF (NONE SEEN)
[2024-08-30 18:19] LABS: Cast Seen? NONE SEEN #/LPF (NONE SEEN); Crystals Seen? None Seen #/HPF (None Seen); Squamous Epithelial Cell Urine MODERATE #/LPF (NONE/RARE); Urine Culture Indicated YES-FRMC
[2024-08-30 18:20] LABS: HCG Qualitative NEGATIVE (NEGATIVE); Internal Control Within Normal Limits
[2024-08-30 18:28] LABS: Alanine Aminotransferase 12 U/L (14-59); Albumin Globulin Ratio 1.3; Albumin Level 3.8 g/dL (3.4-5.0); Alkaline Phosphatase 59 U/L (46-116); Anion Gap 11.2; Aspartate Amino Transferase 14 U/L (15-37); BUN Creatinine Ratio 4.8; Bilirubin Total 0.3 mg/dL (0.2-1.0); Calcium 8.6 mg/dL (8.5-10.1); Carbon Dioxide 28.2 mmol/L (21.0-32.0); Chloride 102 mmol/L (98-107); Estimated GFR (African America >60 (>=60 mL/min/1.73m^2); Estimated GFR (Non-African Ame >60 (>=60 mL/min/1.73m^2); Globulin 2.9 g/dL; Glucose 119 mg/dL (74-106); Potassium 3.4 mmol/L (3.5-5.1); Sodium 138 mmol/L (136-145); Total Protein 6.7 g/dL (6.4-8.2); Troponin I High Sensitivity <4.0 pg/mL (4.0-51.3)
[2024-08-30 18:33] LABS: TSH W/ REFLEX FT4 1.532 uIU/mL (0.358-3.740)
[2024-08-30] MEDS: POTASSIUM BICARBONATE/CIT 25 MEQ TABLET EFF PO (18:43)
== END 2024-08-30 19:12 | disposition home or self-care (01) ==
PROVIDERS: Personal Emergency Response Attendant; Emergency Provider Emergency Medicine
DX: R00.2 Palpitations (principal); E87.6 Hypokalemia; R19.7 Diarrhea, unspecified; I49.9 Cardiac arrhythmia, unspecified; F41.9 Anxiety disorder, unspecified; F17.290 Nicotine dependence, other tobacco product, uncomplicated
CPT/HCPCS: 36415; 71045; 80053; 81001; 83690; 84443; 84484; 84703; 85025; 87086; 93005; 99285

== ENCOUNTER 2025-04-26 07:33 | Outpatient (OUT) | payer OTHER, SELFPAY ==
--- OUTSIDE RECORDS SUMMARY | 2025-04-19 03:30 | XMS_ITS ---
Author Organization [facility] [place] Address [address] [place] [address] Care Team Providers Care Tax Accountant Name Role Phone Natalie Landaverde Primary Care Provider Allergies No Known Allergies Reason For Referral Reason palpitations Diagnosis 1 Palpitations (R00.2) Referral Organization 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-HEART PALPITATIONS Medications Medication SIG (Take, Route, Frequency, Duration) Notes Start Date End Date Status Propranolol HCl 10 MG 1 tablet on an empty stoma ch Orally every 12 hrs ActivehydrOXYzine Pamoate 25 MG1 capsule at bedtime as needed Orally Once a day VjoavdT38 5000 MCGas directed SublingualActiveAbilify 2 MG1 tablet Orally Once a day; Duration: 30 days5ActiveSymbicort 80-4.5 MCG/ACTas directed InhalationActiveAirsupra 90-80 MCG/ACT2 puffs as needed Inhalation Six times a dayActive Social History Tobacco Use: Social History Observation Description Date Details (start date - stop date) Current Smoker NA - NA Tobacco Control (Standard) Question Answer Notes Tobacco use: Current smoker Additional Findings: Tobacco xpmin-pfbjoapmxDMMRP-N (Standard) Question Answer Notes Did you have a drink containing alcohol in the p ast year? Yes How often did you have a drink containing alcohol in the past year?Never (0 point)How many drinks did you have on a typical day when you were drinking in the past year?1 or 2 drinks (0 point)How often did you have six or more drinks on one occasion in the past year?Less than monthly (1 point)Points1 InterpretationNegative Problems Problem Type SNOMED Code ICD Code Onset Dates Problem Status W/U Status Risk Notes Problem Anxiety (08660437) Anxiety (F41.9) ActiveconfirmedProblemBipolar disorder (60099095)Bipolar disorder (F31.9)Active confirmed Vital Signs Weight 108.8 lbs 04/19/2025 Height 63 in 04/19/2025 Blood pressure systolic 110 mm Hg 04/19/20 25 Blood pressure diastolic 64 mm Hg 025 Heart Rate 81 /min 04/19/2025 BMI 19.27 kg/m2 04/19/2025 Procedures Procedure Date Ordered Date Performed Result Body Sit e Holter Monitor - 3 days up to 14 days 04/19/2025 N/A Encounters Encounter Location Date Provider Diagnosis [facility] [address] [place] [address] 04/19/2025 Natalie Saima Palpitations R00.2 ; Anxiety F41.9 ; Bipolar disorder F31.9 and Weight loss R63.4 Assessments Encounter Date Diagnosis (ICD Code) Assessment Notes Treatment Notes Treatment Clinical Notes Section Notes 04/19/2025 Palpitations (ICD-10 - R00.2) requesting cardiology referral on propranolol, has not helped 04/19/2025nxiety (ICD-10 - F41.9)taking hydroxyzine BID5Bipolar disorder (ICD-10 - F31.9) fu one month consider counseling, psych ; has seen in past 04/19/2025Weight loss (ICD-10 - R63.4) continue to monitor increase protein wt has stabilized last 3m she states stopped several meds that could have caused wt gain Plan Of Treatment Medication Medication Name Sig Start Date Stop Date Notes Abilify 2 MG 1 tablet Orally Once a day; Duration: 30 days 04/19/2025 Treatment Notes Assessment Notes Palpitations requesting cardiology referral on propranolol, has not helped Anxiety taking hydroxyzine B ID Bipolar disorder fu one month consider counseling, psych ; has seen in past Weight loss continue to monitor increase protein wt has stabilized last 3m she states stopped several meds that could have caused wt gain Pending Test Test Name Order Date Holter Monitor - 3 days up to 14 days Referrals Referral Date Details 04/19/2025 04/19/2025, Harley avila Next Appt Details Follow Up: mikala,4 Weeks, Reas on: Provider Name:Natalie gastelum, 05/17/2025 08:30:00 AM, [address] [facility], [place], [address], Progress Notes * MAYNORHARRISON MACKENZIESUELLENOB:1990 (34 yo F)Acc No.[id number]:04/19/2025 New Patient Patient: DALIA BRANDT :?Natalie Kohlimer ([facility]), CNPDOB:1990 ???Age:34 Y???Sex:FemaleDate:04/19/2025Phone:[phone]:[address] [place] [address] [address], [facility]Izgyx In:08:29 AM ESTCheck Out:09:07 AM EST Subjective: * Chief Complaints: * 1 . 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 * HPI: ???General:? heart palpitations getting worse skipping , racing? worse at night when lay down Echo - tricuspid valve regurg, 24 Holter monitor also concerned about wt loss 30 lbs stopped some psych meds and depo [facility] for labs recently echo anxiety and bipolar hx ovarian cysts, sees OBGYN. ???Depression Screening:?PHQ-9?Little interest or pleasure in doing things Several days ?Feeling down, depressed, or hopeless?Not at all ?Trouble falling or staying asleep, or sleeping too much?Not at all ?Feeling tired or having little energy?Several days ?Poor appetite or overeating?Not at all ?Feeling bad about yourself or that you are a failure, or have let yourself or your family down?Not at all ?Trouble concentrating on things, such as reading the newspaper or watching television?Not at all ?Moving or speaking so slowly that other people could have noticed; or the opposite, being so fidgety or restless that you have been moving arounda lot more than usual?Not at all ?Thoughts that you would be better off orof hurting yourself in some way?Not at all ?Total Score?2 ?Interpretation?Minimal Depression * ROS: ???General/Constitutional:?Anxiety?admits.?Depression?admits also dx with bipolar .?Fever?denies.?Headache?denies.?Weight loss?denies.?Ophthalmologic:?Discharge?denies.?Eye Pain?denies.?Itching and redness?denies.?ENT:?Nasal discharge?denies.?Nasal congestion?denies. Sore throat?denies.?Cardiovascular:?Patient complaining of?heart palpitations, worse at night. Chest tightness/ heavy pressure?some pressure at times.?Rapid heart rate?denies. ?Swelling of extremities?denies.?Chest pain?denies.?Respiratory:?Productive cough?denies.?Chest pain?denies.?Cough?denies.?Shortness of breath?denies.?Wheezing?denies.?Gastrointestinal:?Abdominal pain?denies.?Constipation?denies.?Decreased appetite?denies.?Diarrhea?denies.?Nausea?denies.?Vomiting denies.?Genitourinary:?Urinary incontinence?denies.?Painful urination?denies.?Musculoskeletal:?Back pain?denies.?Neck pain?denies.?Muscle aches?denies.?Skin:?Rash?denies.?Skin lesion(s)?denies.? * Active Problem List F31.9 Bipolar disorder Modified On:04/19/2025W/U Status:fgkeauacgQ83.9Anxiety Modified On:04/19/2025/U Status:confirmed * Medical History: A sthma, Bipolar disorder. * Family History: F ather: alive. M other: alive. B rother(s): alive. S ister(s): alive. S on(s): alive. D jett(s): alive, asthma. P aternal Grandfather: diagnosed with Hypertension, Heart Disease. 1 brother(s) , 1 sister(s) . 1 son(s) , 2 daughter(s) . . * Social History: ???Tobacco Use:?Tobacco Control (Standard)?Tobacco use:?Current smoker ?Additional Findings: Tobacco user?e-cigarette ???Drug/Alcohol:?AUDIT-C (Standard)?Did you have a drink containing alcohol in the past year??Yes ?How often did you have a drink containing alcohol in the past year?? Never (0 point) ?How many drinks did you have on a typical daywhen you were drinking in the past year??1 or 2 drinks (0 point) ?How often did you have six or more drinks on one occasion in the past year??Less than monthly (1 point) ?Points?1 ?Interpretation?Negative * Medications: T aking Airsupra(Albuterol-Budesonide) 90-80 MCG/ACT Aerosol 2 puffs as needed Inhalation Six times a day , Taking B12 5000 MCG Tablet Sublingual as directed Sublingual , Taking hydrOXYzine Pamoate 25 MG Capsule 1 capsule at bedtime as needed Orally Once a day , Taking Propranolol HCl 10 MG Tablet 1 tablet on an empty stomach Orally every 12 hrs , Taking Symbicort(Budesonide-Formoterol Fumarate) 80-4.5 MCG/ACT Aerosol as directed Inhalation , Medication List reviewed and reconciled with the patient * Allergies: N .K.D.A. Objective: * Vitals: W t:108.8lbs, Ht: 63 in, BP:110/64mm Hg, HR:81/min, BMI:19.27Index, Ht-cm: 160.02 cm, Wt-k.35 kg. * Examination: ???General Examinations: ?GENERAL APPEARANCE:?alert and oriented,?in no acute distress.?EYES:?conjunctiva normal, sclera non-icteric.?NOSE:?normal external appearance.?LUNGS:?clear to auscultation bilaterally.?CARDIO:?regular rate and rhythm, S1, S2 normal.?MUSCULOSKELETAL:?..., Gait and station normal.?SKIN:?warm and dry.? Assessment: * Assessment: 1.?Palpitations - R00.2 (Primary)???2.?Anxiety - F41.9???3. Bipolar disorder - F31.9???4.?Weight loss - R63.4??? Plan: * Treatment: ?Procedure: Holter Monitor - 3 days up to 14 days* 7 day Notes: requesting cardiology referral on propranolol, has not helped? Referral To:Harley Ennis??Cardiology ?Reason:palpitations 2.?Anxiety? Notes: taking hydroxyzine BID??3.?Bipolar disorder? Start Abilify Tablet, 2 MG, 1 tablet, Orally, Once a day, 30 days, 30 Tablet, Refills 1.?? Notes: fu one month consider counseling, psych ; has seen in past??4.?Weight loss? Notes: continue to monitor increase protein wt has stabilized last 3m she states stopped several meds that could have caused wt gain?? * Preventive Medicine: ??Screenings/Counseling:?TOBACCO ACTION PLAN?Patient counselled on the dangers of tobacco use and urged to quit.?. ?BMI ACTION PLAN?Below Normal BMI Follow-up?Dietary management education, guidance, and counseling * Follow Up: p rn,4 Weeks * * Electronically signed by Natalie Landaverde , OUTSOLE CEMENTER MACHINE, TECHNICAL TRAINING MANAGER.MULTIMEDIA EDUCATIONAL SPECIALIST.[id number] on 04/21/2025 at 01:34 PM ESTSign off status: CompletedVisit Status:?CHK (Check Out) true * Provider: Val Landaverde ([facility]), MULTIMEDIA EDUCATIONAL SPECIALIST Date: 1 06/20/2024 Generated for Printing/Faxing/eTransmitting on:?04/26/2025 07:38 AM EST History and Physical Notes * HPI (History of Present Illness) CategorySub-CategoryDetailNotesCategory NotesDepression ScreeningPHQ-9Little interest or pleasure in doing things: Several daysFeeling down, depressed, or hopeless: Not at allTrouble falling or staying asleep, or sleeping too much: Not at allFeeling tired or having little energy: Several daysPoor appetite or overeating: Not at allFeeling bad about yourself or that you are a failure, or have let yourself or your family down: Notat allTrouble concentrating on things, such as reading the newspaper or watching television: Not at allMoving or speaking so slowly that other people could have noticed; or the opposite, being so fidgety or restless that you have been moving around a lot more than usual: Not at allThoughts that you would be better off or of hurting yourself in some way: Not at allTotal Score: 2Interpretation: Minimal DepressionGeneral heart palpitations getting worse skipping , racing worse at night when lay down Echo - tricuspid valve regurg, 24 Holter monitor also concerned about wt loss 30 lbs stopped some psych meds and depo [facility] for labs recently echo anxiety and bipolar hx ovarian cysts, sees OBGYN Examination CategorySub-CategoryDetailNotesCategory NotesGeneral ExaminationsGENERAL APPEARANCE:alert and oriented, in no acute distressEYES:conjunctiva normal, sclera non-ictericEARS:NOSE:normal external appearanceTHROAT:CARDIO:regular rate and rhythm, S1, S2 normalLUNGS:clear to auscultation bilaterallyABDOMEN:SKIN: warm and dryBACK:MUSCULOSKELETAL:..., Gait and station normalLYMPH NODES: Consultation Request Notes Referral Date Referring Provider Referred Provider Not 04/19/2025 Natalie Landaverde George palpitat ions
--- OUTSIDE RECORDS SUMMARY | 2025-04-26 07:38 | XMS_ITS | Clinical Summary ---
Author Organization [facility] Address [address] [place] [address] Care Team Providers Care Pattern Developer Name Role Phone Unavailable Primary Care Provider Unavailabl e Social History Tobacco UseTypesPacks/DayYears UsedDateSmoking Tobacco: Never Assessed CommentsUnknownSex and Gender InformationValueDate RecordedSex Assigned at Not on fileLegal AqnNzzdff49/12/2025 12:29 PM EDTGender IdentityNot on file Sexual OrientationNot on file Plan of Treatment DateTypeDepartmentCare Team (Latest Contact Info)Hqvsvgianos39/31/2025 9:00 AM ESTOffice Visit [facility] [address] [place] [address] Harley Ennis MD [address] [facility] [address] [facility] [place] [phone] Health MaintenanceDue DateLast DoneCommentsDepression Tvgmhohsl88/04/2003 Varicella Vaccines (1 of 2 - 13+ 2-dose series)12/14/2003Hepatitis B Vaccines (1 of 3 - 19+ 3-dose series)2009Pap Smear12/14/2011dult Asufjmu2112/13/2012HPV Vaccines (1 - 3-dose SCDM series)2017Cervical Cancer Tjmxjbegx54/04/2021 HPV/Znajpj2712/13/2020Influenza Vaccine (#1)2025Zoster Vaccines (1 of 2) 2040HIB VaccinesAged OutNo longer eligible based on patient's age to complete this topicIPV VaccinesAged OutNo longer eligible based on patient's age to complete this topicMeningococcal B VaccineAged OutNo longer eligible based on patient's age to complete this topicMeningococcal VaccineAged OutNo longer eligible based on patient's age to complete this topicPneumococcal Vaccine: Pediatrics (0 to 5 Years) and At-Risk Patients (6 to 64 Years)Aged OutNo longer eligible based on patient's age to complete this topicRotavirus VaccinesAged Out No longer eligible based on patient's age to complete this topic Insurance
--- OUTSIDE RECORDS SUMMARY | 2025-04-26 07:38 | XMS_ITS | Patient Health Record ---
Author Organization [facility] in [place] Address [address] [place] [address] Care Team Providers Care Technician'S Helper Name Role Phone Natalie Landaverde Primary Care Provider [phone] Allergies No Known Allergies Reason For Referral Reason palpitations Diagnosis 1 Palpitations (R00.2) Referral Organization [facility] Referring Provider First Name Natalie Referring Provider Last Name Saima Referring Provider [facility]erred Provider Harley Ennis Referred Provider Specialty Cardiology Referral Priority Routine Medications Medication SIG (Take, Route, Frequency, Duration) Notes Start Date End Date Status Propranolol HCl 10 MG 1 tablet on an empty stoma ch Orally every 12 hrs ActivehydrOXYzine Pamoate 25 MG1 capsule at bedtime as needed Orally Once a day MvznxqZ85 5000 MCGas directed SublingualActiveAirsupra 90-80 MCG/ACT2 puffs as needed Inhalation Six times a dayActiveAbilify 2 MG1 tablet Orally Once a day; Duration: 30 days5ActiveSymbicort 80-4.5 MCG/ACTas directed Inhalation Active Social History Tobacco Use: Social History Observation Description Date Details (start date - stop date) Current Smoker NA - NA Tobacco Control (Standard) Question Answer Notes Tobacco use: Current smoker Additional Findings: Tobacco ujnsc-rxotahpikGCSAT-K (Standard) Question Answer Notes Did you have [...] Status W/U Status Risk Notes Problem Anxiety (26757172) Anxiety (F41.9) ActiveconfirmedProblemBipolar disorder (81718505)Bipolar disorder (F31.9)Active confirmed Vital Signs Heart Rate 81 /min 04/19/2025 Blood pressure yvdqjamko65 mm Hg04/19/20253699Xhsfdu82 in04/19/2025lood pressure ecxrzuhu865 mm Hg04/19/20253827Sipfsz264.8 lbs106/20/2024BMI19.27 kg/m204/19/2025 Procedures Procedure Date Ordered Date Performed Result Body Sit e Holter Monitor - 3 days up to 14 days 04/19/2025 N/A Encounters Encounter Location Date Provider Diagnosis [facility] [address] [place] [address] 04/19/2025 Natalie Landaverde Palpitations R00.2 ; Anxiety F41.9 ; Bipolar disorder F31.9 and Weight loss R63.4 [facility] [address] [place] [address] 04/19/2025 Natalie Landaverde Assessments Encounter Date Diagnosis (ICD Code) Assessment Notes Treatment Notes Treatment Clinical Notes Section Notes 04/19/2025 Palpitations (ICD-10 - R00.2) requesting cardiology referral on propranolol, has not helped 04/19/2025nxiety (ICD-10 - F41.9)taking hydroxyzine BID04/19/2025ipolar disorder (ICD-10 - F31.9) fu one month consider counseling, psych ; has seen in past 04/19/2025Weight loss (ICD-10 - R63.4) continue to monitor increase protein wt has stabilized last 3m she states stopped several meds that could have caused wt gain Plan Of Treatment Pending Test Test Name Order Date Holter Monitor - 3 days up to 14 days Next Appt Details Provider Name:Natalie gastelum, 05/17/2025 08:30:00 AM, [address] [place], [address], Insurance Providers Payer Name Payer Address Payer Phone Subscriber Number Group Number Insured Name Patient Relationship to Insured Coverage Start Date Coverage End Date [employer] [place] [employer] [address] [place] [phone] [id number] CANDIDA AKHTARelf - patient is the insured Medical (General) History Medical History History ICD Code Asthma J45.909 Bipolar disorder F31.9
--- OUTSIDE RECORDS SUMMARY | 2025-04-26 07:39 | XMS_ITS | Clinical Summary ---
Author Organization [facility] Address [id number] [place] [address] Care Team Providers Care Plant Control Operator Name Role Phone Maya Ramirez ROLLER SETTER-INCLINED RAILWAY OPERATOR Primary Care Provi carlos enrique Allergies Active AllergyReactionsCriticalityNoted DateCommentsShellfish DerivedHives,Rash High01/18/2021 Medications MedicationSigDispense QuantityRefillsLast FilledStart DateEnd DateStatus budesonide-formoteroL (SYMBICORT) 160-4.5 mcg/actuation inhaler Indications:Mild intermittent asthma without complicationInhale 2 puffs in the morning and 2 puffs before bedtime. 10.2 g 605Active albuterol-budesonide (AIRSUPRA) 90-80 mcg/actuation HFA aerosol inhaler Indications:Mild intermittent asthma without complicationInhale 2 Inhalations 4 (four) times a day as needed (wheezing, and shortness of breath). 10.7 g 5Active ergocalciferol (DRISDOL) 1,250 mcg (50,000 unit) capsule Indications:Low serum vitamin DTake 1 capsule (50,000 Units total) by mouth once a week. 12 capsule 5Active cyanocobalamin, vitamin B-12, 2,500 mcg tablet, sublingual Indications:Vitamin B 12 deficiencyPlace 1 tablet under the tongue in the morning. 90 tablet 5Active propranoloL (INDERAL) 10 mg tablet Indications:Heart palpitationsTake 1 tablet (10 mg total) by mouth in the morning and 1 tablet (10 mg total) before bedtime. 60 tablet 5Active hydrOXYzine (VISTARIL) 25 mg capsule Indications:AnxietyTake 1 capsule (25 mg total) by mouth 3 (three) times a day as needed for itching or anxiety. 90 capsule 5Active Active Problems ProblemNoted DateDiagnosed DateBipolar 1 peoiujes71/10/2025Vitamin B 12 tpignsrafy14/05/2025Low serum vitamin D010/14/2024Weight loss, unintentional 10/13/2024Heart ohumuypdlwnp01/04/2025arpal tunnel syndrome of left wrist 12/17/2023Vapes nicotine containing eqguqiurq27/07/2024Mild intermittent asthma 08/21/20225272Ltzudmvkv99/06/2019 Resolved Problems ProblemNoted DateDiagnosed DateResolved RfizFimzopr70 Encounters DateTypeDepartmentCare WxfeGfqtavjvvyv01/14/2025Orders Only [facility] [address] [phone] Maya Ramirez APRN-CNP Anxiety (Primary Dx)03/24/2025Telephone [address] [phone] Aydee Smalls CNA 03/21/2025 8:20 AM ESTOffice Visit [facility] [address] [phone] Maya Ramirez APRN-SHAY Heart palpitations (Primary Dx); Anxiety; Bipolar 1 disorder ([facility])03/21/20256826Wcfszb15/04/2025[facility] [phone] Maya Ramirez APRN-INCLINED RAILWAY OPERATOR 03/14/2025[facility] [phone] Maya Ramirez APRN-INCLINED RAILWAY OPERATOR Wfvglpi4602/07/2025Refill [facility] [address] [place] [address] [place] [address] Maya Ramirez, ROLLER SETTER-INCLINED RAILWAY OPERATOR Anxietyfrom Last 3 Months Family History Medical HistoryRelationNameCommentsOvarian fntdqkXvevha1qb cousin-pat.No Known ProblemsFatherBlood ClotsMaternal GrandfatherCancerMaternal GrandfatherskinNo Known ProblemsMotherHeart diseasePaternal GrandfatherBreast cancerNeg HxColon cancerNeg HxDiabetesNeg HxHypertensionNeg HxStrokeNeg HxRelationNameStatus KkjkxinwZiedcr4rm cousin-pat.AliveFatherAliveMaternal GrandfatherMotherAlive Paternal Grandfather Social History Tobacco UseTypesPacks/DayYears UsedDateSmoking Tobacco: FormerCigarettes0.310 2011 - 2021Vaping/E-cigarettesSmokeless Tobacco: Never Tobacco Cessation:Counseling Given: Not Answered Alcohol UseStandard Drinks/WeekCommentsYes0 (1 standard drink = 0.6 oz pure alcohol)occasionallyPHQ-2AnswerDate RecordedTotal Lglrr606/10/2025Childcare AnswerDate IcjcszfjHyjrbvtusKpzkbfx76/12/2019EmploymentAnswerDate Recorded GsaektmgbzWklcazw01/12/2019Hunger ScreeningAnswerDate RecordedWithin the past 12 months we worried whether our food would run out before we got money to buy more.Never True03/21/2025Within the past 12 months the food we bought just didn't last and we didn't have money to get more.Never True03/21/2025Purpose - LifeAnswerDate RecordedPurpose and direction in udnfRvfuqob25/03/2021 CommentsNoSex and Gender InformationValueDate RecordedSex Assigned at BirthNot on fileLegal YusHlcrum49/06/2015 11:44 AM EDTGender IdentityNot on fileSexual OrientationNot on file Last Filed Vital Signs Vital SignReadingTime TakenCommentsBlood Pbzddtjt534/7811 8:18 AM EST Oydpo4282/02/2025 8:18 AM VDDRlcqbuunrwk07.3 ??C (99.2 ??F)03/21/2025 8:18 AM ESTRespiratory Swth294109/10/2022 10:10 AM EDTOxygen Qttdkuxrvb26%12/22/2024 7:35 AM EDTInhaled Oxygen Concentration--Dvgagg85.9 kg (107 lb 12.8 oz)03/21/2025 8:18 AM GWKZqtmpn691 cm (5' 2.99 )03/21/2025 8:18 AM ESTBody Mass Index19.1 03/21/2025 8:18 AM EST Plan of Treatment DateTypeDepartmentCare Team (Latest Contact Info)Ktfxdvcocpz22/05/2026 8:20 AM ESTOffice Visit [facility] [address] [facility] [place] [address] Maya Ramirez, ROLLER SETTER-INCLINED RAILWAY OPERATOR [address], [place] [address] Health MaintenanceDue DateLast DoneCommentsDTaP,Tdap and Td Vaccines (1 - Tdap) 2009Influenza Dblxent2301/10/2025Tobacco Zzjrkzccf39dult BMI Tyrdgggta51Depression Rlmqnhzfm89Pap Smear, 10/29/2023, 08/21/2022, Additional history exists Medical Devices Not on file Procedures Procedure NamePriorityDate/TimeAssociated DiagnosisCommentsPAP SMEARRoutine 10/29/2023 5:00 AM EDT Pap smear, as part of routine gynecological examination History of abnormal cervical Pap smear from Last 3 Months or Most Recently Relevant to Health Maintenance Results * Pap Smear (10/29/2023 5:00 AM EDT)Specimen (Source)Anatomical Location / LateralityCollection Method / VolumeCollection TimeReceived Time06/ 5:00 AM EDT10/29/2023 5:22 AM EDT Narrative COPATH - 11/10/2023 4:00 PM EDT ? [facility] ? [address] [place] [address] ? [place] [address] ? Gynecologic Cytology Consultation ? Patient Name:NATALYA KINCAID:1990 (Age: 32)Gender:FTaken:4Reported:11/10/2023hysician(s):Quin Wall APRN- CNPCopy To: Rec. #:[id number]: #[id number] Final Cytologic Interpretation ThinPrep Pap Test (Cervical): Satisfactory for evaluation. A transformation zone component is present. SQUAMOUS EPITHELIAL CELL ABNORMALITY Atypical squamous cells of undetermined significance (ASC-US). 11/10/2023 Interpretation [place] [address], License number: [id number]. Electronically Signed Out By ?Tarun Hayes MD Date of Last Menstrual Period: ? (None Given) Other Clinical Conditions: Previous abnormal pap Z01.419 Laboratory Tester exam wo/abn findings Source of Specimen ??ThinPrep Pap Test (Cervical) ? Thin Prep Pap (TACTICAL AIR DEFENSE CONTROLLER) Fee Code(s): ?? G0145, 48562 ? The Pap test is a screening test with an inherent, but low, probability of error. The Pap test is primarily effective for the diagnosis and prevention of squamous cell carcinoma. Regular screening iscritical for prevention. ThinPrep liquid-based slides, which meet the Tenoner Operator criteria for automated screening, have been screened by the PinoccioPrep Imaging System (as of 01/26/07) along with an additional manual rescreening by a inside sales and, if indicated, by a pathologist. Authorizing ProviderResult TypeResult Carson Amaya APRN-INCLINED RAILWAY OPERATOR PATHOLOGY/CYTOLOGY ORDERABLESFinal ResultPerforming OrganizationAddress City/State/ZIP CodePhone Number COPATH from Last 3 Months or Most Recently Relevant to Health Maintenance Insurance [address] [place] [address] Care Teams Team MemberRelationshipSpecialtyStart DateEnd Date Maya Ramirez, BOONE-SHAY [address] [place] [address] PCP - GeneralFamily Medicine10/13/24
== END 2025-04-26 07:34 | disposition home or self-care (01) ==
LOC: CARD 07:35
PROVIDERS: Visit Provider Nurse Practitioner Family
DX: R00.2 Palpitations (principal)
CPT/HCPCS: 93246

== ENCOUNTER 2025-05-11 10:02 | Outpatient (OUT) | payer OTHER, SELFPAY ==
--- OUTSIDE RECORDS SUMMARY | 2025-05-11 09:00 | XMS_ITS | Encounter Summary ---
Author Organization [facility] Address [address] [place] [address] Care Team Providers Care Field Contact Technician Name Role Phone Natalie Landaverde SHAY Primary Care Provider [phone] Reason for Referral * Consultation (Routine) - Pending ReviewSpecialtyDiagnoses / ProceduresReferred By ContactReferred To ContactCardiology Diagnoses Palpitations Abnormal EKG Procedures [place] OFFICE/OUTPATIENT [facility] 60 MINUTES Harley Ennis MD [address] [facility] [address] Phone: tel: fax: Norberto Farias MD [address] [place] [address] Phone: tel: fax: Referral IDStatusReasonStart DateExpiration DateVisits RequestedVisits [id number] Review Specialty Services Required Encounter Details DateTypeDepartmentCare Team (Latest Contact Info)Pjytxvgvzbr34/31/2025 9:00 AM ESTOffice Visit [facility] [address] [place] [phone] Harley Ennis MD [address] [place] [address] Shortness of breath (Primary Dx); Palpitations; Abnormal EKG Social History Tobacco UseTypesPacks/DayYears UsedDateSmoking Tobacco: Every DaySmokeless Tobacco: Current Tobacco Cessation:Ready to Q uit: Not Asked; Counseling Given: Not Answered CommentsUnknownSex and Gender InformationValueDate RecordedSex Assigned at LiggkAgyrle34/23/2025 2:23 PM ESTLegal YcsQvkhnq87/12/2025 12:29 PM EDTGender ZlnkbbckNfkufe33/23/2025 2:23 PM ESTSexual OrientationHeterosexual or Straight 05/03/2025 2:23 PM ESTdocumented as of this encounter Last Filed Vital Signs Vital SignReadingTime TakenCommentsBlood Pressure--Pulse--Temperature-- Respiratory Rate--Oxygen Saturation--Inhaled Oxygen Concentration--Salknb13.9 kg (110 lb)05/11/2025 9:05 AM BEPYpasqm262 cm (5' 3 )05/11/2025 9:05 AM ESTBody Mass Index19.4905/11/2025 9:05 AM ESTdocumented in this encounter Progress Notes * Harley Ennis MD - 05/11/2025 9:00 AM EST Images from the original note were not included. [place] [facility] Subjective Natalya Kincaid is a 34 y.o. year old female patient being seen to establish care for palpitations/racing heart beats. She currently vapes daily. Gets SOB w/wo palpitations. Says chest pain occurs with high anxiety . Recent testing includes EKG, Holter monitor, and echo- done in November 2024. Problem List[1] Family History[2] Social History[3] HPI She is seen as a new patient referred for palpitations. She is a 34-year-old woman who has been having significant symptoms of palpitations Over the past 1-1/2 years. She reports that the palpitations happen mostly at rest at night when she is lying down or when she is sitting in having conversation. she reports that the palpitations last anywhere between 5 to 10 seconds and feel like a fluttering sensation or rapid heartbeats and strong heartbeats. They resolve spontaneously. She says that with the palpitations she feels chest pain. It does not radiate. It resolves with the palpitations. No palpitations with exertion. She reports adequate exercise tolerance. She does have shortness of breath with exertion NYHA class II symptoms. She denies lower extremity edema, and syncope. She was evaluated in the emergency room at the [facility] on 08/30/2024 due to palpitations. She was noted to be hypokalemic at that time. It was thought related to recent diarrhea. Other investigations were within normal limits. Follow-up blood testing in October 2024 showed normalization of potassium levels. She recently wore a Holter monitor for 48 hours that was nonrevealing. An echocardiogram showed normal ventricular and valvular function. Normal right- sided pressures. Her ECG is notable for RSR prime pattern in V1 and V2 as well as T wave inversions in V1 and V2. Review of Systems Cardiovascular: Positive for chest pain (with anxiety), dyspnea on exertion, irregular heartbeat and palpitations. Neurological: Positive for light-headedness. All other systems reviewed and are negative. Objective Visit Vitals Ht 1.6 m (5' 3 ) Wt 49.9 kg (110 lb) BMI 19.49 kg/m?? Smoking Status Every Day BSA 1.49 m?? Physical Exam Constitutional: Appearance: She is well-developed. She is not ill-appearing. HENT: Head: Normocephalic and atraumatic. Nose: Nose normal. Eyes: General: No scleral icterus. Pupils: Pupils are equal, round, and reactive to light. Neck: Thyroid: No thyromegaly. Vascular: No JVD. Cardiovascular: Rate and Rhythm: Normal rate and regular rhythm. Pulses: Radial pulses are 2+ on the right side and 2+ on the left side. Heart sounds: Normal heart sounds. No murmur heard. No friction rub. No gallop. Pulmonary: Effort: Pulmonary effort is normal. No respiratory distress. Breath sounds: Normal breath sounds. No wheezing or rales. Chest: Chest wall: No tenderness. Abdominal: General: Bowel sounds are normal. There is no distension. Palpations: Abdomen is soft. Tenderness: There is no abdominal tenderness. Musculoskeletal: General: No swelling. Cervical back: Neck supple. Skin: General: Skin is warm and dry. Neurological: General: No focal deficit present. Mental Status: She is alert and oriented to person, place, and time. Psychiatric: Mood and Affect: Mood normal. Behavior: Behavior is cooperative. Judgment: Judgment normal. Allergies Allergies[4] Medications Current Medications[5] Recent Labs Blood testing 08/30/2024: Hemoglobin 13, platelets 273, potassium 3.4, BUN 3, creatinine 0.62, eGFR more than 60, LFTs normal, TSH normal. Blood testing 10/13/2024: Hemoglobin 13.3, platelets 253, potassium 4.0, BUN 8, creatinine 0.47, LFTsnormal, TSH normal, free T4 normal. Imaging and other tests Echocardiogram 12/02/2024: Left Ventricle: Left ventricle appears normal in size. Systolic function is normal with an ejection fraction of 55-60%. Aortic Valve: There is trace regurgitation. There is no evidence of aortic valve stenosis. Mitral Valve: There is trace regurgitation. There is no evidence of mitral valve stenosis. Tricuspid Valve: There is trace to mild regurgitation. Right ventricular size appears normal. Systolic function is normal. The right atrial pressure is estimated at 3 mmHg. IVC appears normal. There is normal collapse withdeep inspiration. RVSP calculated at 17 mmHg. RVSP is based on RA pressure of 3 mmHg. 48 hour Holter monitor 11/26/2024: 1. The rhythm is sinus rhythm with average heart rate of 74 beats per minute with a minimum of 43 beats per minute and a maximum 147 beats per minute 2. No runs of ventricular or supraventricular tachycardia 3. No significant pauses 4. Symptoms of heart skipping or pounding and heart fluttering racing corresponded to sinus rhythm at 73 beats per minute while driving, symptoms of dizziness/lightheadedness corresponded to sinus rhythm at 78 beats per minute, symptoms of shortness of breath while standing corresponded to sinus rhythm at 81 beats per minute. ECG 11/18/2024: Sinus rhythm, nonspecific T abnormality, anterior leads. ECG 08/30/2024: Sinus rhythm, RSR in leads V1/V2 consistent with right ventricular conduction delay. Assessment/Plan Diagnoses and all orders for this visit: Shortness of breath - Routine Stress (Treadmill Only); Future Palpitations - Magnesium; Future - Comprehensive metabolic panel; Future - Ambulatory referral to Cardiac Electrophysiology; Future - Routine Stress (Treadmill Only); Future Abnormal EKG - Ambulatory referral to Cardiac Electrophysiology; Future She has significant symptoms of palpitations that are scaring her. So far the investigations included EKG and a 48-hour Holter monitor. The Holter monitor did not show arrhythmia. she recently wore a7-day monitor that she just returned and the results are not available during this visit. In addition she has shortness of breath on exertion NYHA class II symptoms as well as symptoms of chest pain happening with the palpitations. I reviewed her EKGs and they show RSR prime pattern in V1and V2 as well as nonspecific T wave inversions in V1, V2 and V3 depending on the EKG. Given the above I am going to investigate her symptoms by a stress test with EKG monitoring to check for any evidence of arrhythmia during exercise, check her heart rate response and any evidence of ischemia. I believe that ischemic heart disease in her situation carries a very low probability given her youngerage with no significant risk factors. I am going to check CMP and magnesium levels. We will review her 7-day monitor result once available. I will refer her to Dr. Norberto Farias from electrophysiology to review the results of the above and decide on further testing that could include long-term rhythm monitoring as well as possible additional cardiac imaging depending on results of monitoring. No follow-ups on file. Harley Ennis MD [1] Patient Active Problem List Diagnosis Bipolar 1 disorder (CMS/HCC) Carpal tunnel syndrome of left wrist Heart palpitations Low serum vitamin D Migraines Mild intermittent asthma Vapes nicotine containing substance Vitamin B 12 deficiency Weight loss, unintentional Anxiety [2] Family History Problem Relation Name Age of Onset Arrhythmia Paternal Grandmother Valvular heart disease Paternal Grandfather [3] Social History Tobacco Use Smoking status: Every Day Smokeless tobacco: Current [4] No Known Allergies [5] Current Outpatient Medications: Abilify 2 mg tablet, Take 2 mg by mouth 1 (one) time each day at the same time., Disp: , Rfl: Airsupra 90-80 mcg/actuation HFA aerosol inhaler, every 4 (four) hours., Disp: , Rfl: budesonide-formoteroL (Symbicort) 80-4.5 mcg/actuation inhaler, as directed Inhalation, Disp: , Rfl: hydrOXYzine HCL (Atarax) 25 mg tablet, Take 25 mg by mouth 2 times daily., Disp: , Rfl: propranolol (Inderal) 10 mg tablet, Take 10 mg by mouth two times daily., Disp: , Rfl: documented in this encounter Plan of Treatment DateTypeDepartmentCare Team (Latest Contact Info)Swcnssmeruv10/13/2026 3:45 PM EDTOffice Visit [facility] [address] [place] [phone] Norberto Farias MD [address] [place] [address] NameTypePriorityAssociated DiagnosesOrder ScheduleMagnesiumLabRoutine Palpitations Expected: 05/11/2025 (Approximate), Expires: 05/11/2026omprehensive metabolic panelLabRoutine Palpitations Expected: 05/11/2025 (Approximate), Expires: 05/11/2026Routine Stress (Treadmill Only)Cardiac ServicesRoutine Shortness of breath Palpitations Expected: 05/11/2025 (Approximate), Expires: 05/11/2027NameTypePriority Associated DiagnosesOrder ScheduleAmbulatory referral to Cardiac ElectrophysiologyOutpatient ReferralRoutine Palpitations Abnormal EKG Expected: 05/11/2025 (Approximate), Expires: 11/08/2025documented as of this encounter Visit Diagnoses Diagnosis Shortness of breath- Primary Palpitations Abnormal EKG Nonspecific abnormal electrocardiogram (ECG) (EKG) documented in this encounter Care Teams Team MemberRelationshipSpecialtyStart DateEnd Date Natalie Landaverde CNP [facility] [facility], [place] [address] PCP - GeneralFamily Jwkajysj48/29/25documented as of this encounter
--- OUTSIDE RECORDS SUMMARY | 2025-05-11 10:07 | XMS_ITS | Patient Health Record ---
Author Organization [facility] [place] Address [address] [place] [address] Care Team Providers Care Material Control Clerk Name Role Phone Natalie Landaverde Primary Care Provider Allergies No Known Allergies Reason For Referral Reason palpitations Diagnosis 1 Palpitations (R00.2) Referral Organization [facility] Referring Provider First Name Natalie Referring Provider Last Name Saima [facility]erring Provider [facility] Harley Ennis Referred Provider Specialty Cardiology Referral Priority Routine Medications Medication SIG (Take, Route, Frequency, Duration) Notes Start Date End Date Status Propranolol HCl 10 MG 1 tablet on an empty stoma ch Orally every 12 hrs ActivehydrOXYzine Pamoate 25 MG1 capsule at bedtime as needed Orally Once a day MnvrzvY29 5000 MCGas directed SublingualActiveAirsupra 90-80 MCG/ACT2 puffs as needed Inhalation Six times a dayActiveAbilify 2 MG1 tablet Orally Once a day; Duration: 30 days5ActiveSymbicort 80-4.5 MCG/ACTas directed Inhalation Active Social History Tobacco Use: Social History Observation Description Date Details (start date - stop date) Current Smoker NA - NA Tobacco Control (Standard) Question Answer Notes Tobacco use: Current smoker Additional Findings: Tobacco txchl-tyliatuaiDRWWD-Z (Standard) Question Answer Notes Did you have [...] Status W/U Status Risk Notes Problem Anxiety (10862630) Anxiety (F41.9) ActiveconfirmedProblemBipolar disorder (52943315)Bipolar disorder (F31.9)Active confirmed Vital Signs Heart Rate 81 /min 04/19/2025 Blood pressure mlhzsbydg18 mm Hg04/19/20250735Vswawc14 in04/19/2025lood pressure rnzxnrgu164 mm Hg04/19/20259473Jilwiu706.8 lbs106/20/2024BMI19.27 kg/m204/19/2025 Procedures Procedure Date Ordered Date Performed Result Body Sit e Holter Monitor - 3 days up to 14 days 04/19/2025 N/A Encounters Encounter Location Date Provider Diagnosis [facility] [address] [place] [address] 04/19/2025 Natalie Landaverde [facility] [place] [address] 04/19/2025Pamela CramarcPalpitations R00.2 ; Anxiety F41.9 ; Bipolar disorder [...] Name:Natalie gastelum, 05/17/2025 08:30:00 AM, [address] [place], [address], Insurance Providers Payer Name Payer Address Payer Phone Subscriber Number Group Number Insured Name Patient Relationship to Insured Coverage Start Date Coverage End Date [employer] [place] [employer] [address] [place] [phone] [id number] CANDIDA AKHTARelf - patient is the insured Medical (General) History Medical History History ICD Code Asthma J45.909 Bipolar disorder F31.9
--- OUTSIDE RECORDS SUMMARY | 2025-05-11 10:07 | XMS_ITS | Clinical Summary ---
Author Organization [facility] Address [address] [place] [address] Care Team Providers Care Industrial Retrofit Designer Name Role Phone Natalie Landaverde SHAY Primary Care Provider [phone] Allergies No known active allergies Medications MedicationSigDispense QuantityRefillsLast FilledStart DateEnd DateStatus budesonide-formoteroL (Symbicort) 80-4.5 mcg/actuation inhaler as directed InhalationActive Airsupra 90-80 mcg/actuation HFA aerosol inhaler every 4 (four) hours.5Active hydrOXYzine HCL (Atarax) 25 mg tablet Take 25 mg by mouth 2 times daily.5Active Abilify 2 mg tablet Take 2 mg by mouth 1 (one) time each day at the same time.5Active propranolol (Inderal) 10 mg tablet Take 10 mg by mouth two times daily.Active Active Problems ProblemNoted DateDiagnosed CmjqZqslyse95/31/2025Bipolar 1 hznhwste66/10/2025Low serum vitamin D010/14/2024Vitamin B 12 irmivmxzlr49/05/2025Heart palpitations 10/13/2024Weight loss, eoasyzekgwpok38/04/2025arpal tunnel syndrome of left wrist12/17/2023Vapes nicotine containing /07/2024Mild intermittent idlvpl3708/21/20227616Fllrgrpip63/06/2019 Encounters DateTypeDepartmentCare DqbnElhrmtznczi78/31/2025 9:00 AM ESTOffice [facility] [address] [place] [address] Harley Ennis MD Shortness of breath (Primary Dx); Palpitations; Abnormal EKGfrom Last 3 Months Family History Medical HistoryRelationNameCommentsValvular heart diseasePaternal Grandfather ArrhythmiaPaternal GrandmotherRelationNameStatusCommentsPaternal Grandfather Paternal Grandmother Social History Tobacco UseTypesPacks/DayYears UsedDateSmoking Tobacco: Every DaySmokeless Tobacco: Current Tobacco Cessation:Ready to Q uit: Not Asked; Counseling Given: Not Answered CommentsUnknownSex and Gender InformationValueDate RecordedSex Assigned at RejrbJdjlfb80/23/2025 2:23 PM ESTLegal AasWfrinc69/12/2025 12:29 PM EDTGender FcecuwkoKuebmw82/23/2025 2:23 PM ESTSexual OrientationHeterosexual or Straight 05/03/2025 2:23 PM EST Last Filed Vital Signs Vital SignReadingTime TakenCommentsBlood Pressure--Pulse--Temperature-- Respiratory Rate--Oxygen Saturation--Inhaled Oxygen Concentration--Ttskxd96.9 kg (110 lb)05/11/2025 9:05 AM ZKCFhjcgy682 cm (5' 3 )05/11/2025 9:05 AM ESTBody Mass Index19.4905/11/2025 9:05 AM EST Plan of Treatment DateTypeDepartmentCare Team (Latest Contact Info)Mcgieedymjz16/13/2026 3:45 PM EDTOffice Visit [facility] [address] [place] [address] Norberto Farias MD [address] [place] [address] Health MaintenanceDue DateLast DoneCommentsDepression Onhmxogby87/04/2003 Varicella Vaccines (1 of 2 - 13+ 2-dose series)12/14/2003Hepatitis B Vaccines (1 of 3 - 19+ 3-dose series)2009Pneumococcal Vaccine: Pediatrics (0 to 5 Years) and At-Risk Patients (6 to 64 Years) (1 of 2 - PCV)2009Pap Smear 12/14/2011dult Wjniudd6812/13/2012HPV Vaccines (1 - 3-dose SCDM series)2017 Cervical Cancer Mcdbwaapf82/04/2021HPV/Nrlbwl3212/13/2020OVID-19 Vaccine (1 - 2024- season)2025Influenza Vaccine (#1)2025Zoster Vaccines (1 of 2)2040HIB VaccinesAged OutNo longer eligible based on patient's age to complete this topicIPV VaccinesAged OutNo longer eligible based on patient's age to complete this topicMeningococcal B VaccineAged OutNo longer eligible based on patient's age to complete this topicMeningococcal VaccineAged OutNo longer eligible based on patient's age to complete this topicRotavirus VaccinesAged Out No longer eligible based on patient's age to complete this topic Insurance Care Teams Team MemberRelationshipSpecialtyStart DateEnd Date Natalie Landaverde CNP [facility] [facility], [place] [address] PCP - GeneralFamily Golzxust50/29/25
--- OUTSIDE RECORDS SUMMARY | 2025-05-11 10:19 | XMS_ITS | CCD ---
Author Organization [facility] Care Team Providers Care Senior Gl Accountant Name Role Phone Ofelia Magana Unavailable Unavailable Primary Care Provider UnavailMateo Burns Unavailable China Truong Unavailable OFELIA MAGANA Primary Care Unavailable DANIELLE SANCHEZ Admitting Unavailable DANIELLE SANCHEZ Attending Unavailable DANIELLE SANCHEZ Consulting Unavailable RANDY CALVO Consulting Unavailable Natalie Prieto Unavailable Swetha Kristie Unavailable Estela ACCOUNT CONTACT ASSOCIATE-ALODIZE MACHINE HELPER, Ofelia Primary Care Provide r Mateo Slade Attending Unavailable Mateo Slade Admitting Unavailable Mateo Slade PA-C Attending Provider [phone] Ashley ACCOUNT CONTACT ASSOCIATE-SOFTWARE TESTER Maya A Primary Care Provi carlos enrique ASHLEY MAYA A Referring Unavailable ASHLEY, MAYA A Primary Care Unavailable ASHLEY, MAYA A Referring Unavailable ASHLEY, MAYA A Primary Care Unavailable ASHLEY, MAYA A Referring Unavailable ASHLEY, MAYA A Primary Care Unavailable ASHLEY MAYA A Attending Unavailable OFELIA MAGANA Referring Unavailable ASHLEY, MAYA A Primary Care Unavailable ASHLEY, MAYA A Attending Unavailable ASHLEY, MAYA A Referring Unavailable ASHLEY, MAYA A Primary Care Unavailable ASHLEY, MAYA A Attending Unavailable ASHLEY, MAYA A Referring Unavailable ASHLEY, MAYA A Primary Care Unavailable ASHLEY, MAYA A Attending Unavailable ASHLEY, MAYA A Referring Unavailable ASHLEY, MAYA A Primary Care Unavailable Allergies Allergy ClassificationReported Allergen(s)Allergy TypeDate of OnsetReaction(s) Facility (16 sources)Shellfish; Translations: [SHELLFISH DERIVED]Propensity to adverse reactions to [id number], [facility] Medications Current Medications MedicationDrug Class(es)DatesSig (Normalized)Sig (Original)[id number] 200 actuat albuterol 0.09 mg/actuat metered dose inhaler (20 sources)beta2-Adrenergic AgonistStart: 96-52-2611ibii 1 puff(s) by inhalation every four to six hours as needed for wheezingAlbuterol Sulfate 90 mcg/actuation HFA aerosol inhaler Active 2 PUFF INHALATION EVERY 4-6 HOURS as n eeded for shortness of breath or wheezing 8.5 June 26, 2024 1:00amStart: 62-77-9571tkfo 2 puff(s) by inhalation every four hours as neededAlbuterol Sulfate HFA 108 (90 Base) MCG/ACT 2 puffs as needed Inhalation every 4 hrs Mar, ActiveStart: 20-55-4568wsuj 2 puff(s) by inhalation every four hours as neededAlbuterol Sulfate HFA 108 (90 Base) MCG/ACT 2 puffs as needed Inhalation every 4 hrs for 30 days 2021 Not-Taking/PRNStart: 03-14-2022 take 2 puff(s) by inhalation every four hours as neededAlbuterol Sulfate HFA 108 (90 Base) MCG/ACT 2 puffs as needed Inhalation every 4 hrs for 30 days 2021 Not-TakingStart: 58-23-7612omgn 2 puff(s) by inhalation every four hours as neededAlbuterol Sulfate HFA 108 (90 Base) MCG/ACT 2 puffs as needed Inhalation every 4 hrs May, ActiveStart: 09-24-6757togs 2 puff(s) by inhalation every four hours as neededAlbuterol Sulfate HFA 108 (90 Base) MCG/ACT 2 puffs as needed Inhalation every 4 hrs May, ActiveStart: 79-07-8540wqnd 1 puff(s) by inhalation every four hours as neededProAir HFA 108 (90 Base) MCG/ACT 1 puff as needed Inhalation every 4 hrs for 30 days Nov, Not-TakingStart: 15-85-2853lyiu 2 puff(s) by inhalation every four hours as neededAlbuterol Sulfate HFA 108 (90 Base) MCG/ACT 2 puffs as needed Inhalation every 4 hrs Nov, Activealbuterol-budesonide (AIRSUPRA) 90-80 mcg/actuation HFA aerosol inhaler (10 sources)Start: 80-11-3893kxdghuqaa-budesonide (AIRSUPRA) 90-80 mcg/actuation HFA aerosol inhaler Indications: Mild intermittent asthma without complication Inhale 2 Inhalations 4 (four) times a day as needed (wheezing, and shortness of breath). 10.7 g 4 10/13/2024 Activeamoxicillin 875 mg / clavulanate 125 mg oral tablet (4 sources)Penicillin-class AntibacterialStart: 22-29-5060bhtx 1 tablet by mouth every twelve hoursAmoxicillin-Pot Clavulanate 875-125 MG 1 tablet Orally every 12 hrs for 7 day(s) Jul, ActiveStart: 59-23-2421wpsc 1 tablet by mouth every twelve hoursAmoxicillin-Pot Clavulanate 875-125 MG 1 tablet Orally every 12 hrs for 7 days Jul, Not-TakingARIPiprazole (3 sources)Atypical AntipsychoticAbilify Activeazithromycin 250 mg oral tablet (3 sources)Macrolide AntimicrobialStart: 54-98-6242Yuhgotgkokdd 250 MG 2 tablets on the first day, then 1 tablet daily for 4 days Orally Once a day for 5 day(s) May, ActiveBudesonide / formoterol (19 sources)Corticosteroid, beta2-Adrenergic AgonistStart: 02-56-3068whmt 2 puff(s) by inhalation in the morningbudesonide-formoteroL (SYMBICORT) 160-4.5 mcg/actuation inhaler Indications: Mild intermittent asthma without complication Inhale 2 puffs in the morning and 2 puffs before bedtime. 10.2 g 6 10/13/2024 ActiveStart: 06-02-8939ytvv 2 puff(s) by inhalation twice dailySymbicort 80-4.5 MCG/ACT 2 puffs Inhalation Twice a day for 30 day(s) Nov, ActiveStart: 12-52-8824lkhe 2 puff(s) by inhalation twice daily as neededSymbicort 80-4.5 MCG/ACT 2 puffs Inhalation Twice a day for 30 day(s) Nov, Not-Taking/PRN cariprazine 1.5 mg oral capsule (7 sources)Atypical Antipsychotictake 1 capsule by mouth every twenty-four hours Vraylar 1.5 MG 1 capsule Orally Once a day Activeclotrimazole 0.01 mg/mg topical ointment (3 sources)Azole AntifungalStart: 21-33-4641Vlxtffau 1 % 1 application Externally Twice a day for 28 day(s) Jan, Znnzpj98 hr dextromethorphan hydrobromide 30 mg / guaiFENesin 600 mg extended release oral tablet (2 sources)Uncompetitive R-jssikf-E-aspartate Receptor Antagonist, Sigma-1 AgonistStart: 71-16-1942amie 1 tablet by mouth every twelve hoursMucinex DM 30- 600 MG 1 tablet as needed Orally every 12 hrs May, Activedoxycycline monohydrate 100 mg oral capsule (3 sources)Tetracycline-class DrugStart: 07-02-7803wnde 1 capsule by mouth every twelve hoursDoxycycline Monohydrate 100 MG 1 capsule Orally every 12 hrs for 7 days Jan, Activeergocalciferol 1.25 mg oral capsule (9 sources)Provitamin D2 CompoundStart: 82-69-3274hcje 1 capsule by mouth every weekergocalciferol (DRISDOL) 1,250 mcg (50,000 unit) capsule Indications: Low serum vitamin D Take 1 capsule (50,000 Units total) by mouth once a week. 12 capsule 2 10/14/2024 ActiveFish Oils (7 sources)take 1 capsule by mouth once dailyFish Oil 1000 MG 1 capsule Orally Once a day Activefluconazole 150 mg oral tablet (2 sources)Azole AntifungalStart: 18-97-0408Wczkzqaf 150 MG 1 tablet Orally take 1 tablet now then 1 tablet in 7 days for 2 days May, ActivehydrOXYzine hydrochloride 25 mg oral tablet (20 sources)AntihistamineStart: 10-88-0418hhch 1 tablet by mouth three times daily as needed for anxietyhydrOXYzine (ATARAX) 25 mg tablet Indications: Heart palpitations , Anxiety Take 1 tablet (25 mg total) by mouth 3 (three) times a day as needed for anxiety. 90 tablet 1 03/21/2025 ActiveStart: 11-24-2024 End: 95-27-5003woez 1-2 tablets by mouth every eight hours as needed for anxiety hydrOXYzine (ATARAX) 25 mg tablet Indications: Anxiety TAKE 1 TO 2 TABLETS BY MOUTH EVERY 8 HOURS NEEDED FOR ANXIETY 60 tablet 03/15/2025 03/21/2025 DiscontinuedStart: 09-30-2023 End: 69-43-9709Whpomphytwh Pamoate 50 mg capsule Discontinued MG PO September 30, 2023 12:00am June 26, 2024 11:37amStart: 93-57-2617Nhkhpmkjpnk Pamoate Active MG PO September 30, 2023 12:00am End: 15-62-9827udpu 5 tablets by mouth once as needed for anxietyhydrOXYzine (ATARAX) 10 mg tablet Take 5 tablets (50 mg total) by mouth once as needed for anxiety.11/24/2024 Discontinuedtake 1 tablet by mouth in the morning, then take 1 tablet by mouth at bedtimehydrOXYzine (ATARAX) 10 mg tablet Take 1 tablet (10 mg total) by mouth in the morning and 1 tablet (10 mg total) before bedtime. Activetake 1 tablet by mouth every twenty-four hourshydrOXYzine HCl 50 MG 1 tablet at bedtime as needed Orally Once a day ActivehydrOXYzine HCl Active methylPREDNISolone 4 mg oral tablet (15 sources)CorticosteroidStart: 02-48-3284qbqp 1 tablet by mouth once Methylprednisolone (Medrol (Chaka)) 4 mg tablets,dose pack Active 0 PO per package directions June 26, 2024 1:00am PO PER PKG DIR for 6 daysStart: 95-16-2348gsbmwePRZNZUPcvyxo 4 MG as directed Orally Once a day for 6 days Mar, Not-Taking/PRNStart: 53-25-6129jlovbuKJRYEVBprvpr 4 MG as directed Orally Once a day for 6 days Nov, ActiveStart: 05-21-2021 methylPREDNISolone 4 MG as directed Orally Once a day for 6 days May, ActiveStart: 20-25-4960Bfrrly (Chaka) 4 MG as directed Orally for daily dose take half with breakfast half with dinner for 6days Nov, Not-Takingmupirocin 0.02 mg/mg topical ointment (4 sources)RNA Synthetase Inhibitor AntibacterialStart: 91-49-6081Csyrdenqv 2 % 1 application to affected area Externally once per day for 7 days Mar, ActiveStart: 30-42-7326Ixiibcftj 2 % 1 application with Qtip to affected area Externally 2 times a day for 7 days Jan, Activeondansetron 4 mg disintegrating oral tablet (9 sources)Serotonin-3 Receptor AntagonistStart: 30-37-9240rvaa 1 tablet by mouth every eight hoursOndansetron 4 MG 1 tablet on the tongue and allow to dissolve Orally tid for 5 day(s) Jul, ActiveStart: 06-24-4691zujn 1 tablet by mouth every eight hours as neededZofran ODT 4 MG 1 tablet on the tongue and allow to dissolve Orally every 8 hrs as needed for 10 day(s) Mar, ActiveStart: 22-00-3407tpbq 1 tablet by mouth every eight hoursoseltamivir 75 mg oral capsule (2 sources)Neuraminidase InhibitorStart: 11-56-5667yzvm 1 capsule by mouth twice dailyOseltamivir 75 mg capsule Active 75 MG PO Twice daily 02 13June 26, 2024 1:00ampropranolol hydrochloride 10 mg oral tablet (1 source)beta-Adrenergic BlockerStart: 92-38-5613ntfs 1 tablet by mouth in the morning, then take 1 tablet by mouth at bedtimepropranoloL (INDERAL) 10 mg tablet Indications: Heart palpitations Take 1 tablet (10 mg total) by mouth in the morning and 1 tablet (10 mg total) before bedtime. 60 tablet 3 03/21/2025 Activevitamin b12 2.5 mg sublingual tablet (9 sources)Vitamin T80Swtwx: 47-79-8877qqeo 1 tablet under the tongue in the morningcyanocobalamin, vitamin B-12, 2,500 mcg tablet, sublingual Indications: Vitamin B [address] 1 tablet under the tongue in the morning. 90 tablet 1 10/14/2024 Active Completed/Discontinued Medications MedicationDrug Class(es)DatesSig (Normalized)Sig (Original)amitriptyline hydrochloride 50 mg oral tablet (8 sources)Tricyclic AntidepressantStart: 68-07-9834jvqu 1 tablet by mouth every twenty-four hoursAmitriptyline HCl 25 MG 1 tablet at bedtime Orally Once a day for 30 day(s) Jan, ActiveStart: 57-66-3232nudm 1 tablet by mouth every twenty-four hoursAmitriptyline HCl 50 MG 1 tablet at bedtime Orally Once a day for 30 day(s) Jan, Not-Taking/PRNamoxicillin 500 mg oral capsule (8 sources)Penicillin-class AntibacterialStart: 09-30-2023 End: 61-03-7507wczj 1 capsule by mouth every twelve hoursAmoxicillin 500 mg capsule Discontinued 500 MG PO Every 12 hours 28 02September 30, 2023 12:00am June 26, 2024 11:37amStart: 01-46-4163ojnm 1 tablet by mouth every twelve hoursAmoxicillin 500 MG 1 tablet Orally Twice a day for 10 Apr, Not-Taking/PRNStart: 32-27-6143zxqe 1 tablet by mouth every eight hours Amoxicillin 875 MG 1 tablet Orally every 8 hrs for 10 day(s) Feb, Not-Takingatenolol 25 mg oral tablet (11 sources)beta-Adrenergic BlockerStart: 11-24-2024 End: 37-53-2576gtzf 0.5 tablet by mouth at bedtimeatenoloL (TENORMIN) 25 mg tablet Indications: Heart palpitations , Anxiety Take 0.5 tablets (12.5 mg total) by mouth before bedtime. 15 tablet 6 11/24/2024 03/21/2025 Discontinued Start: 10-13-2024 End: 34-01-1499nalu 1 tablet by mouth at bedtimeatenoloL (TENORMIN) 25 mg tablet Indications: Anxiety , Heart palpitations Take 1 tablet (25 mg total) by mouth before bedtime. 30 tablet 6 10/13/2024 11/24/2024 Discontinuedbenzonatate 100 mg oral capsule (3 sources)Non-narcotic AntitussiveStart: 89-51-4151comn 1 capsule by mouth three times daily as neededTessalon Perles 100 MG 1 capsule as needed Orally Three times a day for 5 days Oct, Not-Takingbrompheniramine maleate 0.4 mg/ml / dextromethorphan hydrobromide 2 mg/ml / pseudoephedrine hydrochloride 6 mg/ml oral solution (5 sources)alpha-Adrenergic Agonist, Uncompetitive W-rmcntz-L-aspartate Receptor Antagonist, Sigma-1 AgonistStart: 30-27-2088ozte 10 mL by mouth every six hours as ovmlmwItxvkvusn-Sqelmovk-NI 30-2-10 MG/5ML 10 mL Orally every 6 hours for 5 days Mar, Not-Taking/PRNbusPIRone hydrochloride 15 mg oral tablet (20 sources)Start: 09-30-2023 End: 34-67-0870Doztapxqd 15 mg tablet Discontinued MG PO September 30, 2023 12:00am June 26, 2024 11:37amStart: 45-14-9384Bwtxufaav Active MG PO September 30, 2023 12:00am End: 14-53-2582qogf 1 tablet by mouth in the morningbusPIRone (BUSPAR) 5 mg tablet Take 1 tablet (5 mg total) by mouth in the morning. 10/13/2024 Discon tinuedtake 1 tablet by mouth every twelve hoursbusPIRone HCl 15 MG 1 tablet Orally Twice a day ActiveBuSpar Activecetirizine hydrochloride 10 mg oral tablet (3 sources)Histamine-1 Receptor AntagonistStart: 68-01-1271dhlg 1 tablet by mouth every twenty-four hoursCetirizine HCl 10 MG 1 tablet Orally Once a day for 30 day(s) Oct, Not-Takingclindamycin 300 mg oral capsule (3 sources)Lincosamide AntibacterialStart: 66-39-8681nifw 1 capsule by mouth every eight hoursClindamycin HCl 300 MG 1 cap(s) Orally tid for 10 days Nov, Not-Taking/PRNcyclobenzaprine hydrochloride 10 mg oral tablet (4 sources)Muscle Relaxanttake 1 tablet by mouth every eight hours Cyclobenzaprine HCl 10 MG 1 tab(s) Orally 3 times a day Not-Taking/PRN dextromethorphan hydrobromide 1.5 mg/ml / pyrilamine maleate 1.5 mg/ml oral solution (10 sources)Uncompetitive R-utojso-K-aspartate Receptor Antagonist, Sigma-1 AgonistStart: 71-05-8872Fsapix DM 7.5-7.5 MG/5ML 10 ml Orally every 6-8 hours as needed for 8 days Mar, Not-Taking/PRNStart: 14-58-4684Unrfip DMT 30-30 MG 1 tablet Orally every 6-8 hours for 7 days Nov, Not-Taking escitalopram 5 mg oral tablet (14 sources)Serotonin Reuptake InhibitorStart: 09-30-2023 End: 00-24-4798Ltvuazlqlvoz Oxalate 5 mg tablet Discontinued MG PO September 30, 2023 12:00am June 26, 2024 11:37amStart: 87-82-7647Tsxjrqzwbsjy Oxalate Active MG PO September 30, 2023 12:00am End: 23-89-6301ztat 1 tablet by mouth once dailyescitalopram (LEXAPRO) 20 mg tablet Take 20 mg by mouth daily. 10/01/2023 Discontinued (Therapy completed) Lexapro Activefluticasone propionate 0.05 mg/actuat metered dose nasal spray (11 sources)CorticosteroidStart: 02-84-0882tehy 1 spray(s) nasal route once daily as neededFlonase Allergy Relief 50 MCG/ACT 1 spray in each nostril Nasally Once a day for 14 day(s) Mar, Not-Taking/PRNStart: 98-01-0517exli 1 spray(s) nasal route once dailyFlonase Allergy Relief 50 MCG/ACT 1 spray in each nostril Nasally Once a day for 14 day(s) Mar, Not-TakingStart: 69-35-8982wfsm 1 spray(s) nasal route once dailyFluticasone Propionate 50 MCG/ACT 1 spray in each nostril Nasally Once a day for 14 day(s) Nov, Not-Takingibuprofen 600 mg oral tablet (6 sources)Nonsteroidal Anti-inflammatory DrugStart: 52-55-9379kevf 1 tablet by mouth three times daily at mealtime as neededIbuprofen 600 MG 1 tablet with food or milk as needed Orally tid prn for 10 days Nov, Not-Taking/PRNStart: 16-02-0303hzzd 1 tablet by mouth three times daily at mealtime as needed Ibuprofen 800 MG 1 tablet with food or milk as needed Orally Three times a day for 10 day(s) Feb, Active1 ml medroxyPROGESTERone acetate 150 mg/ml injection (14 sources)ProgestinStart: 10-01-2023 End: 36-64-0793itcmpppQPTAQIAEJbgi (DEPO-PROVERA) injection 150 mgStart: 10-01-2023 End: 50-82-2294ehbfbv 150 mg by intramuscular injection bbxa804 mg, intramuscular, Once, On Fri10/01/23 at 1200, For 1 dose, Look-alike/sound-alike medication - verify indication for use.Start: 25-06-7947Nhfm-Provera 150 MG/ML 1 ml Intramuscular for 30 day(s) Nov, Active End: 21-99-8462oiwdbilYUBUEMQFVqhi (DEPO-PROVERA) 150 mg/mL injection Inject 1 mL (150 mg total) into the appropriate muscle every 3 (three) months. 12/17/2023 Discontinued (Alternate therapy)metroNIDAZOLE 500 mg oral tablet (3 sources)Nitroimidazole AntimicrobialStart: 84-63-2396phui 1 tablet by mouth twice dailyFlagyl 500 MG 1 tablet Orally twice daily for 7 days Jul, Not-TakingNON FORMULARY (1 source) End: 62-80-7429bojnbutunxsgb 0.35 mg oral tablet (2 sources)Start: 12-17-2023 End: 27-34-8734yexl 1 tablet by mouth in the morningnorethindrone (MICRONOR) 0.35 mg tablet Indications: Encounter for initial prescription of contraceptive pills Take 1 tablet (0.35 mg total) by mouth in the morning. 84 tablet 3 12/17/2023 10/13/2024DiscontinuedOLANZapine (7 sources)Atypical AntipsychoticOLANZapine Not-TakingOLANZapine Activeomega 5-vth-gxo-fish oil (Fish OiL) 300-1,000 mg capsule (4 sources) End: 24-30-4386gqogu 4-dqo-bsu-fish oil (Fish OiL) 300-1,000 mg capsule Take by mouth. 10/13/2024 Discontinuedomega 0-skd-iah-fish oil (Fish OiL) 300-1,000 mg capsule Take by mouth. ActivepredniSONE 20 mg oral tablet (4 sources)Start: 53-22-8386ubky 1 tablet by mouth every twelve hourspredniSONE 20 MG 1 tablet Orally 2 times a day for 5 day(s) Jun, Not-Taking/PRN Sulfamethoxazole / Trimethoprim (3 sources)Dihydrofolate Reductase Inhibitor Antibacterial, Sulfonamide AntimicrobialBactrim Not-TakingBactrim ActiveToradol 30 mg/ml (14 sources)Start: 02-88-8037Gahxabg 30 mg/ml Jun, 30 mgStart: 19-53-2719Shqdqsu 30 mg/ml Feb, 60 mgtriamcinolone acetonide 40 mg/ml injectable suspension (5 sources)CorticosteroidStart: 53-51-8859Cqvyvdy-40 Jun, 40 mgStart: 37-97-3146Effbppkxvlkfd Acetonide 0.5 % 1 application to affected area Externally Twice a day for 7 days Mar, ActivevalACYclovir 500 mg oral tablet (2 sources)Herpesvirus Nucleoside Analog DNA Polymerase Inhibitor, Herpes Simplex Virus Nucleoside Analog DNA Polymerase Inhibitor, Herpes Zoster Virus Nucleoside Analog DNA Polymerase InhibitorStart: 08-21-2022 End: 30-13-6819cxlq 1 tablet by mouth in the morning, then take 1 tablet by mouth at bedtimevalACYclovir (VALTREX) 500 mg tablet Indications: Vulvar lesion Take 1 tablet (500 mg total) by mouth in the morning and 1 tablet (500 mg total) before bedtime. 10 tablet 08/21/2022 10/29/2023 Discontinued (Therapy completed) Problems Active Problems Problem ClassificationProblemDateDocumented DateEpisodic/ChronicAbdominal pain (3 sources)Unspecified abdominal pain; Translations: [UNSPECIFIED ABDOMINAL PAIN]Onset: 00-71-0729OlcfnhqlDvelgkg disorders (20 sources)Generalized anxiety disorder; Translations: [Generalized anxiety disorder]Onset: 873213-55-3929EbxaxosExmric (20 sources)Acute exacerbation of mild persistent asthma; Translations: [Mild persistent asthma with (acute) exacerbation]Onset: 11-27-2021 Resolved: 92-28-5882CzazogvTxmbfpkum infection; unspecified site (1 source)Other specified bacterial agents as the cause of diseases classified elsewhereEpisodicCardiac dysrhythmias (20 sources)Palpitations; Translations: [Palpitations]Onset: 10-13-2024 18-05-8342OrqckeusMiqojkrb, dementia, and amnestic and other cognitive disorders (9 sources)Postconcussion syndrome; Translations: [Postconcussional syndrome] ChronicDiabetes mellitus without complication (1 source)Other abnormal glucoseEpisodicDisorders of teeth and jaw (3 sources)Periapical abscess without sinus; Translations: [Dental caries, unspecified]Onset: 02-13-2021 Resolved: 09-84-3411TjevcwgjVawdgrcr; including migraine (13 sources)Migraine; Translations: [Migraine, unspecified, not intractable, without status migrainosus]Onset: 797541-22-7622MnmpzwuSrgjkivlyccgv and screening for infectious disease (5 sources)Contact with and (suspected) exposure to other viral communicable diseases; Translations: [Suspected clinical finding]Onset: 03-27-2021 Resolved: 82-42-7722OwoezdsqNpwedfqah (4 sources)Influenza due to Influenza A virus; Translations: [Influenza due to other identified influenza virus with other respiratory manifestations] 01-02-6263AmazdehkYyozltuvygyp injury (1 source)Concussion without loss of consciousness, subsequent encounterEpisodic Mood disorders (5 sources)Bipolar I disorder; Translations: [Bipolar disorder, unspecified] Onset: 357971-08-8826MwywglyDoldu aftercare (1 source)Other detention (current) drug therapy; Translations: [OTH LONG-TERM CURRENT DRUG THERAPY]Onset: 58-54-6260UjnxniccRklon gastrointestinal disorders (1 source)Constipation, unspecified; Translations: [CONSTIPATION UNSPECIFIED] Onset: 06-40-5119WcptucapQizwd nervous system disorders (14 sources)Carpal tunnel syndrome of left wrist; Translations: [Carpal tunnel syndrome, left upper limb]Onset: 863445-83-4733UnkpmowTvzsw nervous system disorders (1 source)Carpal tunnel syndrome, left upper limb; Translations: [Carpal tunnel syndrome]57-03-9547CpwcrymIklkw upper respiratory disease (14 sources)Seasonal allergy; Translations: [Other seasonal allergic rhinitis] ChronicOther upper respiratory infections (8 sources)Acute pharyngitis, unspecified; Translations: [Acute upper respiratory infection, unspecified]EpisodicOvarian cyst (1 source)Unspecified ovarian cyst, right side; Translations: [UNSPECIFIED OVARIAN CYST RIGHT SIDE]Onset: 96-58-0111IqfbqwvoZkxsgyq and strains (1 source)Strain of muscle, fascia and tendon at neck level, initial encounter EpisodicSubstance-related disorders (1 source)Nicotine dependence, cigarettes, uncomplicated; Translations: [NICOTINE DEPEND CIGARETTES UNCOMP]Onset: 95-14-4090UqxeurdBgnqghqsnwxs (1 source)Establish CareOnset: 10-13-2024 Past or Other Problems Problem ClassificationProblemDateDocumented DateEpisodic/ChronicAllergic reactions (1 source)Allergic contact dermatitis, unspecified causeOnset: 04-01-2021 Resolved: 44-27-1910JabtdumtJiirrjwbrxncp and procreative management (5 sources)Encounter for other general counseling and advice on contraception; Translations: [Contraception status]Onset: 11-27-2021 Resolved: 12-67-9376XlrudytaZybj disorders (12 sources)Mood disordersOnset: 10-29-2023 Resolved: 606415-00-0368Wgxsgr and vomiting (1 source)NauseaOnset: 04-01-2021 Resolved: 40-40-1073GpxfjtxfVyuzrdaxbqh deficiencies (10 sources)Cobalamin deficiency; Translations: [Deficiency of other specified B group vitamins]Onset: 332580-30-2998PjcgrxwxFbogt female genital disorders (1 source)History of abnormal cervical Papanicolaou smear ; Translations: [Personal history of other diseasesof the female genital tract]10-29-2023 EpisodicOther nutritional; endocrine; and metabolic disorders (2 sources)Abnormal weight loss; Translations: [Abnormal weight loss]Onset: 04-01-2021 Resolved: 65-18-4695NbtiutxgVelte nutritional; endocrine; and metabolic disorders (12 sources)Unintentional weight loss; Translations: [Abnormal weight loss] Onset: 053295-85-4562PdxwmlqnUkyga screening for suspected conditions (not mental disorders or infectious disease) (10 sources)Decreased vitamin D; Translations: [Other specified abnormal findings of blood chemistry]Onset: 867199-90-2124QkcemsrrQwrmbzokv (except that caused by tuberculosis or sexually transmitted disease) (1 source)Pneumonia, unspecified organismOnset: 05-21-2021 Resolved: 22-94-2861BqqifwjcJnqqbemc codes; unclassified (11 sources)Nicotine-filled electronic cigarette user; Translations: [Tobacco use]Onset: 199591-70-9963JboolmddXmhedwvsh and history of mental health and substance abuse codes (1 source)Standardized adult depression screening tool completed ; Translations: [Encounter for screening fordepression]53-83-3620SvevaizcUxlcrkbsfqwq (1 source)Contact with and (suspected) exposure to covid-19 Z20.822 Results Test NameValueInterpretationReference RangeFacilityCBC WITH AUTO DIFFERENTIALon 62-03-6552IJOMJRPQX ABSOLUTE COUNT (10*3/UL) BY AUTOMATED COUNT0.0 10*3/uLNormal 0.0-0.2POhioHealth [facility]ide [facility] Ambulatory PPGComment on above:Performed By: #### CBCA #### [facility] ([facility]) [address] [place] [address] VIRBASOPHILS RELATIVE PERCENT BY AUTOMATED COUNT0.6 %Normal [facility] Ambulatory PPGComment on above:Performed By: #### CBCA #### [facility] ([facility] [facility] [address] [place] [address] VIRCELLAVISION DIFFERENTIAL TYPEAUTOMATED DIFFERENTIALNormal [facility] Ambulatory PPGComment on above:Performed By: #### CBCA #### [facility] ([facility]) [address] [place] [address] VIREosinophils (Bld) [#/Vol]0.3 10*3/uLNormal0.0-0.4ProC[facility] Ambulatory PPGComment on above:Performed By: #### CBCA #### [facility] ([facility]) [address] [place] [address] VIREOSINOPHILS RELATIVE PERCENT BY AUTOMATED COUNT4.7 %Normal [facility] Ambulatory PPGComment on above:Performed By: #### CBCA #### [facility] ([facility]) [address] [place] [address] VIRErythrocyte distribution width (RBC) [Ratio]13.6 %Normal 11.5-15[facility] Ambulatory PPGComment on above:Performed By: #### CBCA #### [facility] ([facility]) [address] [place] [address] VIRHematocrit (Bld) [Volume fraction]39.5 %Qfakfu77-09QqnOfgbyl Hospital Ambulatory PPGComment on above:Performed By: #### CBCA #### [facility] ([facility]) [address] [place] [address] VIRHemoglobin (Bld) [Mass/Vol]13.3 g/zFMfabid07.7-15.5POhioHealth [facility] Ambulatory PPGComment on above:Performed By: #### CBCA #### [facility] ([facility]) [address] [place] [address] VIRLYMPHOCYTES ABSOLUTE COUNT (10*3/UL) BY AUTOMATED COUNT2.0 10*3/uLNormal1.0-3.5POhioHealth Riverside Methodist Hospital Ambulatory PPGComment on above:Performed By: #### CBCA #### [facility] ([facility]) [address] [place] [address] VIRLYMPHOCYTES RELATIVE PERCENT BY AUTOMATED COUNT32.1 %Normal [facility] Ambulatory PPGComment on above:Performed By: #### CBCA #### [facility] ([facility]) [address] [place] [address] VIRMCH (RBC) [Entitic mass]30.2 ikZzsioq03-45QiiPgvaec Hospital Ambulatory PPGComment on above:Performed By: #### CBCA #### [facility] ([facility]) [address] [place] [address] VIRMCHC (RBC) [Mass/Vol]33.6 g/dQCkqrrx82-35ZedQjxxyv Hospital Ambulatory PPGComment on above:Performed By: #### CBCA #### [facility] ([facility]) [address] [place] [address] VIRMCV (RBC) [Entitic vol]90 kEAimswp12-720WytTycjex Hospital Ambulatory PPGComment on above:Performed By: #### CBCA #### [facility] ([facility]) [address] [place] [address] VIRMONOCYTES ABSOLUTE COUNT (10*3/UL) BY AUTOMATED COUNT0.4 10*3/uLNormal0.0-0.9[facility] Ambulatory PPGComment on above:Performed By: #### CBCA #### [facility] ([facility]) [address] [place] [address] VIRMONOCYTES RELATIVE PERCENT BY AUTOMATED COUNT6.6 %Normal [facility] Ambulatory PPGComment on above:Performed By: #### CBCA #### [facility] ([facility]) [address] [place] [address] VIRNEUTROPHILS ABSOLUTE COUNT BY AUTOMATED COUNT3.5 10*3/uL Normal1.5-6.6[facility] Ambulatory PPGComment on above:Performed By: #### CBCA #### [facility] ([facility]) [address] [place] [address] VIRNEUTROPHILS RELATIVE PERCENT BY AUTOMATED COUNT56.0 %Normal [facility] Ambulatory PPGComment on above:Performed By: #### CBCA #### [facility] ([facility]) [address] [place] [address] VIRPlatelet mean volume (Bld) [Entitic vol]10.5 fLNormal7-12 [facility] Ambulatory PPGComment on above:Performed By: #### CBCA #### [facility] ([facility]) [address] [place] [address] VIRPlatelets (Bld) [#/Vol]253 10*3/lJLspgqn798-262DqiRazzmw Hospital Ambulatory PPGComment on above:Performed By: #### CBCA #### [facility] ([facility]) [address] [place] [address] VIRRBC COUNT4.39 X10E12/LNormal3.8-5.2POhioHealth Riverside Methodist Hospital Ambulatory PPGComment on above:Performed By: #### CBCA #### [facility] ([facility]) [address] [place] [address] VIRWBC (Bld) [#/Vol]6.2 10*3/uLNormal4-11[facility] Ambulatory PPGComment on above:Performed By: #### CBCA #### [facility] ([facility]) [address] [place] [address] VIRCBC auto differentialon 39-87-9765Npaczczyg (Bld) [#/Vol]0 10*3/uL0.0 - 0.2 10*3/uLSouthview Medical CenterBasophils/100 WBC (Bld)0.6 % [facility] Medical CenterDifferential cell count method Nom (Bld)AUTOMATED DIFFERENTIALSouthview Medical CenterEosinophils (Bld) [#/Vol]0.3 10*3/uL0.0 - 0.4 10*3/uLSouthview Medical CenterEosinophils/100 WBC (Bld)4.7 %[facility]view Medical CenterErythrocyte distribution width (RBC) [Ratio]13.6 %11.5 - 15 %[facility] Medical CenterHematocrit (Bld) [Volume fraction]39.5 %35 - 47 %[facility] Medical CenterHemoglobin (Bld) [Mass/Vol]13.3 g/dL11.7 - 15.5 g/dLSouthview Medical CenterLymphocytes (Bld) [#/Vol]2 10*3/uL1.0 - 3.5 10*3/uLWood County Hospital System Lymphocytes/100 WBC (Bld)32.1 %[facility]view Medical CenterMCH (RBC) [Entitic mass] 30.2 pg27 - 34 pgPWayne HealthCare Main CampusMCHC (RBC) [Mass/Vol]33.6 g/dL32 - 36 g/dLSouthview Medical CenterMCV (RBC) [Entitic vol]90 fL80 - 100 [facility] HospitalMonocytes (Bld) [#/Vol]0.4 10*3/uL0.0 - 0.9 10*3/uLSouthview Medical CenterMonocytes/100 WBC (Bld)6.6 %[facility] Medical CenterNeutrophils (Bld) [#/Vol]3.5 10*3/uL1.5 - 6.6 10*3/uLSouthview Medical CenterNeutrophils/100 WBC (Bld)56 %[facility] Medical CenterPlatelet mean volume (Bld) [Entitic vol]10.5 fL7 - 12 [facility] HospitalPlatelets (Bld) [#/Vol]253 10*3/[facility] HospitalRBC (Bld) [#/Vol]4.39 10*6/[facility] HospitalWBC LM Ql (Sput)6.2 [facility] HospitalCOMPREHENSIVE METABOLIC PANELon 05-39-3209Dcxsakx [Mass/Vol]4.6 g/dLNormal3.2-5.3POhioHealth Riverside Methodist Hospital Ambulatory PPGComment on above:Performed By: #### CMP #### [facility] ([facility]) [address] [place] [address] VIRALP [Catalytic activity/Vol]54 U/MEjokah44-484LjpLezxjd Hospital Ambulatory PPGComment on above:Performed By: #### CMP #### [facility] ([facility]) [address] [place] [address] VIRALT [Catalytic activity/Vol]11 U/LNormal<=31POhioHealth Riverside Methodist Hospital Ambulatory PPGComment on above:Performed By: #### CMP #### [facility] ([facility]) [address] [place] [address] VIRAnion gap [Moles/Vol]8 mmol/LNormal5-15[facility] Ambulatory PPGComment on above:Performed By: #### CMP #### [facility] ([facility]) [address] [place] [address] VIRAST [Catalytic activity/Vol]14 U/LNormal<=41ProC[facility] Clinic [facility] Ambulatory PPGComment on above:Performed By: #### CMP #### [facility] ([facility]) [address] [place] [address] VIRBilirubin [Mass/Vol]0.4 mg/dLNormal0.3-1.2POhioHealth Riverside Methodist Hospital Ambulatory PPGComment on above:Performed By: #### CMP #### [facility] ([facility]) [address] [place] [address] VIRCalcium [Mass/Vol]9.3 mg/dLNormal8.5-10.5POhioHealth Riverside Methodist [facility] Ambulatory PPGComment on above:Performed By: #### CMP #### [facility] ([facility]) [address] [place] [address] VIRChloride [Moles/Vol]102 mmol/RJuxmjg56-218RieLcsykg Hospital Ambulatory PPGComment on above:Performed By: #### CMP #### [facility] ([facility]) [address] [place] [address] VIRCO2 [Moles/Vol]28 mmol/JFjnbyc93-36NilRftxfy Hospital Ambulatory PPGComment on above:Performed By: #### CMP #### [facility] ([facility]) [address] [place] [address] VIRCreatinine [Mass/Vol]0.47 mg/dLNormal0.40-1.00[facility] Ambulatory PPGComment on above:Result Comment: METHOD TRACEABLE TO IDMS STANDARDPerformed By: #### CMP #### [facility] ([facility]) [address] [place] [address] VIREGFR (CKD-EPI) NON-RACE DEPENDENT>^90Normal>=60ProCleveland Clinic Mentor Hospital Ambulatory PPGComment on above:Result Comment: Reported eGFR is based on the CKD-EPI 2020 equation that does not use a race coefficient.Performed By: #### CMP #### [facility] ([facility]) [address] [place] [address] VIRGlucose [Mass/Vol]81 mg/oGSjjphu09-31YgcKpbtjw Hospital Ambulatory PPGComment on above:Performed By: #### CMP #### [facility] ([facility]) [address] [place] [address] VIRPotassium [Moles/Vol]4.0 mmol/LNormal3.5-5.0[facility] Ambulatory PPGComment on above:Performed By: #### CMP #### [facility] ([facility]) [address] [place] [address] VIRProtein [Mass/Vol]7.0 g/dLNormal6.0-8.0[facility] Ambulatory PPGComment on above:Performed By: #### CMP #### [facility] ([facility]) [address] [place] [address] VIRSodium [Moles/Vol]138 mmol/JNcoufr321-321MpyZkhpgv Hospital Ambulatory PPGComment on above:Performed By: #### CMP #### [facility] ([facility]) [address] [place] [address] VIRUrea nitrogen [Mass/Vol]8 mg/dLNormal5-23[facility] Ambulatory PPGComment on above:Performed By: #### CMP #### [facility] ([facility]) [address] [place] [address] VIRComprehensive metabolic panelon 40-09-3722Lmnwplh [Mass/Vol] 4.6 g/dL3.2 - 5.3 g/dLProMedica Health SystemALP [Catalytic activity/Vol]54 U/L 39 - 130 U/LProMedica Health SystemALT No additional P-5'-P [Catalytic activity/Vol]11 U/LNINF - 31 U/LProMedica Health SystemAnion gap [Moles/Vol]8 mmol/L5 - 15 mmol/LProMedica Health SystemAST [Catalytic activity/Vol]14 U/LNINF - 41 U/[facility]ica Health SystemBilirubin [Mass/Vol]0.4 mg/dL0.3 - 1.2 mg/dL ProMLake Region Hospital SystemCalcium [Mass/Vol]9.3 mg/dL8.5 - 10.5 mg/dLWood County Hospital SystemChloride [Moles/Vol]102 mmol/L98 - 109 mmol/[facility] Health SystemCO2 [Moles/Vol]28 mmol/L22 - 32 mmol/[facility] SystemCreatinine [Mass/Vol]0.47 mg/dL0.40 - 1.00 mg/dLSouthview Medical CenterComment on above: METHOD TRACEABLE TO IDMS STANDARDEGFR Non-Race Dependent- [facility] The King's DaughtersComment on above:Reported eGFR is based on the CKD-EPI 2020 equation that does not use a race coefficient. Glucose [Mass/Vol]81 mg/dL65 - 99 mg/dLSouthview Medical CenterInterpretation and review of laboratory resultsNormalSouthview Medical CenterPotassium [Moles/Vol]4 mmol/L3.5 - 5.0 mmol/[facility] Health SystemProtein [Mass/Vol]7 g/dL6.0 - 8.0 g/dLWood County Hospital SystemSodium [Moles/Vol]138 mmol/L134 - 146 mmol/[facility] SystemUrea nitrogen [Mass/Vol]8 mg/dL5 - 23 mg/dLSouthview Medical Center ProMHolzer HospitalTHYROID PROFILE INCLUDES TSH FT4on 90-56-3942Knhj T4 [Mass/Vol]0.85 ng/dLNormal0.61-1.60[facility] Ambulatory PPGComment on above:Performed By: #### THYR #### [facility] ([facility]) [address] [place] [address] VIRTSH0.80 uIU/mLNormal0.49-4.67[facility] Ambulatory PPGComment on above:Performed By: #### THYR #### [facility] ([facility]) [address] [place] [address] VIRThyroid profile includes TSH FT4on 62-59-3568Zmip T4 [Mass/Vol]0.85 ng/dL0.61 - 1.60 ng/dLWood County Hospital SystemInterpretation and review of laboratory resultsNoFirstHealth [facility] Qn0.8 m[IU]/L [facility] HospitalVITAMIN B12on 33-55-1045Veryyzgem (Vitamin B12) [Mass/Vol]372 pg/jWKmyvdg231-983WinBfvrma Hospital Ambulatory PPG Comment on above:Performed By: #### B12 #### [facility] ([facility]) [address] [place] [address] VIRVITAMIN D 25 HYDROXYon 08-87-1899ANZFBDK D 25 HYD TOT25.3 ng/mLLow30.0-100.0[facility] Ambulatory PPGComment on above:Order Comment: Vitamin D status 25 [place] Vitamin D Deficiency <20 ng/mL Insufficiency 20-29 ng/mL Sufficiency 30-100 ng/mL Toxicity >100 ng/mL NOTE: A pediatric reference range has not been established by the regional coordinator of this kit. The [place] [employer] recommends a Vitamin D level of = or >20ng/mL in infants and children.Performed By: #### VITD #### [facility] ([facility]) [address] [place] [address] VIRVitamin B12on 40-32-0831Hdtmhnxch (Vitamin B12) [Mass/Vol] 372 pg/mL180 - 914 pg/mLSouthview Medical CenterInterpretation and review of laboratory resultsNormalHoly Redeemer HospitalVitamin D 25 hydroxyon 074295-cawooxujlukyak D3 [Mass/Vol]25.3 ng/mLLow30.0 - 100.0 ng/mLSouthview Medical CenterInterpretation and review of laboratory results AbnormalSouthview Medical CenterVitamin D status 25 [place] Vitamin D Deficiency <20 ng/mL Insufficiency 20-29 ng/mL Sufficiency 30-100 ng/mL Toxicity >100 ng/mL NOTE: A pediatric reference range has not been established by the regional coordinator of this kit. The [place] [employer] recommends a Vitamin D level of = or >20ng/mL in infants and children.[facility] SystemUrine Cultureon 95-88-7940Dxloafkb identified Cx Nom (U)No Growth 2 Days PERFORMED BY: [place] [address] PATHOLOGIST [employer] DRIVER DAO EDWARDS M.D.NormalThe [facility] Physician GroupComment on above: Performed By: #### CUU #### [place] [address] USAPOCT , urineon 35-19-1729Tbnb HCG ( test) Ql (U)NegativeSouthview Medical CenterInterpretation and review of laboratory resultsNormalHoly Redeemer HospitalNo Panel InformationOrdered By: Ashley Newsome on 48-12-0060Verpz Strep (POC)[facility] HospitalCOVID + FLU Quick Testingon 49-83-5492RMUH-CoV-2 (COVID- 19) RNA ETHAN+probe Ql (Unsp spec)NegativeEliza Corporation Other COVID + FLU Quick TestingNegativeHealthagen Other COVID + FLU Quick Testingon 90-15-1816LLJE-CoV-2 (COVID-19) RNA ETHAN+probe Ql (Unsp spec)NegativeHealthagen Other COVID + FLU Quick TestingnegtiveHealthagen Other COVID + FLU Quick TestingNegativeHealthagen Other Quick Strepon 04-21-2023S. pyogenes Org specific cx Ql (Throat)NegativeEliza Corporation Other Quick StrepNoEliza Corporation Other AMYLASEon 62-26-1722Cxybdwx [Catalytic activity/Vol]19 U/LCritically svg26-831Ull [facility] HospitalComment on above:Performed By: #### CMP, LIPA, PIYUSH #### [facility] [address] [address] [address] Robson Munoz AUTO DIFFon 76-79-9316LYHS #0.0 103/ulNormal0.0-0.1The [facility] Mentor HospitalComment on above:Performed By: #### CBC #### [facility] [address] [place] [address] Dr. Robson MarinoBasophils/100 WBC (Bld)0.2 %Normal0.2-2.0[place] Comment on above:Performed By: #### CBC #### [facility] [address] [place] [address] Dr. Robson Mcnally #0.1 103/ulNormal0.0-0.7The [facility] Ment[facility] HospitalComment on above: Performed By: #### CBC #### [facility] [address] [place] [address] Dr. Robson Pittsosinophils/100 WBC (Bld)0.7 %Critically low0.9-7.0The [facility] Ment[facility] HospitalComment on above:Performed By: #### CBC #### [facility] [address] [place] [address] Dr. Robson Pittsrythrocyte distribution width (RBC) [Ratio]13.2 %Ackjgo23.0-15.0 CentervilleComment on above:Performed By: #### CBC #### [facility] [address] [place] [address] Dr. Robson MarinoHematocrit (Bld) [Volume fraction]38.3 %Fjhbev36.0-48.0CentervilleComment on above:Performed By: #### CBC #### [facility] [address] [address] [address] Robson MarinoHemoglobin (Bld) [Mass/Vol]13.0 g/hAKiulgs54.0-16.0The [facility] HospitalComment on above:Performed By: #### CBC #### [facility] [address] [place] [address] Dr. Robson Johnson #0.06 10e3/ulCritically high0.00-0.03The [facility] Comment on above:Performed By: #### CBC #### [facility] [address] [place] [address] Dr. Robson Johnson %0.7 %Critically high0.0-0.5The [facility] Ment[facility] HospitalComment on above:Performed By: #### CBC #### [facility] [address] [place] [address] Dr. Robson Morley #1.6 103/ulNormal1.2-3.8The [facility] Ment[facility] HospitalComment on above:Performed By: #### CBC #### [facility] [address] [place] [address] Dr. Robson Carterhocytes/100 WBC (Bld)17.4 %Critically low20.5-60.0The [facility] Ment[facility] HospitalComment on above:Performed By: #### CBC #### [facility] [address] [place] [address] Dr. Robson NicoleUAL DIFF REQNONormalThe [facility] Ment[facility] HospitalComment on above: Performed By: #### CBC #### [facility] [address] [place] [address] Dr. Robson Tamez (RBC) [Entitic mass]29.6 nnDzzbim87.7-34.0The [facility] HospitalComment on above:Performed By: #### CBC #### [facility] [address] [place] [address] Dr. Robson Tamez (RBC) [Mass/Vol]33.9 g/yQGdwpcb13.9-35.2The [facility] HospitalComment on above:Performed By: #### CBC #### [facility] [address] [address] [address] Robson TamezV (RBC) [Entitic vol]87.2 wJEaqtqc09.0-99.0The [facility] HospitalComment on above:Performed By: #### CBC #### [facility] [address] [place] [address] Dr. Robson Prater #0.5 103/ulNormal0.3-0.8The [facility] Ment[facility] HospitalComment on above:Performed By: #### CBC #### [facility] [address] [place] [address] Dr. Robson Garciaocytes/100 WBC (Bld)5.1 %Normal1.7-12.0The [facility] Comment on above:Performed By: #### CBC #### [facility] [address] [place] [address] Dr. Robson Zapien #6.8 103/ulCritically high1.4-6.5The [facility] Comment on above:Performed By: #### CBC #### [facility] [address] [place] [address] Dr. Robson Ibarrautrophils/100 WBC (Bld)75.9 %Critically high43.0-75.0The [facility] Ment[facility] HospitalComment on above:Performed By: #### CBC #### [facility] [address] [place] [address] Dr. Robson Elylet mean volume (Bld) [Entitic vol]9.7 fLNormal9.5-13.5The [facility] Ment[facility] HospitalComment on above:Performed By: #### CBC #### [facility] [address] [place] [address] Dr. Robson MarinoPLT377 103/jkGfmpiy544-878Emp [facility] HospitalComment on above: Performed By: #### CBC #### [facility] [address] [place] [address] Dr. Robson MarinoRBC4.39 106/ulNormal4.20-5.40The [facility] Ment[facility] HospitalComment on above:Performed By: #### CBC #### [facility] [address] [place], [place] [address] Dr. Robson MarinoWBC9.0 103/ulNormal4.0-11.0The [facility] Mentor HospitalComment on above: Performed By: #### CBC #### [facility] [address] [place], [place] [address] Dr. Robson MarinoCT ABD/PELV W CONon 97-52-2797AK ABD/PELV W CONEXAMINATION: CT ABD/PELV W CON HISTORY: GENERALIZED ABDOMINAL [...] Electronically authenticated by: Scott CALVO Date: 2022-06-29 00:12NormalThe [facility] URINE PROFILEon 09-36-1141Yalzfbeci Ql (U)NegativeNormal NEGATIVEThe [facility] Mentor HospitalComment on above:Performed By: #### ERUR #### [facility] [address] [address] [address] Robson Bolden (U)CLEARNormalCLEARCentervilleComment on above: Performed By: #### ERUR #### [facility] [address] [address] [address] Robson Alvares (U)YELLOWNormalYELLOWCentervilleComment on above: Performed By: #### ERUR #### [facility] [address] [place] [address] Dr. Robson Tarango micrscopic examination will be performed if indicated. NormalCentervilleComment on above:Performed By: #### ERUR #### [facility] [address] [place] [address] Dr. Robson MarinoGlucose Ql (U)NegativeNormalNEGATIVECentervilleComment on above:Performed By: #### ERUR #### [facility] [address] [place] [address] Dr. Robson MarinoHemoglobin Ql (U)NegativeNormalNEGATIVECenterville Comment on above:Performed By: #### ERUR #### [facility] [address] [place] [address] Dr. Robson MarinoKetones Ql (U)NegativeNormalNEGATIVECentervilleComment on above:Performed By: #### ERUR #### [facility] [address] [place] [address] Dr. Robson MarinoLEUKOCYTESNegativeNormalNEGATIVECentervilleComment on above:Performed By: #### ERUR #### [facility] [address] [place] [address] Dr. Robson MarinoNitrite Ql (U)NegativeNormalNEGATIVECentervilleComment on above:Performed By: #### ERUR #### [facility] [address] [place] [address] Dr. Robson MarinopH (U)6.0 [pH]Normal5-9CentervilleComment on above: Performed By: #### ERUR #### [facility] [address] [place] [address] Dr. Robson MarinoSPEC GRAVITY1.001Elizul9.005-<=1.025The [facility] Mentor HospitalComment on above:Performed By: #### ERUR #### [facility] [address] [place] [address] Dr. Robson Samano PROTEINNegativeNormalNEGATIVE/ TRACEThe [facility] Comment on above:Performed By: #### ERUR #### [facility] [address] [address] [address] Robson Barraza MICRO INDNOT INDICATEDAtrium Health Wake Forest Baptist [facility] Medical Centere [facility] HospitalComment on above:Performed By: #### ERUR #### [facility] [address] [place] [address] Dr. Robson Camposbilinogen Qn (U)0.2 {Skinny'U}/dLNormal0.2 - 1.0The [facility] HospitalComment on above:Performed By: #### ERUR #### [facility] [address] [place] [address] Dr. Robson MarinoLIPASEon [id number] [Catalytic activity/Vol]68.0 U/L Critically low73.0-393.0The [facility] HospitalComment on above:Performed By: #### CMP, LIPA, PIYUSH #### [facility] [address] [place] [address] Dr. Robson MarinoPREGNANCY URon [id number], QUALNegativeNormalNEGATIVEThe [facility] HospitalComment on above:Performed By: #### PREGU #### [facility] [address] [place] [address] Dr. Robson MarinoPROF 14(COMP METB)on [id number] [Mass/Vol]3.5 g/dLNormal 3.4-5.0The [facility] HospitalComment on above:Performed By: #### CMP, LIPA, PIYUSH #### [facility] [address] [place] [address] Dr. Robson MarinoAlbumin/Globulin [Mass ratio]1.2 {ratio}NormalThe Drew HospitalComment on above:Performed By: #### CMP, LIPA, PIYUSH #### [facility] [address] [address] [address] Robson Davis [Catalytic activity/Vol]62 U/QQiebwj66-012Waz [facility] HospitalComment on above:Performed By: #### CMP, LIPA, PIYUSH #### [facility] [address] [place] [address] Dr. Robson Vee [Catalytic activity/Vol]20 U/KTggdqb26-78Lpv [facility] HospitalComment on above:Performed By: #### CMP, LIPA, PIYUSH #### [facility] [address] [place] [address] Dr. Robson Saini gap [Moles/Vol]11.2 mmol/LNormalThe [facility] Comment on above:Performed By: #### CMP, LIPA, PIYUSH #### [facility] [address] [place] [address] Dr. Robson Henson [Catalytic activity/Vol]10 U/LCritically icc36-49Ksg [facility] HospitalComment on above:Performed By: #### CMP, LIPA, PIYUSH #### [facility] [address] [place] [address] Dr. Robson MarinoBilirubin [Mass/Vol]0.3 mg/dLNormal0.2-1.0[place] Comment on above:Performed By: #### CMP, LIPA, PIYUSH #### [facility] [address] [place] [address] Dr. Robson MarinoCalcium [Mass/Vol]8.6 mg/dLNormal8.5-10.1[place] Comment on above:Performed By: #### CMP, LIPA, PIYUSH #### [facility] [address] [place] [address] Dr. Robson Finkide [Moles/Vol]102 mmol/DMeynrg36-146VexCent[place] Comment on above:Performed By: #### CMP, LIPA, PIYUSH #### [facility] [address] [place] [address] Dr. Robson MarinoCO2 [Moles/Vol]27.8 mmol/BLnhume12.0-32.0The [facility] Comment on above:Performed By: #### RANDY LIPPat, PIYUSH #### [facility] [address] [address] [address] Robson MarinoCreatinine [Mass/Vol]0.61 mg/dLNormal0.55-1.02The [facility] HospitalComment on above:Performed By: #### RANDY LIPA, PIYUSH #### [facility] [address] [address] [address] Robson PittsGFR-AF SAMOAN>60Normal>=60The [facility] HospitalComment on above:Performed By: #### RANDY LIPA, PIYUSH #### [facility] [address] [place] [address] Dr. Robson PittsGFR-NON AF SAMOAN>60Normal>=60The [facility] HospitalComment on above:Performed By: #### RANDY LIPA, PIYUSH #### [facility] [address] [place] [address] Dr. Robson MarinoGlobulin (S) [Mass/Vol]3.0 g/dLNormalThe [facility] HospitalComment on above:Performed By: #### RANDY LIPA, PIYUSH #### [facility] [address] [address] [address] Robson MarinoGlucose [Mass/Vol]122 mg/dLCritically widl22-540Cur [facility] HospitalComment on above:Performed By: #### RANDY, LIPA, PIYUSH #### [facility] [address] [address] [address] oRbson MarinoPotassium [Moles/Vol]3.0 mmol/LCritically low3.5-5.1The [facility] HospitalComment on above:Performed By: #### CMP, LIPA, PIYUSH #### [facility] [address] [place] [address] Dr. Robson MarinoProtein [Mass/Vol]6.5 g/dLNormal6.4-8.2The [facility] Comment on above:Performed By: #### CMP, LIPA, PIYUSH #### [facility] [address] [address] [address] Robson MarinoSodium [Moles/Vol]138 mmol/CJqzdny640-121Acw [facility] Comment on above:Performed By: #### CMP, LIPA, PIYUSH #### [facility] [address] [address] [address] Robson MarinoUrea nitrogen [Mass/Vol]7.0 mg/dLNormal7.0-18.0The [facility] HospitalComment on above:Performed By: #### CMP, LIPA, PIYUSH #### [facility] [address] [address] [address] Robson Ervin nitrogen/Creatinine [Mass ratio]11.5 mg/mgNormalThe [facility] HospitalComment on above:Performed By: #### RANDY, LIPA, PIYUSH #### [facility] [address] [address] [address] Robson MarinoCOVID/FLU/RSV RT-PCRon 45-04-2911PBUY-CoV-2 (COVID-19) RNA ETHAN+probe Ql (Unsp spec)NegativeEllerslie InternetArray Other COVID/FLU/RSV RT-PCRNegativeNocass medical center [employer] Other quick Strepon 03-28-2022. pyogenes Org specific cx Ql (Throat)NegativeEllerslie [employer] Other Quick [employer]El[employer] Other A1C HEMOGLOBINon 04-77-2733WjL5o (Bld) [Mass fraction] 5.5 %[facility] Other HbA1c (Bld) [Mass fraction]on 60-21-1475S0I HEMOGLOBIN [facility] Other Telephone Encounteron 62-04-1338Igxdunkiliybk Authentication Interface Message TextUnfortunately we do not have much before the end of the year. Urgent appointments are saved for walk-ins and cancer patient's only. I scheduled Ms. Medrano for March 14. Left voicemail asking her to call back should appointment date/time not work for her. Thank you.NormalMargot Mascoma SystemTelephone Encounteron [id number] Authentication Interface Message TextPatient called in stating she has been throwing up this morning and will be unable to make her appointment today. Patient informed we are currently booking consultations into April, but patient said she cannot wait that long for her consultation as she booked this appointment back in September. Please call patient o advise at [phone]. Thank you!NormalMargot Mascoma SystemUrinalysis - AUTOMATEDon 04-01-2021 Appearance (U)clearHealthagen Other Bilirubin Ql (U)[employer] Other Color (U)yellowHealthagen Other Glucose Ql (U)[employer] Other Hemoglobin Ql (U)[employer] Other Ketones Ql (U)[employer] Other Leukocyte esterase Test strip Ql (U)[employer] Other Nitrite Ql (U)[employer] Other pH (U)6.5 [pH][place] [employer] Other Protein Ql (U)[employer] Other Specific gravity (U) [Rel density]1.015[place] [employer] Other Urobilinogen (U) [Mass/Vol]0.2 mg/dLiCAD [employer] Other Urinalysis - [employer] Other Vital Signs Date TimeVital SignValuePerforming ThrqojrexYbuxghxu52-03-0698 08:18-0500Body gopuod230 cmMaya Ramirez ACCOUNT CONTACT ASSOCIATE-SOFTWARE TESTER Work Phone: [phone]11-10-2025 08:18-0500Body mass index (BMI) [Ratio]19.1 kg/x5XdxhrfMaya Ramirez ACCOUNT CONTACT ASSOCIATE-SOFTWARE TESTER Work Phone: [phone]11-10-2025 08:18-0500Body fgoubfhycct57.19 [degF]Maya Pinedouessler ACCOUNT CONTACT ASSOCIATE-SOFTWARE TESTER Work Phone: [phone]11-10-2025 08:18-0500Body yatyeu74.9 kgMaya Pateller ACCOUNT CONTACT ASSOCIATE-SOFTWARE TESTER Work Phone: [phone]11-10-2025 08:18-0500Diastolic blood umkzuzel62 mm[Hg]Maya Pinedouessler ACCOUNT CONTACT ASSOCIATE-SOFTWARE TESTER Work Phone: [phone]11-10-2025 08:18-0500Heart rate 72 /minMaya Ramirez ACCOUNT CONTACT ASSOCIATE-SOFTWARE TESTER Work Phone: [phone]11-10-2025 08:18-0500Systolic blood crxqlwyj547 mm[Hg]Maya Pinedouessler ACCOUNT CONTACT ASSOCIATE-SOFTWARE TESTER Work Phone: [phone]08-13-2025 07:35-0400Body cmMaya Ramirez ACCOUNT CONTACT ASSOCIATE-SOFTWARE TESTER Work Phone: [phone]08-13-2025 07:35-0400Body mass index (BMI) [Ratio]18.57 kg/o6JhmoicMaya Ramirez ACCOUNT CONTACT ASSOCIATE-SOFTWARE TESTER Work Phone: [phone]08-13-2025 07:35-0400Body wttddcnyzwo00.6 [degF]Maya Pinedouessler ACCOUNT CONTACT ASSOCIATE-SOFTWARE TESTER Work Phone: [phone]08-13-2025 07:35-0400Body .54 kgMaya Pinedouessler ACCOUNT CONTACT ASSOCIATE-SOFTWARE TESTER Work Phone: [phone]08-13-2025 07:35-0400Diastolic blood ljwfelil99 mm[Hg]Maya Pinedouessler ACCOUNT CONTACT ASSOCIATE-SOFTWARE TESTER Work Phone: [facility]08-13-2025 07:35-0400Heart rate 66 /minMaya Pateller ACCOUNT CONTACT ASSOCIATE-SOFTWARE TESTER Work Phone: [facility]08-13-2025 07:35-8064VsZ3% (BldA) [Mass fraction]99 %Maya Pinedouessler ACCOUNT CONTACT ASSOCIATE-SOFTWARE TESTER Work Phone: [facility]08-13-2025 07:35-0400Systolic blood mifplpnn570 mm[Hg]Maya Ashley ACCOUNT CONTACT ASSOCIATE-SOFTWARE TESTER Work Phone: [facility]07-16-2025 15:30-0400Body cjxygq038 cmMaya Pinedouessler ACCOUNT CONTACT ASSOCIATE-SOFTWARE TESTER Work Phone: [facility]07-16-2025 15:30-0400Body mass index (BMI) [Ratio]18.85 kg/s5LcikwoMaya Pinedouessler ACCOUNT CONTACT ASSOCIATE-SOFTWARE TESTER Work Phone: [facility]07-16-2025 15:30-0400Body .6 [degF]Maya Pinedouessler ACCOUNT CONTACT ASSOCIATE-SOFTWARE TESTER Work Phone: [facility]07-16-2025 15:30-0400Body lvhoki11.26 kgMaya Pinedouessler ACCOUNT CONTACT ASSOCIATE-SOFTWARE TESTER Work Phone: [facility]07-16-2025 15:30-0400Diastolic blood njnaxlrb66 mm[Hg]Maya Ashley ACCOUNT CONTACT ASSOCIATE-SOFTWARE TESTER Work Phone: [facility]07-16-2025 15:30-0400Heart rate 70 /minMaya Pinedouessler ACCOUNT CONTACT ASSOCIATE-SOFTWARE TESTER Work Phone: [facility]07-16-2025 15:30-7897MlJ7% (BldA) [Mass fraction]98 %Maya Ramirez ACCOUNT CONTACT ASSOCIATE-SOFTWARE TESTER Work Phone: [facility]07-16-2025 15:30-0400Systolic blood fcjuswee86 mm[Hg]Maya Ramirez ACCOUNT CONTACT ASSOCIATE-SOFTWARE TESTER Work Phone: [facility]06-04-2025 10:01-0400Body mass index (BMI) [Ratio]19.73 kg/t4TwyaoxMaya Ramirez ACCOUNT CONTACT ASSOCIATE-SOFTWARE TESTER Work Phone: [facility]06-04-2025 10:010400Body .4 [degF]Maya Pinedouessler ACCOUNT CONTACT ASSOCIATE-SOFTWARE TESTER Work Phone: [facility]06-04-2025 10:01-0400Body gyctlk66.53 kgMaya Ramirez ACCOUNT CONTACT ASSOCIATE-SOFTWARE TESTER Work Phone: [facility]06-04-2025 10:01-0400Diastolic blood pwwzbufj10 mm[Hg]Maya Ramirez ACCOUNT CONTACT ASSOCIATE-SOFTWARE TESTER Work Phone: [facility]06-04-2025 10:01-0400Heart rate 78 /minMaya Ramirez APRN-SOFTWARE TESTER Work Phone: [facility]06-04-2025 10:01-7071TtP4% (BldA) [Mass fraction]98 %Maya Ramirez ACCOUNT CONTACT ASSOCIATE-SOFTWARE TESTER Work Phone: [facility]06-04-2025 10:01-0400Systolic blood qcgjoqoq238 mm[Hg]Maya Pateller ACCOUNT CONTACT ASSOCIATE-SOFTWARE TESTER Work Phone: [facility]02-15-2025 10:330500Body mvdnka532.02 [facility]20[facility] 10:33-0500Body mass index (BMI) [Ratio]20.7 kg/j9HxxvuljtwDayton Children'S Hospital02-15-2025 10:33-0500Body ioelimoaewx26.5 [degF][facility]02-15-2025 10:33-0500Body zciwqk97.18 kgDay[facility]02-15-2025 10:33-0500Diastolic blood nucaewrr47 mm[Hg][facility] 06-26-2024 10:33-0500Heart rate95 /minDayton [facility]'S Hospital 06-26-2024 10:33-4095FyU2% (BldA) [Mass fraction]96 %[facility]02-15-2025 10:33-0500Systolic blood lhxyrafv581 mm[Hg][facility]08-07-2024 13:09-0400Body [facility]08-07-2024 13:09-0400Body mass index (BMI) [Ratio]21.61 kg/m2[facility]08-07-2024 13:09-0400Body .34 kgDe[facility]ess [facility]08-07-2024 13:09-0400Diastolic blood ngvdxpar03 mm[Hg] [facility]08-07-2024 13:09-0400Systolic blood pressure 102 mm[Hg][facility]06-19-2024 13:04-0400Body mabiib371 [facility]06-19-2024 13:04-0400Body mass index (BMI) [Ratio]21.29 kg/m2[facility]06-19-2024 13:04-0400Body ghwwru28.52 [facility]St[facility]06-[facility]-2024 13:04-0400Diastolic blood zicrmisk06 mm[Hg][facility]06-19-2024 13:04-0400 Systolic blood mopettja780 mm[Hg][facility]05-22-2024 11:15-0400Body xrmmiv187 [facility]05-22-2024 11:15-0400Body mass index (BMI) [Ratio]21.36 kg/m2[facility]05-22-2024 11:15-0400Body ebazyt95.7 [facility] 10-[facility]-2023 11:15-0400Diastolic blood szxiohhv92 mm[Hg][facility]05-22-2024 11:15-0400Systolic blood jfbjuspi53 mm[Hg][facility]05-21-2024 17:36-0400Body rvkcot147.02 cmDay[facility]05-21-2024 17:36-0400Body mass index (BMI) [Ratio]21.7 kg/b5AcevlabibDayton Children'S Hospital05-21-2024 17:36-0400Body xdgqsymcrzn27.7 [degF][facility]05-21-2024 17:36-0400Body myjsvj98.56 kg [facility]05-21-2024 17:36-0400Diastolic blood naqhuflv97 mm[Hg][facility]05-21-2024 17:36-0400Heart rate88 /min [facility]05-21-2024 17:36-0400Respiratory rate18 /min [facility]05-21-2024 17:36-1053PjY2% (BldA) [Mass fraction]96 %[facility]05-21-2024 17:36-0400Systolic blood tdctanrd004 mm[Hg][facility]01-22-2024 17:30-0500 Body dcytvp697.93 cmAmanda Swetha Other [facility] Other 01-22-2024 17:30-0500Body mass index (BMI) [Ratio] 20.76 kg/q9Dssnhe Swetha Other [employer] Other 01-22-2024 17:30-0500Body rihvyzvztws42.9 [degF]Kristie Swetha Other [facility] Other 01-22-2024 17:30-0500Body eseqgq01.43 kgAmanda Swetha Other [facility] Other 01-22-2024 17:30-0500Respiratory rate16 /minAmanda Swetha Other [facility] Other 01-22-2024 17:30-3263WrZ0% (BldA) [Mass fraction]97 % Kristie Swetha Other [facility] Other 12-11-2023 17:15-0500Body aejsyc489.93 cmAmanda Swetha Other [facility] Other 12-11-2023 17:15-0500Body mass index (BMI) [Ratio] 20.41 kg/c1Rygukt Swetha Other [facility] Other 12-11-2023 17:15-0500Body eclibumkdnf65.4 [degF]Kristie Swetha Other [facility] Other 12-11-2023 17:15-0500Body hhdkog19.52 kgAmanda Swetha Other [facility] Other 12-11-2023 17:15-0500Diastolic blood mm[Hg] Kristie Swetha Other [facility] Other 12-11-2023 17:15-0500Respiratory rate18 /minAmanda Swetha Other [facility] Other 12-11-2023 17:15-5658UaA9% (BldA) [Mass fraction]99 % Kristie Swetha Other [facility] Other 12-11-2023 17:15-0500Systolic blood xozjcjbs465 mm[Hg] Kristie Posada Other [facility] Other 07-26-2023 12:40-0400Body jmywle481.93 cmPamelpat Prieto Other [employer] Other 07-26-2023 12:40-0400Body mass index (BMI) [Ratio]21 kg/n6Lcpckgcas Prieto Other [facility] Other 07-26-2023 12:40-0400Body xryuqnyxhmq07.2 [degF]Natalie Ida Other [facility] Other 07-26-2023 12:40-0400Body jcpnix79.07 kgPacas Prieto Other [facility] Other 07-26-2023 12:40-0400Diastolic blood efivkaio15 mm[Hg] Natalie Ida Other [facility] Other 07-26-2023 12:40-0400Respiratory rate18 /minNatalie Ida Other [facility] Other 07-26-2023 12:40-9172ReU0% (BldA) [Mass fraction]100 % Natalie Iad Other [facility] Other 07-26-2023 12:40-0400Systolic blood aklvikkb677 mm[Hg] Natalie Ida Other [facility] Other 11-17-2022 16:05-0500Body wrxqro311.93 cmAflorencio Truong Other [employer] Other 11-17-2022 16:05-0500Body mass index (BMI) [Ratio] 24.56 kg/h0Feowe Truong Other [employer] Other 11-17-2022 16:05-0500Body nzgkyalcnfe67.8 [degF]China Truong Other [facility] Other 11-17-2022 16:05-0500Body .41 kgChina Truong Other [facility] Other 11-17-2022 16:05-0500Respiratory rate18 /minCotykristian Truong Other [facility] Other 11-17-2022 16:05-2280DrN6% (BldA) [Mass fraction]98 % China Truong Other [facility] Other 11-03-2022 15:30-0400Body oqvyin769.93 cmSnahomy Magana Other [employer] Other 11-03-2022 15:30-0400Body mass index (BMI) [Ratio] 24.22 kg/p9Kxgfuftelkris Magana Other [employer] Other 11-03-2022 15:30-0400Body ovklcobrxyg32.2 [degF] Ofelia Magana Other [employer] Other 11-03-2022 15:30-0400Body nlbtme16.5 kgStkris Magana Other [facility] Other 11-03-2022 15:30-0400Diastolic blood mm[Hg] Ofelia Ruedaault Other [facility] Other 11-03-2022 15:30-0400Respiratory rate18 /minSnahomy Ruedaault Other [facility] Other 11-03-2022 15:30-9422CeF7% (BldA) [Mass fraction]98 % Ofelia Ruedaault Other [facility] Other 11-03-2022 15:30-0400Systolic blood qrfudhho617 mm[Hg] Ofelia Ruedaault Other [facility] Other 11-03-2022 11:45-0400Body wxlpet946.93 cmMattmimi Amaya Other [facility] Other 11-03-2022 11:45-0400Body mass index (BMI) [Ratio]24.3 kg/r4Umjwlzpmimi Amaya Other [facility] Other 11-03-2022 11:45-0400Body lduexu28.73 kgMatthezonia Amaya Other [facility] Other 11-03-2022 11:45-0400Diastolic blood cskkohxz77 mm[Hg] Mateo Amaya Other [facility] Other 11-03-2022 11:45-0400Respiratory rate18 /minMattmimi Amaya Other [facility] Other 11-03-2022 11:45-8340RvV6% (BldA) [Mass fraction]97 % Mateo Amaya Other [facility] Other 11-03-2022 11:45-0400Systolic blood fjfermet335 mm[Hg] Mateo Amaya Other [facility] Other 09-24-2022 11:00-0400Body .93 cmSnahomy Magana Other [facility] Other 09-24-2022 11:00-0400Body mass index (BMI) [Ratio] 22.49 kg/h6Gayusewnvkris Magana Other [facility] Other 09-24-2022 11:00-0400Body rxwnjosairi07.2 [degF] Ofelia Magana Other [facility] Other 09-24-2022 11:00-0400Body oplcro67.97 kgStkris Magana Other [facility] Other 09-24-2022 11:00-0400Diastolic blood lutfgabl98 mm[Hg] Ofelia Magana Other [facility] Other 09-24-2022 11:00-0400Respiratory rate18 /minSnahomy Magana Other [facility] Other 09-24-2022 11:00-3256FxK7% (BldA) [Mass fraction]100 % Ofelia Magana Other [facility] Other 09-24-2022 11:00-0400Systolic blood xdolaytg906 mm[Hg] Ofelia Ruedaault Other [employer] Other 07-19-2022 18:45-0400Body czgedg599.93 cmSnahomy Ruedaault Other [employer] Other 07-19-2022 18:45-0400Body mass index (BMI) [Ratio] 22.83 kg/b0Whadxmzdv Estela Other [employer] Other 07-19-2022 18:45-0400Body zssoztjcwnz59.1 [degF] Ofelia Estela Other [facility] Other 07-19-2022 18:45-0400Body qsgxta98.88 kgStkris Magana Other [employer] Other 07-19-2022 18:45-0400Diastolic blood dclaxwyi28 mm[Hg] Ofelia Estela Other [employer] Other 07-19-2022 18:45-0400Respiratory rate18 /minSnahomy Estela Other [facility] Other 07-19-2022 18:45-3494AuE2% (BldA) [Mass fraction]99 % Ofelia Estela Other [facility] Other 07-19-2022 18:45-0400Systolic blood opuwygeq858 mm[Hg] Ofelia Estela Other [facility] Other 01-10-2022 11:00-0500Body deqbzv460.93 Mary Grace Estela Other [employer] Other 01-10-2022 11:00-0500Body mass index (BMI) [Ratio] 22.83 kg/p3Hsqiudfss Estela Other [employer] Other 01-10-2022 11:00-0500Body .3 [degF] Ofelia Estela Other [employer] Other 01-10-2022 11:00-0500Body .88 kgStkris Estela Other [employer] Other 01-10-2022 11:00-0500Diastolic blood pvnxmruf00 mm[Hg] Ofeliadavid Magana Other [employer] Other 01-10-2022 11:00-0500Respiratory rate18 /minSkrissshayladel Estela Other [facility] Other 01-10-2022 11:00-3305OaM4% (BldA) [Mass fraction]97 % Ofeliadavid Magana Other [employer] Other 01-10-2022 11:00-0500Systolic blood acphczal692 mm[Hg] Ofelia Estela Other [facility] Other 11-21-2021 10:30-0500Body ihuphu082.93 Mary Grace Estela Other [facility] Other 11-21-2021 10:30-0500Body mass index (BMI) [Ratio] 23.87 kg/o2Qxytbgplf Estela Other [employer] Other 11-21-2021 10:30-0500Body fugddaufqox31.2 [degF] Ofelia Ruedaault Other [employer] Other 11-21-2021 10:30-0500Body rspfal29.6 kgStkris Ruedaault Other [employer] Other 11-21-2021 10:30-0500Diastolic blood iuuulymb80 mm[Hg] Ofelia Estela Other [facility] Other 11-21-2021 10:30-0500Respiratory rate18 /minSnahomy Estela Other [facility] Other 11-21-2021 10:30-3507ZeG4% (BldA) [Mass fraction]100 % Ofelia Ruedaault Other [facility] Other 11-21-2021 10:30-0500Systolic blood tljvjxny210 mm[Hg] Ofelia Estela Other [facility] Other 10-05-2021 14:40-0400Body .93 cmSnahomy Estela Other [facility] Other 10-05-2021 14:40-0400Body mass index (BMI) [Ratio] 25.77 kg/n3Anycgfwfp Estela Other [facility] Other 10-05-2021 14:40-0400Body .2 [degF] Ofelia Magana Other [employer] Other 10-05-2021 14:40-0400Body dukrqb93.59 kgStkris Magana Other [employer] Other 10-05-2021 14:40-0400Diastolic blood chjwpojr33 mm[Hg] Ofelia Magana Other [employer] Other 10-05-2021 14:40-0400Respiratory rate18 /minSnahomy Magana Other [facility] Other 10-05-2021 14:40-5258AdO2% (BldA) [Mass fraction]99 % Ofelia Magana Other [employer] Other 10-05-2021 14:40-0400Systolic blood qtezrlob694 mm[Hg] Ofelia Magana Other [facility] Other Encounters Encounter DateEncounter TypeCare ProviderFacilityStart: 03-21-2025 End: 80-07-1742Exxnbp outpatient visit 25 minutesMaya Ramirez ACCOUNT CONTACT ASSOCIATE-SOFTWARE TESTER Work Phone: [facility] Physicians Family MedicineComment on above: Heart palpitations (Primary Dx); Anxiety; Bipolar 1 disorder ([facility]Start: 03-21-2025 End: 47-00-8312vppkrfipzfZSRADO A [facility]LER[facility] Start: 03-15-2025 End: 64-56-5868Gsvcau OnlyMaya Ramirez ACCOUNT CONTACT ASSOCIATE-SOFTWARE TESTER Work Phone: [facility] Family MedicineStart: 03-14-2025 End: 87-98-8422BaovmkVmaznn A Schuessler ACCOUNT CONTACT ASSOCIATE-SOFTWARE TESTER Work Phone: [facility]icians Family MedicineComment on above: AnxietyStart: 02-07-2025 End: 21-47-1624VcthqlWtynfgMaya Ramirez APRN-SOFTWARE TESTER Work Phone: [facility] Family MedicineComment on above: AnxietyStart: 12-22-2024 End: 43-36-7045Xwvhyn outpatient visit 15 minutesJuddeneen Ramirez ACCOUNT CONTACT ASSOCIATE-SOFTWARE TESTER Work Phone: [facility]icians Family MedicineComment on above: Heart palpitations (Primary Dx); Mild intermittent asthma without complication; Weight loss, unintentionalStart: 12-22-2024 End: 75-00-2813qzxnqskgfcIXGRJG A [facility] Start: 12-06-2024 End: 86-04-6970Tuukyw-up encounterMerteressa Martinez Physicians Family MedicineComment on above:Echo complete W/O contrastStart: 12-02-2024 End: 47-72-2539bcizkdsycuSIYCOM A [facility] HospitalStart: 11-26-2024 End: 22-53-1751kmxahkongdRBBANJ A [facility] HospitalStart: 11-24-2024 End: 88-19-9946Sypunf outpatient visit 25 minutesJuddeneen Ramirez ACCOUNT CONTACT ASSOCIATE-SOFTWARE TESTER Work Phone: [facility]icians Family MedicineComment on above: Mild intermittent asthma without complication (Primary Dx); Heart palpitations; AnxietyStart: 11-24-2024 End: 88-06-0907xvrnuyalpuANMDOS A [facility] Start: 11-16-2024 End: 63-07-7656gjmxkejewnUGYVGI A [facility] HospitalStart: 10-15-2024 End: 63-11-8944Fqkjsiexk encounterSharmin Duran CMAProMedica Physicians Family MedicineStart: 10-14-2024 End: 81-65-2329Dtxcld OnlyJuddeneen Ramirez ACCOUNT CONTACT ASSOCIATE-SOFTWARE TESTER Work Phone: [facility] Physicians Family MedicineComment on above: Vitamin B 12 deficiency (Primary Dx); Low serum vitamin DStart: 10-13-2024 End: 02-66-2457Ckyddv outpatient new 30 minutesMaya Ramirez APRN-SOFTWARE TESTER Work Phone: [facility] Physicians Family MedicineComment on above: Mild intermittent asthma without complication (Primary Dx); Anxiety; Weight loss, unintentional; Heart palpitations; Need for vaccinationStart: 10-13-2024 End: 15-85-7897fgujsbpmczDBYJTM A [facility] Start: 08-30-2024 End: 76-99-5268baskaoakzhVazxbnu MeyerFacility:[facility] Start: 08-30-2024 End: 80-94-0007Kdrgyjvq ReferredMargaretville Memorial Hospitalzonia Slade PA-C Work Phone: [facility]-LAB Path Spec [facility]elle HospStart: 06-26-2024 End: 16-04-2779hmltxqnuhhNidkhqmqgTwin City Hospital Work Phone: Start: 06-26-2024 End: 19-91-6958Vreyjks encounter procedureNovant Health Medical [facility] Work Phone: Start: 12-17-2023 End: 82-15-0797Tmooqv outpatient visit 15 minutesP[facility] MidwifeReg[facility] Women[facility] Services - CyldeComment on above:General counselling and advice on contraception (Primary Dx); Anxiety and depression; Bipolar 1 disorder ([facility]); Encounter for initial prescription of contraceptive pillsStart: 10-29-2023 End: 41-27-6212Bjgjbufzh for gynecological examination (general) (routine) without abnormal findingsInova [facility] Work Phone: Start: 10-29-2023 End: 68-71-5151Bgjgzzk encounter procedureSt[facility] Start: 10-29-2023 End: 04-52-1629Xhaejwhj preventive med est patient 18-39 yrsPalliancehealth durant – [facility] Ob Crew Manager [facility] - CyldeComment on above:Well woman exam with routine gynecological exam (Primary Dx); Pap smear, as part of routine gynecological examination; Standardized adult depression screening tool completed; History of abnormal cervical Pap smearStart: 10-01-2023 End: 54-54-2175Eqchyb outpatient visit 15 minutesMarcum And Wallace [facility] Ob MidwifeProMedica Women's Services - CyldeComment on above:Encounter for initial prescription of injectable contraceptive (Primary Dx); General counseling and advice for contraceptive managementStart: 09-30-2023 End: 36-09-3892ocqfuifbbiLajzjgqnoGeorgetown Behavioral Hospital Work Phone: Start: 09-30-2023 End: 87-40-7854Rpvvuxc encounter procedureNovant Health Medical [facility] Work Phone: Start: 06-02-2023 End: 36-00-9887iwsrlmubfqQwyewl Swetha Other [employer] Other Start: 61-12-9961Kkdcfui encounter procedureAmanda GrobFPG Urgent Care ClydeStart: 04-21-2023 End: 90-21-4448aibhxwajtmTetzks Swetha Other [employer] Other Start: 32-05-1226Hvcccv outpatient visit 15 minutes Kristie GrobFPG Urgent Care ClydeStart: 12-04-2022 End: 88-57-3077onwoufjdniGvvhqr Dymond Other [employer] Other Start: 34-06-3110Mgoiac outpatient visit 15 minutes Natalie Louis [facility] ClydeStart: 06-28-2022 End: 06-59-1361cqosdglkgcOQLAVIXAF BREAULTFacility:P8Acxcr: 06-24-2022 End: 10-67-4943wclkdnfmaqGavrxaild Breault Other [employer] Other start: 05-74-1254Lppzqwzxk encounterStepdavid Magana [facility] ClydeStart: 03-28-2022 End: 81-31-3916cyoultdrfuUlicr Keller Other [employer] Other Start: 33-30-2691Flztfc outpatient visit 25 minutes China TruongFPG Urgent Care ClydeStart: 03-14-2022 End: 14-83-1500uftysrqdiuSssztpf Widmer Other [employer] Other Start: 92-63-5025Lwvilk outpatient visit 15 minutes Mateo AmayaFPG Family Medicine SanduskyStart: 02-02-2022 End: 41-71-0147beosutmxsaBeahlyraf Breault Other [employer] Other Start: 70-40-6607Aeqgzc outpatient visit 15 minutes Ofeliadavid MaganaFPG Family Medicine ClydeStart: 58-96-2334Xfnuvixuo encounterTo Be AssignedMetroHealth Oral SurgeryStart: 11-27-2021 End: 99-05-0802kzpmdagckrRrqrccwmx Estela Other [employer] Other Start: 14-14-3198Wiprno outpatient visit 15 minutes Ofeliadavid MaganaFPG Family Medicine ClydeStart: 08-03-2021 End: 13-99-5571ipnxzlmowmBfcwnzzxx Estela Other [employer] Other Start: 50-75-3457Znvikinjf encounterStepdavid Magana [facility] ClydeStart: 05-21-2021 End: 67-83-6709juvjkgwvjmCrqoualww Estela Other [employer] Other Start: 20-34-9293Qqkcxe outpatient visit 25 minutes Ofelia BreaultFPG [facility] Medicine ClydeStart: 04-01-2021 End: 88-28-0646joutevvvvbXfbhrmzjl Breault Other [employer] Other Start: 55-45-7281Gecfqf outpatient visit 15 minutes Ofelia Koo [facility] ClydeStart: 03-27-2021 End: 60-52-9153feasljxnxzFxlwelfwk Breault Other [employer] Other Start: 32-80-5398Zgndtjrkg encounterStepdavid Magana [facility] ClydeStart: 59-03-3888Knvrnu outpatient visit 15 minutes Ofelia [facility] Procedures DateProcedureProcedure DetailPerforming ClinicianStart: 43-33-3456Jkdji depression screening assessmentMaya Ramirez ACCOUNT CONTACT ASSOCIATE-[facility] Work Phone: Start: 47-50-0011Vouklp-up visitFollow-upJUDDENEEN TURCIOStart: 92-04-7835Wxwtw depression screening assessmentMaya Ramirez ACCOUNT CONTACT ASSOCIATE-[facility] Work Phone: Start: 18-72-0644Fqokclghlccai metabolic panelJuddeneen Ramirez ACCOUNT CONTACT ASSOCIATE-[facility] Work Phone: Start: 54-81-6172Lnsnj depression screening assessment Maya Ramirez ACCOUNT CONTACT ASSOCIATE-[facility] Work Phone: Start: 38-30-4984Nrzwg depression screening assessment [facility] MidwifeStart: 23-15-3205Irclzcrdymp observation [Identifier] in Cervix by Cyto stainMarcum And Wallace [facility] Hospital MidwifeStart: 08-21-5050Wbhpy test visual color cmprsn Ju Wall ACCOUNT CONTACT ASSOCIATE-[facility] Work Phone: Start: 17-81-3263Orpyp Strep (POC)Start: 08-21-2022 Microscopic observation [Identifier] in Cervix by Cyto stainMarcum And Wallace [facility] Hospital Crew Manager Plan of Treatment DateCare ActivityDetailAuthorStart: 35-39-1309Whzxopsg (RZV) Vaccine (1 of 2) Shingles (RZV) Vaccine (1 of 2)[facility] NetworkroHealthStart: 10-70-5584Wnikxxwfj for malignant neoplasm of cervixPap SmearWood County Hospital SystemStart: 03-21-2026 Adult BMI ScreeningAdult BMI ScreeningWood County Hospital SystemStart: 03-21-2026 Depression ScreeningDepression ScreeningWood County Hospital SystemStart: 12-22-2025 Adult BMI ScreeningAdult BMI ScreeningWood County Hospital SystemStart: 12-22-2025 Depression ScreeningDepression ScreeningWood County Hospital SystemStart: 12-22-2025 Tobacco ScreeningTobacco ScreeningWood County Hospital SystemStart: 11-98-8159Hgcyd BMI ScreeningAdult BMI ScreeningWood County Hospital SystemStart: 44-80-9256Eikmtkn ScreeningTobacco ScreeningWood County Hospital SystemStart: 58-11-6612Unjbq BMI ScreeningAdult BMI ScreeningWood County Hospital SystemStart: 32-26-8522Foclkcgfst ScreeningDepression ScreeningWood County Hospital SystemStart: 34-84-2280Nxfvqzz ScreeningTobacco ScreeningWood County Hospital SystemStart: 43-24-4688Ncirrkgig for malignant neoplasm of cervixPap SmearWood County Hospital SystemStart: 05-16-2025 End: 96-00-8401Ayqpvdi encounter jwcavroqg14/05/2026 8:20 AM EST Office Visit [facility] [address] [place] [address] Maya Ramirez, ACCOUNT CONTACT ASSOCIATE-SOFTWARE TESTER [address] [facility] [address], [place], [place] [id number] JúniorEast Tennessee Children's Hospital, Knoxvilletart: 03-21-2025 End: 11-82-7245Jpzakvv encounter ervrdqksj28/10/2025 8:20 AM EST Office Visit Júnior[address] [place] [address] Maya Ramirez, ACCOUNT CONTACT ASSOCIATE-SOFTWARE TESTER [address], [facility] [address] [facility] MedicineStart: 98-31-0154Telsbwlrw vaccinationInfluenza VaccineProHolzer Medical Center – Jackson SystemStart: 12-22-2024 End: 32-72-6359Vwmevcw encounter zhpukpvgr82/13/2025 7:40 AM EDT Office Visit [facility] Medicine [address] [place] [address] Maya Ramirez, ACCOUNT CONTACT ASSOCIATE-SOFTWARE TESTER [address], [facility] [address] [facility] MedicineStart: 83-69-7738Dgfhp BMI ScreeningAdult BMI ScreeningWood County Hospital SystemStart: 11-24-2024 End: 63-89-6358Nwnaddf encounter cgvpjqoiw92/16/2025 3:40 PM EDT Office Visit [facility] Medicine [address] [place] [address] Maya Ramirez, ACCOUNT CONTACT ASSOCIATE-SOFTWARE TESTER [address], [facility] [address] [facility] MedicineStart: 11-24-2024 End: 46-99-0257Mhta complete W/O contrastEcho complete W/O contrast Echocardiography Routine Heart palpitations Expected: 11/24/2024, Expires: 11/24/2025[facility] Work Phone: Comment on above:Expected: 11/24/2024, Expires: 11/24/2025Start: 11-24-2024 End: 64-08-1023Zmyomf monitor studyHolter monitor 24-48 hour Cardiac Services Routine Heart palpitations Expected: 11/24/2024, Expires: 11/24/2025ProLawrence Medical Center Health SystemComment on above:Expected: 11/24/2024, Expires: 11/24/2025Start: 65-33-4274Tifqn BMI ScreeningAdult BMI ScreeningNovant Health/NHRMCtart: 26-65-8229Drkkhoaabk ScreeningDepression ScreeningNovant Health/NHRMCtart: 24-96-4351Junzoxd ScreeningTobacco ScreeningNovant Health/NHRMCtart: 68-32-6574Ueiju BMI ScreeningAdult BMI ScreeningNovant Health/NHRMCtart: 53-58-8029Wrtgcve ScreeningTobacco ScreeningNovant Health/NHRMCtart: 23-49-9896Bkkyd cultureTogus VA Medical Centertart: 08-30-2024 Bacteria identified in Urine by CultureUrine [facility] Hospitaltart: 24-83-7128Lmrwurfyl vaccinationInfluenza VaccineNovant Health/NHRMCtart: 12-17-2023 End: 50-72-6176gqwskmhnvq45/07/2024 1:00 PM EDT Nurse Injection [facility] - [facility] [address] [place] [address] [facility]'s Services - CyldeStart: 10-21-2023 End: 67-77-9940Jnzqbof encounter vdcxuzcvz67/11/2024 11:30 AM EDT Office Visit [facility] Services - [facility] [address] [place] [address] NrzWdjhfi Women's Services - [facility] HospitaldeStart: 03-14-2022 End: 35-74-3107Nkjzmyx encounter yosflkweh94/03/2022 Office Visit Oral Surgery Tracy Cruz DMD, MD [address] [place] [address] [facility] Oral SurgeryStart: 59-82-2743Vuucvwcyd vaccinationInfluenza Vaccine (#1)[facility] HealthStart: 61-94-1120Ijecjiykw for malignant neoplasm of cervixPap SmearMetroHealthStart: 26-13-0038IPaC,Tdap and Td Vaccines (1 - Tdap)DTaP,Tdap and Td Vaccines (1 - Tdap)[facility]/NHRMCtart: 76-95-9752Hpdvcdl vaccinationTetanus (Td or Tdap) Booster MetroHealthStart: 80-22-6469Ehxcjoldb C screeningHepatitis C AntibodyMetroHealth Start: 73-97-7237Hviyfab + diphtheria + acellular pertussis vaccine (product) Tdap BoosterMetroHealthStart: 89-85-6326PXJ screeningHIV TestMetroHealthStart: 79-36-8315Wmsadsgxzb ScreeningDepression ScreeningProHolzer Medical Center – Jackson SystemStart: 54-79-5767DUPYA-19 Vaccine (#1)COVID-19 Vaccine (#1)[facility] End: 89-10-9934Ideqjempl/GC by PCR ThinPrep fluidChlamydia/GC by PCR ThinPrep fluid Microbiology Routine Pap smear, as part of routine gynecological examination 1 Occurrences starting 10/29/2023 until 10/28/2024[facility] HospitalPAIEON [facility] Medical CenterComment on above:1 Occurrences starting 10/29/2023 until 10/28/2024 End: 70-78-5002Rggzvdbkbwhrv procedure, preparation of smear, genital sourcePap Smear Pathology and Cytology Routine Pap smear, as part of routine gynecological examination History of abnormal cervical Pap smear 1 Occurrences starting 10/29/2023 until 10/28/2024[employer] Work Phone: Comment on above:1 Occurrences starting 10/29/2023 until 10/28/2024 End: 94-12-5401XZC 12 leadECG 12 lead ECG Routine Heart palpitations 1 Occurrences starting 10/13/2024 until 10/13/2025[employer] Work Phone: Comment on above:1 Occurrences starting 10/13/2024 until 10/13/2025 End: 52-82-6794Vhho risk HPV w/genoHigh risk HPV w/carmita Lab Routine Pap smear, as part of routine gynecological examination History ofabnormal cervical Pap smear 1 Occurrences starting 10/29/2023 until 10/28/2024[facility] Hillcrest HospitalConsignd System Comment on above:1 Occurrences starting 10/29/2023 until 10/28/2024 Immunizations Immunization DateImmunizationNotesCare CchmavabRpladpcx21-39-7683Ooezltl 30 mg/mlStephanie Estela Other [facility] [employer] Other Payers DatePayer CategoryPayerPolicy [id number]-iyr [id number] 2023Medicaid HMO [id number] Health Insurance [facility] [id number] 2022-Present [phone] [address] [place] [address] [id number] 2022Medicaid [id number] 2.840.1.125974.3.579.2.593 [id number] 2.840.1.676563.3.579.2.884209-95-4930Aaveemx [id number] 2.840.1.584242.3.57[id number] 2.16840.1.035007.3.57[id number] 2.840.1.962953.3.57[id number] 2.16.840.1.413191.3.57[id number] 2.16840.1.662651.3.57[id number] 2.840.1.388326.3.579.2.1286 [id number] [id number] 06.27.840.1.014702.3.579.2.531 Social History DateTypeDetailFacilityUnknown if ever smokedEllerslie [employer] Other Start: 06-14-2020 End: 24-25-3220Eiq Assigned At [facility] [employer] Other Tobacco smoking status NHISTobacco smoking consumption unknownMetroHealthStart: 12-33-5618Lke Assigned At BirthNot on fileMetroHealth Start: 05-12-2011 End: 87-10-3454Kfmiigo smoking status NHISSmoker (finding)[facility] CenterStart: 94-91-5110Gss Assigned At [facility] Orthopedic HospitalFeSt. Mary's Medical Center, [place] Campustart: 44-44-3046Egibghj smoking status NHISEx-smokerWood County Hospital SystemStart: 05-12-2011 End: 67-54-6020Ayytmks of tobacco useCigarette SmokerProHolzer Medical Center – [facility] System History of tobacco useTobacco Use Types Packs/Day Years Used Date Smoking Tobacco: Former Cigarettes 0.3 10 2011 Vaping/E-cigarettes Smokeless Tobacco: NeverProHolzer Medical Center – Jackson SystemStart: 06-14-2020 End: 72-90-8924Hbuzztsnoy smoked current (pack per day) - Reported0.3ProMeddecatur morgan hospital Health SystemStart: 72-12-8375Wjtmueb use and exposureSmokeless tobacco non-user ProMedicMahnomen Health Center SystemStart: 10-01-2023 End: 01-47-6014Dqempscte beverage intakeCurrent non-drinker of alcohol (finding) [facility] CenterChildcareUnknowRiverside Shore Memorial Hospitaltart: 12-15-2014 End: 75-04-6010VvoUylnre (finding)[facility] Medical Centertart: 10-13-2024 End: 94-62-9984Xevcvzfdx beverage intakeCurrent drinker of alcohol (finding) [facility]/NHRMCtart: 65-13-4259Enbdzje CommentoccasionallySouthview Medical Center Clinical Notes 02-13-2021 to 03-21-2025 Note Date & LdpvRucyKznfayzo22-42-2170 History of Present illness Narrative* Maya Ramirez, BOONE-SOFTWARE TESTER - 03/21/2025 8:20 AM EST Subjective CC: heart palpations Patient ID: Natalya Kincaid is a 34 y.o. female. Follow-up Natalya presents for heart palpations. She relates they improved over time, but came back about a month ago. States she has a lot less anxiety than previously, and financial things are better, so has no explanation for the increase in heart palpitations. She was taking Atenolol 12.5 mg at hs, but relates a hard time cutting this tablet. Also when took a full tablet her BP dropped to 88/54, States also has a history of bipolar disorder with the anxiety. Has had a hard time getting into counseling. States most waits are 2 months. Relates believed was taking hydroxyzine 100 mg twice a day, which seemed to work better than her tablets. The following portions of the patient's history were reviewed and updated as appropriate: allergies, current medications, past family history, past medical history, past social history, past surgicalhistory, problem list, and medication reconciliation was completed including current medication andpost discharge medication. Review of Systems Constitutional: Negative. HENT: Negative. Eyes: Negative. Respiratory: Negative. Cardiovascular: Positive for palpitations. Gastrointestinal: Negative. Musculoskeletal: Negative. Skin: Negative. Neurological: Negative. Hematological: Negative. Psychiatric/Behavioral: Positive for agitation and sleep disturbance. Negative for self-injury and suicidal ideas. The patient is nervous/anxious. Objective Physical Exam Vitals and nursing note reviewed. Constitutional: Appearance: Normal appearance. She is well-developed and normal weight. HENT: Head: Normocephalic and atraumatic. Right Ear: Hearing and external ear normal. Left Ear: Hearing and external ear normal. Nose: Nose normal. No rhinorrhea. Mouth/Throat: Lips: [place]. Mouth: Mucous membranes are moist. Pharynx: Oropharynx is clear. Uvula midline. No oropharyngeal exudate. Eyes: General: Lids are normal. Conjunctiva/sclera: Conjunctivae normal. Cardiovascular: Rate and Rhythm: Normal rate and regular rhythm. Pulses: Normal pulses. Heart sounds: Normal heart sounds. Pulmonary: Effort: Pulmonary effort is normal. Breath sounds: Normal breath sounds and air entry. Abdominal: General: There is no distension. Palpations: Abdomen is soft. Tenderness: There is no abdominal tenderness. Musculoskeletal: General: Normal range of motion. Cervical back: Normal range of motion and neck supple. Lymphadenopathy: Cervical: No cervical adenopathy. Skin: General: Skin is warm and dry. Neurological: General: No focal deficit present. Mental Status: She is alert and oriented to person, place, and time. Psychiatric: Attention and Perception: Attention normal. Mood and Affect: Mood is anxious. Speech: Speech normal. Behavior: Behavior normal. Behavior is cooperative. Thought Content: Thought content does not include homicidal or suicidal ideation. Thought content does not include homicidal or suicidal plan. Cognition and Memory: Cognition and memory normal. Assessment/Plan Checked with pharmacy who stated Hydroxyzine does not come in 100 mg capsules. Will also DC the Atenolol, and start propranolol 10 mg bid. [facility] DC Atenolol Start hydroxyzine 25 mg tid prn Start Propranolol 10 mg bid Referral placed to [facility] Refuses flu vaccine Follow up in 2 months for anxiety Natalya was seen today for follow-up. Diagnoses and all orders for this visit: Heart palpitations - propranoloL (INDERAL) 10 mg tablet; Take 1 tablet (10 mg total) by mouth in the morning and 1 tablet (10 mg total) before bedtime. - hydrOXYzine (ATARAX) 25 mg tablet; Take 1 tablet (25 mg total) by mouth 3 (three) times a day as needed for anxiety. Anxiety - Ambulatory referral to [facility] ([facility]); Future - hydrOXYzine (ATARAX) 25 mg tablet; Take 1 tablet (25 mg total) by mouth 3 (three) times a day as needed for anxiety. Bipolar 1 disorder ([facility]) - Ambulatory referral to Behavioral Health (Non-[facility]); Future LUIS Gill 03/21/25 1254 documented in this encounterSouthview Medical Center11-03-2025 Miscellaneous Notes* Telephone Encounter - Sharmin Duran CMA - 03/14/2025 9:44 PM EST Medication was not received. documented in this encounterSouthview Medical Center11-03-2025 Telephone encounter Note* Telephone Encounter - Sharmin Duran CMA - 03/14/2025 9:44 PM EST Medication was not received. [facility]08-13-2025 History of Present illness Narrative* LUIS Gill - 12/22/2024 7:40 AM EDT Subjective CC: Palpitations Patient ID: Natalya Kincaid is a 34 y.o. female. Follow-up Natalya is here following up for heart palpitations. She was having palpitations in the evening so severe it was preventing her from sleeping. Was also having the palpitations multiple times throughout the day. Today, she relates having the palpitations only about four times a week. She has been taking Hydroxyzine in the evening and first thing in the morning, also taking atenolol in the evening. Overall, is doing much better. She is concerned with weight loss. States over a year ago was 161 pounds, but was also taking medications for behavioral health. Once she stopped these her weight came off. 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 The following portions of the patient's history were reviewed and updated as appropriate: allergies, current medications, past family history, past medical history, past social history, past surgicalhistory, problem list, and medication reconciliation was completed including current medication andpost discharge medication. Review of Systems Constitutional: Negative. HENT: Negative. Eyes: Negative. Respiratory: Negative. Cardiovascular: Positive for palpitations. Improved Gastrointestinal: Negative. Musculoskeletal: Negative. Skin: Negative. Neurological: Negative. Hematological: Negative. Psychiatric/Behavioral: Negative. Objective Physical Exam Vitals and nursing note reviewed. Constitutional: Appearance: Normal appearance. She is normal weight. HENT: Head: Normocephalic and atraumatic. Right Ear: External ear normal. Left Ear: External ear normal. Eyes: Conjunctiva/sclera: Conjunctivae normal. Cardiovascular: Rate and Rhythm: Normal rate and regular rhythm. Pulses: Normal pulses. Heart sounds: Normal heart sounds. Pulmonary: Effort: Pulmonary effort is normal. Breath sounds: Normal breath sounds. Musculoskeletal: General: Normal range of motion. Cervical back: Normal range of motion and neck supple. Skin: General: Skin is warm and dry. Neurological: Mental Status: She is alert and oriented to person, place, and time. Psychiatric: Behavior: Behavior normal. Assessment/Plan Natalya has had much improvement over the past few weeks. Heart palpitations are well controlled. Cardiac echo was normal. Continue current regimen of medications Ensure supplements given, and encouraged to drink one bottle daily Recommend follow up for weight check in 3 months Natalya was seen today for follow-up. Diagnoses and all orders for this visit: Heart palpitations Mild intermittent asthma without complication Weight loss, unintentional LUIS Gill 12/22/24 0758 documented in this encounterCleveland Clinic Hillcrest HospitalPAIEON [facility] Medical CenterZygrll80-01-7901 Miscellaneous Notes* Telephone Encounter - Sharri Vigil CNA - 12/06/2024 8:15 AM EDT Attempted to call patient with no answer. Left voicemail to call office. ----- Message from LUIS Capellan sent at 12/02/2024 7:41 PM EDT ----- Mild trace regurg in several valves, nothing that should be causing her discomfort. Will wait for holter monitor results, prior to referral to cardiology ----- Message ----- From: Miguelito Salvador MD Sent: 12/02/2024 4:10 PM EDT To: LUIS Gill documented in this encounterSouthview Medical Center07-28-2025 Telephone encounter Note* Telephone Encounter - Sharri Vigil CNA - 12/06/2024 8:15 AM EDT Attempted to call patient with no answer. Left voicemail to call office. ----- Message from LUIS Capellan sent at 12/02/2024 7:41 PM EDT ----- Mild trace regurg in several valves, nothing that should be causing her discomfort. Will wait for holter monitor results, prior to referral to cardiology ----- Message ----- From: Miguelito Salvador MD Sent: 12/02/2024 4:10 PM EDT To: LUIS Gill [facility]07-16-2025 History of Present illness Narrative* LUIS Gill - 11/24/2024 3:40 PM EDT Subjective CC: palpitations Patient ID: Natalya Kincaid is a 33 y.o. female. HPI Natalya presents today for heart palpitations. States this has been ongoing for the past 6 months. 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 Taking Atenolol as prescribed for palpitations but unable to tell if they are helping the palpitations or just making her tired enough to go to sleep and not notice them. States she notices the palpitations more when she is relaxed and lying down. Even if she does not feel anxious or stressed out, she experiences the palpitations. Notices them more in the evening/nighttime after she finishes work and her mind is less distracted. BP today 88/54 but asymptomatic. HR 70. Denies dizziness, lightheadedness, fatigue. Was previously on Atarax for anxiety which helped palpitations. Continues to vape but is actively trying to quit. Trying nicotine gum. Drinks two cups of decaf coffee and decreasing soda intake. Taking Symbicort 2 puffs in the AM, none in pm. 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 The following portions of the patient's history were reviewed and updated as appropriate: allergies, current medications, past family history, past medical history, past social history, past surgicalhistory, problem list, and medication reconciliation was completed including current medication andpost discharge medication. Review of Systems Constitutional: Negative. HENT: Negative. Eyes: Negative. Respiratory: Negative. Cardiovascular: Positive for palpitations. Gastrointestinal: Negative. Musculoskeletal: Negative. Skin: Negative. Neurological: Negative. Hematological: Negative. Psychiatric/Behavioral: The patient is nervous/anxious. Objective Physical Exam Vitals and nursing note reviewed. Constitutional: Appearance: Normal appearance. She is well-developed and normal weight. HENT: Head: Normocephalic and atraumatic. Right Ear: Hearing and external ear normal. Left Ear: Hearing and external ear normal. Nose: Nose normal. No rhinorrhea. Mouth/Throat: Lips: [place]. Mouth: Mucous membranes are moist. Pharynx: Oropharynx is clear. Uvula midline. No oropharyngeal exudate. Eyes: General: Lids are normal. Extraocular Movements: Extraocular movements intact. Conjunctiva/sclera: Conjunctivae normal. Pupils: Pupils are equal, round, and reactive to light. Cardiovascular: Rate and Rhythm: Normal rate and regular rhythm. Pulses: Normal pulses. Heart sounds: Normal heart sounds. Pulmonary: Effort: Pulmonary effort is normal. Breath sounds: Normal breath sounds and air entry. Abdominal: General: There is no distension. Tenderness: There is no abdominal tenderness. Musculoskeletal: General: Normal range of motion. Cervical back: Normal range of motion and neck supple. Lymphadenopathy: Cervical: No cervical adenopathy. Skin: General: Skin is warm and dry. Neurological: General: No focal deficit present. Mental Status: She is alert and oriented to person, place, and time. Psychiatric: Attention and Perception: Attention normal. Mood and Affect: Mood is anxious. Affect is tearful. Speech: Speech normal. Behavior: Behavior normal. Assessment/Plan Natalya was seen today for palpitations. Most recent EKG was unremarkable. Order placed for echocardiogram. Order for holter monitor placed. To be worn for 48 hr. I suspect the current dose of Atenolol may be causing her low blood pressure. Decrease to 12.5 mg =0.5 tablet po before bedtime. Start Atarax for anxiety 1-2 tablets every 8 hours PRN. Continue smoking cessation. I will see her for a follow-up in one month for palpitations. Natalya was seen today for palpitations. Diagnoses and all orders for this visit: Mild intermittent asthma without complication Heart palpitations - Echo complete W/O contrast; Future - Holter monitor 24-48 hour; Future - atenoloL (TENORMIN) 25 mg tablet; Take 0.5 tablets (12.5 mg total) by mouth before bedtime. Anxiety - hydrOXYzine (ATARAX) 25 mg tablet; 1-2 tabs every 8 hours as needed for anxiety - atenoloL (TENORMIN) 25 mg tablet; Take 0.5 tablets (12.5 mg total) by mouth before bedtime. LUIS Gill 11/24/24 1626 [facility] Miscellaneous Notes* Telephone Encounter - Sharmin Duran CMA - 10/15/2024 1:24 PM EDT ----- Message from LUIS Capellan sent at 10/14/2024 4:45 PM EDT ----- Vitamin d low will send in rx to pharmacy. Also b 12 on low end will send in rx for this also ----- Message ----- From: Lab, Background User Sent: 10/13/2024 6:49 PM EDT To: LUIS Gill * Telephone Encounter - Sharmin Duran CMA - 10/15/2024 1:24 PM EDT Called and informed patient of results, verbalized understanding with patient. [facility] Telephone encounter Note* Telephone Encounter - Sharmin Duran CMA - 10/15/2024 1:24 PM EDT ----- Message from LUIS Capellan sent at 10/14/2024 4:45 PM EDT ----- Vitamin d low will send in rx to pharmacy. Also b 12 on low end will send in rx for this also ----- Message ----- From: Lab, Background User Sent: 10/13/2024 6:49 PM EDT To: LUIS Gill [facility]06-06-[facility]25 Telephone encounter Note* Telephone Encounter - Sharmin Duran CMA - 10/15/2024 1:24 PM EDT Called and informed patient of results, verbalized understanding with patient. [facility]06-04-[facility] History of Present illness Narrative* LUIS Gill - 10/13/2024 10:00 AM EDT Subjective CC; New patient Patient ID: Natalya Kincaid is a 33 y.o. female. HPI Natalya presents as a new patient. She sees [facility] on a regular basis, but has not seen a PCP in sometime. She relates was seeing someone at an Urgent Care, but that person has moved away. Meñotes needing her Symbicort inhaler and also albuterol inhaler. She uses her albuterol 1-2 times a day, dependent on what her activity that day is. Such as if working around horses, will need the albuterol more frequently. She also has only been using her Symbicort 1 puff once a day, because was running out. She does note wheezing and shortness of breath. She denies night time awakenings, due to shortness of breath. She notes an irregular heartbeat and palpitations for sometime. She was diagnosed with anxiety about 7 years ago, and was put on hydroxyzine 50 mg. She started drinking decaf coffee, stepped back from her job, limited herself to one pop a day, and also stopped vaping, in order to control the heart palpitations, but this did not make much of a difference. Also has lost 11 pounds unintentionally over the past 5-6 months. The following portions of the patient's history were reviewed and updated as appropriate: allergies, current medications, past family history, past medical history, past social history, past surgicalhistory, problem list, and medication reconciliation was completed including current medication andpost discharge medication. Review of Systems Constitutional: Negative. HENT: Negative. Eyes: Negative. Respiratory: Negative. Cardiovascular: Positive for palpitations. Gastrointestinal: Negative. Musculoskeletal: Negative. Skin: Negative. Neurological: Negative. Hematological: Negative. Psychiatric/Behavioral: Negative for self-injury and suicidal ideas. The patient is nervous/anxious. Objective Physical Exam Vitals and nursing note reviewed. Constitutional: Appearance: Normal appearance. She is well-developed and normal weight. HENT: Head: Normocephalic and atraumatic. Right Ear: Hearing, tympanic membrane, ear canal and external ear normal. Left Ear: Hearing, tympanic membrane, ear canal and external ear normal. Nose: Nose normal. No rhinorrhea. Mouth/Throat: Lips: [place]. Mouth: Mucous membranes are moist. Pharynx: Oropharynx is clear. Uvula midline. No oropharyngeal exudate. Eyes: General: Lids are normal. Conjunctiva/sclera: Conjunctivae normal. Pupils: Pupils are equal, round, and reactive to light. Cardiovascular: Rate and Rhythm: Normal rate and regular rhythm. Pulses: Normal pulses. Heart sounds: Normal heart sounds. Pulmonary: Effort: Pulmonary effort is normal. Breath sounds: Normal breath sounds and air entry. Abdominal: General: Abdomen is flat. Bowel sounds are normal. There is no distension. Palpations: Abdomen is soft. Tenderness: There is no abdominal tenderness. Musculoskeletal: General: Normal range of motion. Cervical back: Normal range of motion and neck supple. Lymphadenopathy: Cervical: No cervical adenopathy. Skin: General: Skin is warm and dry. Neurological: General: No focal deficit present. Mental Status: She is alert and oriented to person, place, and time. Psychiatric: Attention and Perception: Attention and perception normal. Mood and Affect: Affect normal. Mood is anxious. Speech: Speech normal. Behavior: Behavior normal. Behavior is cooperative. Cognition and Memory: Cognition and memory normal. Assessment/Plan Will obtain complete set of labs today. Start Symbicort and sample of Airsupra.Discussed Tdap, not interested at this time, but states will read about it and decide. Symbicort 2 puffs am and pm Air Supra 2 inhalations qid prn CBC, CMP, Thyroid, Vitamin B 12 and Vitamin D 25 in office today EKG Tenormin 25 mg 1 po qhs Refuses Tdap today, but will think about it Follow up in 4 weeks for asthma Natalya was seen today for establish care. Diagnoses and all orders for this visit: Mild intermittent asthma without complication - budesonide-formoteroL (SYMBICORT) 160-4.5 mcg/actuation inhaler; Inhale 2 puffs in the morning and 2 puffs before bedtime. - albuterol-budesonide (AIRSUPRA) 90-80 mcg/actuation HFA aerosol inhaler; Inhale 2 Inhalations 4 (four) times a day as needed (wheezing, and shortness of breath). Anxiety - CBC auto differential - Comprehensive metabolic panel - Thyroid profile includes TSH FT4 - Vitamin B12 - Vitamin D 25 hydroxy - atenoloL (TENORMIN) 25 mg tablet; Take 1 tablet (25 mg total) by mouth before bedtime. Weight loss, unintentional - CBC auto differential - Comprehensive metabolic panel - Thyroid profile includes TSH FT4 - Vitamin B12 - Vitamin D 25 hydroxy Heart palpitations - ECG 12 lead; Future - atenoloL (TENORMIN) 25 mg tablet; Take 1 tablet (25 mg total) by mouth before bedtime. Need for vaccination LUSI Gill 10/13/24 1734 * Sharmin Duran CMA - 10/13/2024 10:00 AM EDT Venipuncture performed in the right arm. Patient had no adverse reactions. documented in this encounterCleveland Clinic Hillcrest HospitalPAIEON [facility] [id number] Evaluation note* Diagnosis Onset Date Resolution Status Admit Date Influenza A acuteFebruary 2024 10:32am [facility] Work Phone: [phone]) 528-421908-07-2024 History of Present illness Narrative* LUIS Valentin - 12/17/2023 1:00 PM EDT Natalya Kincaid is a 33 y.o.female. No LMP recorded. Patient has had an injection.. She presents for depo provera injection but desires to switch to pills today. She is sexually active with one male partner. Patient currrently vapes a lot due to increased stress at work and at home. Patient reports she was dismissed from [facility] behavioral health d/t missing an appointment. Her phyc meds have beenmaking her sick so she stopped them and states that makes her even more stressed. Current contraception:Depo-Provera OB History 4 Para 3 Term 3 AB 1 Living 3 SAB IAB Ectopic Multiple 0 Live Births 3 MEDICAL HX Past Medical History: Diagnosis Date Anemia Anxiety Bipolar 1 disorder ([facility]) Concussion jan 2022 Cystic fibrosis carrier Depression [...] in the morning. 84 tablet 3 omega 1-ljp-lrr-fish oil (Fish OiL) 300-1,000 mg capsule Take by mouth. (Patient not taking: Reported on 12/17/2023) No current facility-administered medications for this visit. ALLERGIES Allergies Allergen Reactions Shellfish Derived Hives and Rash Review of Systems Constitutional: Negative. Respiratory: Negative. Negative for chest tightness and shortness of breath. Cardiovascular: Positive for chest pain. Patient reports occasional chest pain. She was seen at [facility] and they didn't find anything sothey sent her home. Genitourinary: Negative. Negative for [...] advice on contraception Anxiety and depression - [place], [place]; Future Bipolar 1 disorder ([facility]) - [place], [place]; Future Encounter for initial prescription of [...] All questions answered. Educational material provided through [employer]. RTO for annual (due October 2024) or sooner as needed. JERO Bobby APRN-CNP Lisa M Franco, APRN-CNP 12/17/23 1331 documented in this encounterSouth[facility]06[facility] History of Present illness Narrative* LUIS Valentin - 10/29/2023 1:00 PM EDT Annual Well Woman Visit 10/29/2023 Subjective Natalya Kincaid is a 32 y.o. female who presents for annual physician gynecologist exam. Periods are rare, due to Depo Provera. Dysmenorrhea:none. Cyclic symptoms include anxiety. Denies intermenstrual bleeding, spotting, or abnormal discharge. Denies pelvic pain. Patient desires STD testing today. Complaints today: none Relationship status: in a relationship The patient reports that there is not domestic violence in her life. 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 MEDICAL HX Past Medical [...] appropriate muscle every 3 (three) months. omega 6-ooq-rvv-fish oil (Fish OiL) 300-1,000 mg capsule Take [...] Follow up in 1 year for annual physician gynecologist exam. Follow up as needed. Await pap. Discussed ASCCP screening guidelines. Discussed taking a multivitamin. Discussed Calcium and Vitamin D for prevention of osteoporosis. Discussed recommendations for HPV vaccine between 9-45 yo. Can be received at [facility] or the [employer] department. Discussed need for yearly mammogram after 40 yo. Discussed colon cancer screening recommendations to begin at 45 yo, patient to discuss with PCP. All questions answered. TIESHA Brenner APRN-CNP Lisa M Franco, APRN-CNP 10/29/23 1336 documented in this encounterCleveland Clinic Hillcrest HospitalConsignd [id number] History of Present illness Narrative* LUIS Valentin - 10/01/2023 11:00 AM EDT HPI Subjective Natalya Kincaid is a 32 y.o. female who presents for contraception counseling. Current contraception:abstinence. Periods are rare, due to previous use of Depo Provera. Dysmenorrhea: none. Cyclic symptoms include none. No intermenstrual bleeding, spotting, or discharge. The patient has no complaints today. 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 IF Yes , motivated to quit YES Pertinent past medical history: [place] HPV vaccinated: no Menstrual History: No LMP recorded (lmp unknown). Patient has had an injection. The following portions of the patient's history were reviewed and updated as appropriate: allergies, current medications, past family history, past medical history, past social history, past surgicalhistory, problem list, and medication reconciliation was completed including current medication andpost discharge medication. Review of Systems Constitutional: Negative. [...] between 9-45 yo. Can be received at [facility] or the health department. RTO for annual / pap (due now) or sooner as needed. TIESHA Brenner APRN-CNP Lisa M Franco, APRN-CNP 10/01/23 1220 documented in this encounterCleveland Clinic Hillcrest HospitalPAIEON [facility] [id number] Evaluation note* Encounter Date Diagnosis Assessment Notes Treatment Notes Treatment Clinical Notes May, Contact with and (marin spected) exposure to other viral communicable diseases (ICD-10 - Z20.828) May,OtherPatient is a 32 yo female who present dot urgent care with complaints of cough, shortness of breathand wheezing for the past 3 days. Denies [...] to the ER for her chest pain. [facility] Other 12-11-2023 Evaluation note* Encounter Date Diagnosis Assessment Notes Treatment Notes Treatment Clinical Notes Apr, Sore throat (ICD-10 - J02.9) Apr,cute pharyngitis due to other specified organisms (ICD-10 [...] you develop chest pain, shortness of breath. Apr,ontact with and (suspected) exposure to covid-19 (ICD-10 - Z20.822) Apr,Other specified bacterial agents as the cause of diseases classified elsewhere (ICD-10 - B96.89) [facility] Other 07-26-2023 Evaluation note* Encounter Date Diagnosis [...] with your dentist as soon as possible. Nov,entalgia (ICD-10 - K08.89) [facility] Other 02-13-2023 Evaluation note* Encounter Date Diagnosis Assessment Notes Treatment Notes Treatment Clinical Notes Jun, Mild intermittent asthma with ex acerbation (ICD-10 - J45.21) Jun,Mild persistent asthma with acute exacerbation (ICD-10 - J45.31) [facility] Other 11-17-2022 Evaluation note* Encounter Date Diagnosis Assessment Notes Treatment Notes Treatment Clinical Notes Mar, Sore throat (ICD-10 - J02.9) Mar,Viral URI (ICD-10 - J06.9) Advised patient that [...] treatment plan. Patient left in stable condition Mar,ontact with and (suspected) exposure to other viral communicable diseases (ICD-10 - Z20.828) [facility] Other 11-03-2022 Evaluation note* Encounter Date Diagnosis Assessment Notes Treatment Notes Treatment Clinical Notes Mar, Strain of neck muscle, initial e ncounter (ICD-10 - S16.1XXA) Mar,oncussion without loss of consciousness, subsequent encounter (ICD- 10 - S06.0X0D)31 y.o. female seen today for a 2 wek follow up for concussion. She was increased on her Amitriptyline to 50mg at her last appointment. Her current SCAT score symptoms 22 and symptom severity is 89. Some of the severity and symptoms are being worsened due to her stress at job situation and mental he alth issues. She is going to follow up with psychiatry which will help if they can get this under control. He concussion symptoms on exam today is much improved. She will start PT and F/U as needed after PT if not resolved. [facility] Other 11-03-2022 Evaluation note* Encounter Date Diagnosis Assessment Notes Treatment Notes Treatment Clinical Notes Mar, Elevated random blood glucose le araceli (ICD-10 - R73.09) Patient A1C is WNL Mar,Mild intermittent asthma with exacerbation (ICD-10 - J45.21)Take medications as directed with food. Complete all doses of steroids. Use inhaler or nebulizer atleast 2-3 times per day for next 48 hours. Increase fluid intake. Follow up with primary care provider is recommended to discuss treatment plan changes to asthma. Seek emergency help if difficulty breathing develops [facility] Other 09-24-2022 Evaluation note* Encounter Date Diagnosis Assessment Notes Treatment Notes Treatment Clinical Notes Jan, Post concussion syndrome (ICD-10 - F07.81) Patient appears to have symptoms of post concussion symptoms - referral made to Dr. Marino Amaya. Start [place] 3 supplement as discussed. [facility] Other 09-16-2022 Telephone encounter Note* Telephone Encounter - Betsy Alejandra - 01/25/2022 11:33 AM EDT Unfortunately we do not have much before the end of the year. Urgent appointments are saved for walk-ins and cancer patient's only. I scheduled Ms. Medrano for March 14. Left voicemail asking her tocall back should appointment date/time not work for her. Thank you. [id number] Miscellaneous Notes* Telephone Encounter - NyBetsy - 01/25/2022 11:33 AM EDT Unfortunately we [...] in September. Pleasecall patient o advise at [phone]. Thank you! documented in this [id number] Telephone encounter Note* Telephone Encounter - Vernell [...] in September. Pleasecall patient o advise at [phone]. Thank you! [id number] Evaluation note* Encounter Date Diagnosis Assessment Notes Treatment Notes Treatment Clinical Notes Nov, control counseling (ICD-10 - Z30.09) Discussed options and patient is agreeable with restarting Depo shot. test is negative. Nov,Mild persistent asthma with acute exacerbation (ICD-10 - J45.31)Take medications as directed with food. Complete all doses of steroids. Use inhaler or nebulizer atleast 2-3 times per day for next 48 hours. Increase fluid intake. Follow up if symptoms persist. Seek emergency help if difficulty breathing develops [facility] Other 01-10-2022 Evaluation note* Encounter Date Diagnosis Assessment Notes Treatment Notes Treatment Clinical Notes May, Walking pneumonia (ICD-10 - J18. 9) Take medications as directed. Rest and increase [...] it will take longer to get better [facility] Other 11-21-2021 Evaluation note* Encounter Date Diagnosis Assessment Notes Treatment Notes Treatment Clinical Notes Mar, Allergic contact dermatitis, uns pecified trigger (ICD-10 - L23.9) Mar,Weight loss of more than 10% body weight (ICD-10 - R63.4) We will start with this bloodwotk and go from there. Mar,Nausea (ICD-10 - R11.0) [facility] Other 11-16-2021 Evaluation note* Encounter Date Diagnosis Assessment Notes Treatment Notes Treatment Clinical Notes Mar, Herpes exposure (ICD-10 - Z20.82 8) [facility] Other 10-05-2021 Evaluation note* Encounter Date Diagnosis Assessment Notes Treatment Notes Treatment Clinical Notes Feb, Infected tooth (ICD-10 - K04.7) Take medications as directed.Highly encourage patient to contact dentist JOSI for further treatmentof infection. Do not take OTC medications like ibuprofen with prescriptions [facility] [employer] Other evaluation noteNo InformationNortAmerican Academic Health System [employer] Other evaluation note* Diagnosis Onset Date Resolution Status Carpal tunnel syndrome of left wrist acuteStrep pharyngitisacute [facility] Work Phone: evaluation note* Diagnosis Encounter for initial prescription of injectable contraceptive- Primary General counseling and advice for contraceptive management documented in this encounter [facility] dscoveredEvaluation note* Diagnosis Well woman exam with routine gynecological exam- Primary Routine gynecological examination Pap smear, as part of routine gynecological examination Screening for malignant neoplasm of the cervix Standardized adult depression screening tool completed History of abnormal cervical Pap smear documented in this encounter [facility] dscoveredEvaluation note* Diagnosis Onset Date Resolution Status Admit Date Influenza A acuteFebruary 2024 10:32am [facility] Work Phone: evaluation note* Diagnosis General counselling and advice on contraception- Primary Anxiety and depression Bipolar 1 disorder ([facility]) Encounter for initial prescription of contraceptive pills documented in this encounter [facility] dscoveredEvaluation note* Diagnosis Mild intermittent asthma without complication- Primary Anxiety Anxiety state, unspecified Weight loss, unintentional Loss of weight Heart palpitations Palpitations Need for vaccination Need for prophylactic vaccination and inoculation against unspecified single disease [facility]Evaluation [facility]* Diagnosis Vitamin B 12 deficiency- Primary Other B-complex deficiencies Low serum vitamin D [facility]* Diagnosis Mild intermittent asthma without complication- Primary Heart palpitations Palpitations Anxiety Anxiety state, unspecified [facility]* Diagnosis Heart palpitations- Primary Palpitations Mild intermittent asthma without complication Weight loss, unintentional Loss of weight [facility] Anxiety Anxiety state, unspecified [facility] Diagnosis Anxiety Anxiety state, unspecified [facility] Diagnosis Heart palpitations- Primary Palpitations Anxiety Anxiety state, unspecified Bipolar 1 disorder ([facility]) [facility] N[facility]ative - Reported* Type Description Date Medical History Depression Medical HistoryGestational diabetesMedical HistoryAnxietyHospitalization History child x2 [facility] Other Instructions* Attachments The following attachments cannot be sent through Care Everywhere. * Medroxyprogesterone, ADULT ([place]) [facility]* Attachments The following attachments cannot be sent through Care Everywhere. * Control Options ([place]) * Vaping ([place]) [facility]Inst[facility]* Attachments The following attachments cannot be sent through Care Everywhere. * Norethindrone, ADULT ([place]) * Stress ([place]) [facility]Inst[facility]* Attachments The following attachments cannot be sent through Care Everywhere. * Asthma in adults ([place]) documented in this encounterProHol[facility] SystemInstructionsNot on file [facility]* Attachments The following attachments cannot be sent through Care Everywhere. * Palpitations ([place]) [facility] SystemInstructionsNot on file [facility]Inst[facility]* Attachments The following attachments cannot be sent through Care Everywhere. * High-calorie, high-protein diet ([place]) [facility] [employer] SystemInstructionsNot on file documented in [facility] encounterWood [facility] SystemInstructionsNot on file documented in [facility] encounterWood [facility] SystemInstructionsNot on file documented in [facility] encounter[facility] SystemInstructions* Attachments The following attachments cannot be sent through Care Everywhere. * Anxiety (suspected) in adults ED discharge instructions ([place]) [facility] encounterWood [facility] SystemReason for referral (narrative)* Consultation (Urgent) - Pending ReviewSpecialtyDiagnoses / ProceduresReferred By ContactReferred To ContactBehavioral Health Diagnoses Anxiety and depression Bipolar 1 disorder ([facility] Quin Wall, ACCOUNT CONTACT ASSOCIATE-SOFTWARE TESTER [address] [place] [address] [facility] [address] [place] [id number] Referral IDStaRosetteStbryson DateExpiration DateVisits RequestedVisits [id number] Review Specialty Services Required [facility] Summary Purpose Family History No Family History Records FoundNo Family History Records FoundNo Family History Records FoundNo Family History Records FoundNo Family History Records FoundNo Family History Records Found Advance Directives Advance Directive Response Recorded Date/ Time Advance Directives No September 29 5:25pm Advance Directive Response Recorded Date/ Time Advance Directives No September 29 4:25pm Chief Complaint and Reason for Visit Chief Complaint Sore throat, bodyach es Reason for Visit Carpal tunnel syndro me of left wrist Strep pharyngitis Chief Complaint Admit Date cough, congestion, exposure to flu Febru 2024 10:32am Reason for Visit Admit Date Influenza A June 26, 2024 10:32am Chief Complaint Admit Date cough, congestion, exposure to flu Febru 2024 10:32am Unknown August 30, 2024 5:4 6pm Additional Source Comments REASON FOR VISIT (unrecogniz ed section and content) ReasonCommentsGynecologic ExamReasonCommentsContraceptionPt desires to switch to pill from DepoReasonCommentsEstablish CareReasonCommentsPalpitationsNot improvedReasonOnset CyvoLqccpvakPvwiymo65/28/2025ReasonCommentsFollow-upReason CommentsMed RefillReasonCommentsFollow-up INFORMATION SOURCE (unrecogn ized section and content) DATE CREATED AUTHOR 02/08/2022 [facility] DATE CREATED AUTHOR AUTHOR'S ORGANIZ ATION 07/04/2022 [facility] DATE CREATED AUTHOR AUTHOR'S ORGANIZ ATION 09/03/2024 [facility] DATE CREATED AUTHOR AUTHOR'S ORGANIZ ATION 11/29/2024 [facility] DATE CREATED AUTHOR AUTHOR'S ORGANIZ ATION 12/03/2024 [facility] DATE CREATED AUTHOR AUTHOR'S ORGANIZ ATION 03/21/2025 [facility] Care Teams (unrecognized sec tion and content) Team Status: Active Member Role Status Dates PHYSICIAN NO FAMILY Primary Care Provider Active Team Status: Inactive Member Role Status Dates PHYSICIAN NO FAMILY Primary Care Provider Active Start: September 30, 2023 End: September 30, 2023Ashanti Mendoza ProviderActiveStart: September 30, 2023 End: September 30, 2023Team MemberRelationshipSpecialtyStart DateEnd Date Ofelia Magana APRN-FNP [address] [place] [address] [facility]01/18/21 Team Status: Inactive Member Role Status Dates PHYSICIAN NO FAMILY Primary Care Provider Active Start: June 26, 2024 End: June 26, 2024Ashanti Mendoza ProviderActiveStart: June 26, 2024 End: June 26, 2024Team MemberRelationshipSpecialtyStart DateEnd Date Ofelia Magana APRN-FNP [address] [place] [address] PCP - [facility] Medicine01/18/21 Team Status: Inactive Member Role Status Dates Mateo Slade PA-C Attending Provider Active S tart: August 30, 2024 End: August 30, 2024Team MemberRelationshipSpecialtyStart DateEnd Date Maya Ramirez APRN-SOFTWARE TESTER [address], [place] [address] PCP - [facility]Mad[facility] Medicine10/13/24Team MemberRelationshipSpecialtyStart DateEnd Date Maya Ramirez APRN-SOFTWARE TESTER [address], [place], [place] [id number] PCP - [facility] Medicine10/13/24Team MemberRelationshipSpecialtyStart DateEnd Date Maya Ramirez APRNSOFTWARE TESTER [address], [place] [address] [facility] - [facility]10/13/24Team MemberRelationshipSpecialtyStart DateEnd Date Maya Ramirez [facility] [address], [place] [address] [facility] - [facility]10/13/24Team MemberRelationshipSpecialtyStart DateEnd Date Maya Ramirez [facility]NF[facility] [place] [address], [place] [address] [facility]10/13/24Team MemberRelationshipSpecialtyStart DateEnd Date Maya Ramirez [facility]NF[facility] [place] [address], [place] [address] [facility]10/13/24Team MemberRelationshipSpecialtyStart DateEnd Date Maya Ramirez [facility]NF[facility] [place] [address], [place] [address] PCP - [facility]10/13/24 Goals (unrecognized section and content) Goals may [...] BE BASED ON THE PRIMARY CLINICAL RECORDS. [facility] [employer] [facility]. provides no warranty or guarantee of the accuracy or completeness of information in this document.
[2025-05-11 10:47] LABS: Alanine Aminotransferase 27 U/L (14-59); Albumin Globulin Ratio 1.2; Albumin Level 3.7 g/dL (3.4-5.0); Alkaline Phosphatase 55 U/L (46-116); Anion Gap 10.9; Aspartate Amino Transferase 16 U/L (15-37); Blood Urea Nitrogen 8.0 mg/dL (7.0-18.0); Calcium 8.8 mg/dL (8.5-10.1); Carbon Dioxide 30.6 mmol/L (21.0-32.0); Chloride 104 mmol/L (98-107); Estimated GFR (African America >60 (>=60 mL/min/1.73m^2); Estimated GFR (Non-African Ame >60 (>=60 mL/min/1.73m^2); Globulin 3.2 g/dL; Glucose 89 mg/dL (74-106); Magnesium 2.1 mg/dL (1.8-2.4); Potassium 4.5 mmol/L (3.5-5.1); Sodium 141 mmol/L (136-145); Total Protein 6.9 g/dL (6.4-8.2)
== END 2025-05-11 10:03 | disposition home or self-care (01) ==
LOC: LAB 10:03
PROVIDERS: PCP Nurse Practitioner Family; Visit Provider Internal Medicine Interventional Cardiology
DX: R00.2 Palpitations (principal)
CPT/HCPCS: 36415; 80053; 83735